=== PATIENT | male | born 1955 | race Caucasian/White ===

== ENCOUNTER 2017-06-12 16:47 | Emergency (ER) | payer OTHER ==
[~2017-06-12] VITALS: Ht 180.3 cm; Wt 73.0 kg
[~2017-06-12 16:47] MED LIST: ASPI325 PO; ASPI81CH PO; ATOR20 PO; BP MED?; Bactrim Ds Tab1 EACH PO; CLOP75 PO; CODACE30 PO; CYCL10 PO; Diflucan100 MG PO; ELIQUIS5 MG PO; FENO160 PO; GLIP10ER PO; GLIP5ER PO; HYDR1TAB94 PO; METO25ER PO; NITR.4SL SL; Naprosyn500 MG PO; Norco 5-325 Ta1 EACH PO; Percocet 5-3251 EACH PO; Tylenol325 MG PO; Vibramycin100 MG PO
[2017-06-12] MEDS ORDERED: Norco 5-325 Ta1 EACH PO (18:27)
[2017-06-12] MEDS ORDERED: Zofran Odt4 MG SL (18:27)
[2017-09-25] MEDS ORDERED: CLIN300 (20:02)
[2017-09-25] MEDS ORDERED: Zofran Odt4 MG PO (23:45)
[2017-10-07] MEDS ORDERED: PIOG30 PO (10:12)
[2017-10-07] MEDS ORDERED: PRAV20 PO (10:12)
== END 2017-06-12 18:39 | disposition home or self-care (01) ==
LOC: ER 16:47
DX: R51 Headache (principal); I25.2 Old myocardial infarction; E11.9 Type 2 diabetes mellitus without complications; I48.91 Unspecified atrial fibrillation; F17.200 Nicotine dependence, unspecified, uncomplicated; Z88.5 Allergy status to narcotic agent; Z88.0 Allergy status to penicillin; Z91.012 Allergy to eggs; Z91.011 Allergy to milk products; Z91.018 Allergy to other foods; Z79.899 Other long term (current) drug therapy; Z79.84 Long term (current) use of oral hypoglycemic drugs; Z87.442 Personal history of urinary calculi; Z90.49 Acquired absence of other specified parts of digestive tract; Z86.73 Personal history of transient ischemic attack (TIA), and cerebral infarction without residual deficits
CPT/HCPCS: 70450; 96372; 99284; J1200; J2765

== ENCOUNTER 2017-06-22 18:58 | Emergency (ER) | payer OTHER ==
[~2017-06-22] VITALS: Ht 180.3 cm; Wt 73.5 kg
[~2017-06-22 18:58] MED LIST changes: +Zofran Odt4 MG SL
[2017-06-22 19:36] LABS: BASOPHILS ABSOLUTE AUTO 0.05 K/mm3 (0.00-0.23); BASOPHILS PERCENT AUTO 1 % (0-2); EOSINOPHILS PERCENT AUTO 2 % (0-6); Hematocrit 40.6 % (37.0-53.0); Hemoglobin 14.5 g/dL (13.5-17.5); IMMATURE GRAN ABSOLUTE AUTO 0.02 K/mm3 (0.00-0.10); IMMATURE GRAN PERCENT AUTO 0 % (0-1); LYMPHOCYTES ABSOLUTE AUTO 1.35 K/mm3 (0.84-5.20); LYMPHOCYTES PERCENT AUTO 22 % (21-46); MONOCYTES ABSOLUTE AUTO 0.37 K/mm3 (0.16-1.47); MONOCYTES PERCENT AUTO 6 % (4-13); Mean Corpuscular HGB 28.6 pg (26.0-34.0); Mean Corpuscular HGB Conc 35.7 g/dL (31.5-36.5); Mean Corpuscular Volume 80 fL (80-100); Mean Platelet Volume 10.5 fL (9.1-12.4); NEUTROPHILS PERCENT AUTO 69 % (41-73); Platelet Count 223 K/mm3 (150-400); RDW Coefficient Variation 12.8 % (11.7-14.2); RDW Standard Deviation 36.7 fL (35.1-46.3); Red Blood Cell Count 5.07 M/mm3 (4.30-5.90); White Blood Cell Count 6.09 K/mm3 (4.00-11.30)
[2017-06-22 20:02] LABS: Troponin I <0.015 ng/mL (0.000-0.040)
[2017-06-22 20:04] LABS: Alanine Aminotransfer (ALT/SGP 16 U/L (12-78); Albumin, Blood 3.6 g/dL (3.4-5.0); Albumin/Globulin Ratio 0.9 (0.8-1.8); Alk Phos 67 U/L (50-136); Anion Gap 10 mmol/L (6-16); Aspartate Aminotrans (AST/SGOT 14 U/L (12-37); Bilirubin, Total 0.4 mg/dL (0.1-1.0); Blood Urea Nitrogen 12 mg/dL (8-24); Bun/Creatinine Ratio 14.8 (12.0-20.0); CO2, Blood 24 mmol/L (21-32); Calcium, Blood 8.8 mg/dL (8.5-10.1); Chloride, Blood 101 mmol/L (98-108); Creatinine, Blood 0.81 mg/dL (0.60-1.20); Glomerular Filtration Rate >60 (60-); Glucose, Blood 270 mg/dL (70-99); Sodium, Blood 135 mmol/L (136-145); Total Protein, Blood 7.6 g/dL (6.4-8.2)
[2017-06-22] MEDS ORDERED: Zofran Odt8 MG SL (21:44)
[2017-06-22] MEDS ORDERED: PSEU120ER PO (21:44)
[2017-06-22] MEDS ORDERED: Afrin15 ML (21:44)
[2017-09-25] MEDS ORDERED: CLIN300 (20:02)
[2017-09-25] MEDS ORDERED: Zofran Odt4 MG PO (23:45)
[2017-10-07] MEDS ORDERED: PIOG30 PO (10:12)
[2017-10-07] MEDS ORDERED: PRAV20 PO (10:12)
== END 2017-06-22 21:55 | disposition home or self-care (01) ==
LOC: ER 18:58
PROVIDERS: Physician Assistant
DX: J01.90 Acute sinusitis, unspecified (principal); I25.2 Old myocardial infarction; E11.9 Type 2 diabetes mellitus without complications; E78.00 Pure hypercholesterolemia, unspecified; I48.91 Unspecified atrial fibrillation; Z86.73 Personal history of transient ischemic attack (TIA), and cerebral infarction without residual deficits; Z87.442 Personal history of urinary calculi; Z90.49 Acquired absence of other specified parts of digestive tract
CPT/HCPCS: 36415; 71046; 80053; 84484; 85025; 93005; 93010; 99284

== ENCOUNTER 2017-07-18 18:12 | Emergency (ER) | payer OTHER ==
[~2017-07-18] VITALS: Ht 180.3 cm; Wt 73.0 kg
[~2017-07-18 18:12] MED LIST changes: +Afrin15 ML; +PSEU120ER PO; +Zofran Odt8 MG SL
[2017-07-18] MEDS ORDERED: PSEU120ER PO (18:42)
[2017-07-18] MEDS ORDERED: Vibramycin100 MG PO (18:42)
[2017-09-25] MEDS ORDERED: CLIN300 (20:02)
[2017-09-25] MEDS ORDERED: Zofran Odt4 MG PO (23:45)
[2017-10-07] MEDS ORDERED: PIOG30 PO (10:12)
[2017-10-07] MEDS ORDERED: PRAV20 PO (10:12)
== END 2017-07-18 18:51 | disposition home or self-care (01) ==
LOC: ER 18:12
DX: J32.9 Chronic sinusitis, unspecified (principal); I25.2 Old myocardial infarction; E11.9 Type 2 diabetes mellitus without complications; I48.91 Unspecified atrial fibrillation; E78.00 Pure hypercholesterolemia, unspecified; F17.210 Nicotine dependence, cigarettes, uncomplicated; Z88.5 Allergy status to narcotic agent; Z88.0 Allergy status to penicillin; Z91.012 Allergy to eggs; Z91.011 Allergy to milk products; Z91.018 Allergy to other foods; Z79.899 Other long term (current) drug therapy; Z86.73 Personal history of transient ischemic attack (TIA), and cerebral infarction without residual deficits; Z87.442 Personal history of urinary calculi; Z90.49 Acquired absence of other specified parts of digestive tract
CPT/HCPCS: 99283

== ENCOUNTER 2017-08-15 03:47 | Emergency (ER) | payer OTHER ==
[~2017-08-15] VITALS: Ht 180.3 cm; Wt 72.6 kg
[2017-08-15] MEDS ORDERED: ERYT1OIN BOTHEYES (04:16)
[2017-09-25] MEDS ORDERED: CLIN300 (20:02)
[2017-09-25] MEDS ORDERED: Zofran Odt4 MG PO (23:45)
[2017-10-07] MEDS ORDERED: PRAV20 PO (10:12)
[2017-10-07] MEDS ORDERED: PIOG30 PO (10:12)
== END 2017-08-15 04:38 | disposition home or self-care (01) ==
LOC: ER 03:47
DX: H10.023 Other mucopurulent conjunctivitis, bilateral (principal); I25.2 Old myocardial infarction; E11.9 Type 2 diabetes mellitus without complications; I48.91 Unspecified atrial fibrillation; F17.210 Nicotine dependence, cigarettes, uncomplicated; Z88.5 Allergy status to narcotic agent; Z88.0 Allergy status to penicillin; Z91.012 Allergy to eggs; Z91.011 Allergy to milk products; Z91.018 Allergy to other foods; Z79.01 Long term (current) use of anticoagulants; Z79.84 Long term (current) use of oral hypoglycemic drugs; Z87.442 Personal history of urinary calculi; Z86.73 Personal history of transient ischemic attack (TIA), and cerebral infarction without residual deficits
CPT/HCPCS: 99283

== ENCOUNTER 2017-09-12 19:48 | Emergency (ER) | payer OTHER ==
[~2017-09-12] VITALS: Ht 180.3 cm; Wt 77.6 kg
[~2017-09-12 19:48] MED LIST changes: +ERYT1OIN BOTHEYES
[2017-09-12] MEDS ORDERED: Cleocin HCl300 MG PO (20:13)
== END 2017-09-12 20:28 | disposition home or self-care (01) ==
LOC: ER 19:48
DX: J03.90 Acute tonsillitis, unspecified (principal); I25.2 Old myocardial infarction; E11.9 Type 2 diabetes mellitus without complications; E78.5 Hyperlipidemia, unspecified; I48.91 Unspecified atrial fibrillation; F17.210 Nicotine dependence, cigarettes, uncomplicated; Z87.442 Personal history of urinary calculi; Z86.73 Personal history of transient ischemic attack (TIA), and cerebral infarction without residual deficits; Z88.5 Allergy status to narcotic agent; Z88.0 Allergy status to penicillin; Z91.012 Allergy to eggs; Z91.011 Allergy to milk products; Z91.018 Allergy to other foods; Z79.899 Other long term (current) drug therapy; Z79.84 Long term (current) use of oral hypoglycemic drugs
CPT/HCPCS: 99283; J1100

== ENCOUNTER 2017-09-15 18:24 | Emergency (ER) | payer OTHER ==
[~2017-09-15] VITALS: Ht 180.3 cm; Wt 77.6 kg
[~2017-09-15 18:24] MED LIST changes: +Cleocin HCl300 MG PO
[2017-09-15] MEDS ORDERED: PSEU120ER PO (19:10)
== END 2017-09-15 19:14 | disposition home or self-care (01) ==
LOC: ER 18:24
DX: J32.9 Chronic sinusitis, unspecified (principal); Z88.5 Allergy status to narcotic agent; Z88.0 Allergy status to penicillin; Z91.011 Allergy to milk products; Z91.012 Allergy to eggs; Z91.018 Allergy to other foods; Z79.899 Other long term (current) drug therapy; I25.2 Old myocardial infarction; Z86.73 Personal history of transient ischemic attack (TIA), and cerebral infarction without residual deficits; E11.9 Type 2 diabetes mellitus without complications; E78.5 Hyperlipidemia, unspecified; I48.91 Unspecified atrial fibrillation; F17.210 Nicotine dependence, cigarettes, uncomplicated
CPT/HCPCS: 99282

== ENCOUNTER 2017-12-10 20:49 | Emergency (ER) | payer OTHER ==
[~2017-12-10] VITALS: Ht 180.3 cm; Wt 171.0 kg
[~2017-12-10 20:49] MED LIST changes: +CLIN300; +PIOG30 PO; +PRAV20 PO; +Zofran Odt4 MG PO
[2017-12-10 22:01] LABS: BASOPHILS ABSOLUTE AUTO 0.05 K/mm3 (0.00-0.23); BASOPHILS PERCENT AUTO 1 % (0-2); EOSINOPHILS ABSOLUTE AUTO 0.11 K/mm3 (0.00-0.68); EOSINOPHILS PERCENT AUTO 2 % (0-6); Hemoglobin 13.7 g/dL (13.5-17.5); IMMATURE GRAN ABSOLUTE AUTO 0.02 K/mm3 (0.00-0.10); IMMATURE GRAN PERCENT AUTO 0 % (0-1); LYMPHOCYTES ABSOLUTE AUTO 1.52 K/mm3 (0.84-5.20); LYMPHOCYTES PERCENT AUTO 25 % (21-46); MONOCYTES ABSOLUTE AUTO 0.32 K/mm3 (0.16-1.47); MONOCYTES PERCENT AUTO 5 % (4-13); Mean Corpuscular HGB 28.1 pg (26.0-34.0); Mean Corpuscular HGB Conc 35.1 g/dL (31.5-36.5); Mean Corpuscular Volume 80 fL (80-100); Mean Platelet Volume 10.7 fL (9.1-12.4); NEUTROPHILS ABSOLUTE AUTO 4.17 K/mm3 (1.96-9.15); NEUTROPHILS PERCENT AUTO 67 % (41-73); Platelet Count 236 K/mm3 (150-400); RDW Coefficient Variation 12.7 % (11.7-14.2); RDW Standard Deviation 36.2 fL (35.1-46.3); Red Blood Cell Count 4.88 M/mm3 (4.30-5.90); White Blood Cell Count 6.19 K/mm3 (4.00-11.30)
[2017-12-10 22:01] LABS: Source, Urine Clean Catch
[2017-12-10 22:07] LABS: Bilirubin, Urine Neg (Neg); Blood, Urine Neg (Neg); Glucose Qualitative, Urine 4+ (Neg); Ketones, Urine Neg (Neg); Leukocyte Esterase, Urine Neg (Neg); Nitrite, Urine Neg (Neg); Protein, Urine 1+ (Neg); Specific Gravity, Urine 1.025 (1.003-1.022); Urobilinogen, Urine NORM (Normal)
[2017-12-10 22:12] LABS: Appearance, Urine Clear (Clear); Color, Urine Yellow (P-Yellow)
[2017-12-10 22:17] LABS: Alanine Aminotransfer (ALT/SGP 15 U/L (12-78); Albumin, Blood 3.8 g/dL (3.4-5.0); Alk Phos 55 U/L (50-136); Anion Gap 9 mmol/L (6-16); Aspartate Aminotrans (AST/SGOT 9 U/L (12-37); Bilirubin, Total 0.6 mg/dL (0.1-1.0); Blood Urea Nitrogen 17 mg/dL (8-24); Bun/Creatinine Ratio 19.6 (12.0-20.0); CO2, Blood 23 mmol/L (21-32); Calcium, Blood 8.6 mg/dL (8.5-10.1); Chloride, Blood 104 mmol/L (98-108); Creatinine, Blood 0.87 mg/dL (0.60-1.20); Globulin, Blood 3.7 g/dL (2.2-4.0); Glomerular Filtration Rate >60 (60-); Glucose, Blood 260 mg/dL (70-99); Potassium, Blood 3.9 mmol/L (3.5-5.5); Sodium, Blood 136 mmol/L (136-145); Total Protein, Blood 7.5 g/dL (6.4-8.2)
== END 2017-12-11 01:13 | disposition home or self-care (01) ==
LOC: ER 20:49
PROVIDERS: Emergency Medicine
DX: R51 Headache (principal); Z88.5 Allergy status to narcotic agent; Z88.0 Allergy status to penicillin; Z91.012 Allergy to eggs; Z91.011 Allergy to milk products; Z91.018 Allergy to other foods; Z79.899 Other long term (current) drug therapy; E11.9 Type 2 diabetes mellitus without complications; I25.2 Old myocardial infarction; I48.91 Unspecified atrial fibrillation; E78.5 Hyperlipidemia, unspecified; F17.210 Nicotine dependence, cigarettes, uncomplicated
CPT/HCPCS: 36415; 80053; 85025; 96374; 99283; J1885

== ENCOUNTER 2018-06-16 21:49 | Emergency (ER) | payer OTHER ==
[~2018-06-16] VITALS: Ht 180.3 cm; Wt 74.8 kg
[2018-06-16 22:28] LABS: BASOPHILS ABSOLUTE AUTO 0.05 K/mm3 (0.00-0.23); BASOPHILS PERCENT AUTO 1 % (0-2); EOSINOPHILS ABSOLUTE AUTO 0.19 K/mm3 (0.00-0.68); EOSINOPHILS PERCENT AUTO 3 % (0-6); Hematocrit 43.9 % (37.0-53.0); IMMATURE GRAN ABSOLUTE AUTO 0.01 K/mm3 (0.00-0.10); IMMATURE GRAN PERCENT AUTO 0 % (0-1); LYMPHOCYTES ABSOLUTE AUTO 1.28 K/mm3 (0.84-5.20); LYMPHOCYTES PERCENT AUTO 23 % (21-46); MONOCYTES ABSOLUTE AUTO 0.32 K/mm3 (0.16-1.47); MONOCYTES PERCENT AUTO 6 % (4-13); Mean Corpuscular HGB Conc 34.2 g/dL (31.5-36.5); Mean Corpuscular Volume 82 fL (80-100); Mean Platelet Volume 10.7 fL (9.1-12.4); NEUTROPHILS ABSOLUTE AUTO 3.69 K/mm3 (1.96-9.15); NEUTROPHILS PERCENT AUTO 67 % (41-73); Platelet Count 207 K/mm3 (150-400); RDW Coefficient Variation 12.5 % (11.7-14.2); RDW Standard Deviation 37.6 fL (35.1-46.3); Red Blood Cell Count 5.35 M/mm3 (4.30-5.90); White Blood Cell Count 5.54 K/mm3 (4.00-11.30)
[2018-06-16 22:47] LABS: Alanine Aminotransfer (ALT/SGP 11 U/L (12-78); Albumin, Blood 4.1 g/dL (3.4-5.0); Alk Phos 68 U/L (50-136); Anion Gap 8 mmol/L (6-16); Aspartate Aminotrans (AST/SGOT 10 U/L (12-37); Bilirubin, Total 0.6 mg/dL (0.1-1.0); Blood Urea Nitrogen 19 mg/dL (8-24); Bun/Creatinine Ratio 18.8 (12.0-20.0); CO2, Blood 26 mmol/L (21-32); Calcium, Blood 8.8 mg/dL (8.5-10.1); Chloride, Blood 98 mmol/L (98-108); Creatinine, Blood 1.01 mg/dL (0.60-1.20); Globulin, Blood 4.1 g/dL (2.2-4.0); Glomerular Filtration Rate >60 (60-); Glucose, Blood 307 mg/dL (70-99); Potassium, Blood 4.4 mmol/L (3.5-5.5); Sodium, Blood 132 mmol/L (136-145); Total Protein, Blood 8.2 g/dL (6.4-8.2); Troponin I <0.015 ng/mL (0.000-0.040)
[2018-07-04] MEDS ORDERED: Cleocin HCl300 MG PO (19:52)
== END 2018-06-16 23:44 | disposition home or self-care (01) ==
LOC: ER 21:49
PROVIDERS: Emergency Medicine
DX: R07.9 Chest pain, unspecified (principal); E11.9 Type 2 diabetes mellitus without complications; E78.00 Pure hypercholesterolemia, unspecified; I25.2 Old myocardial infarction; I48.91 Unspecified atrial fibrillation; F17.210 Nicotine dependence, cigarettes, uncomplicated; Z88.5 Allergy status to narcotic agent; Z88.0 Allergy status to penicillin; Z91.011 Allergy to milk products; Z91.02 Food additives allergy status; Z79.84 Long term (current) use of oral hypoglycemic drugs; Z79.899 Other long term (current) drug therapy
CPT/HCPCS: 36415; 71046; 80053; 83690; 84484; 85025; 93005; 93010; 99285-25

== ENCOUNTER 2018-06-23 10:00 | Emergency (ER) | payer OTHER ==
[~2018-06-23] VITALS: Ht 180.3 cm; Wt 74.4 kg
[2018-06-23 10:37] LABS: BASOPHILS ABSOLUTE AUTO 0.03 K/mm3 (0.00-0.23); BASOPHILS PERCENT AUTO 0 % (0-2); EOSINOPHILS ABSOLUTE AUTO 0.11 K/mm3 (0.00-0.68); EOSINOPHILS PERCENT AUTO 1 % (0-6); Hematocrit 46.5 % (37.0-53.0); Hemoglobin 15.9 g/dL (13.5-17.5); IMMATURE GRAN ABSOLUTE AUTO 0.02 K/mm3 (0.00-0.10); IMMATURE GRAN PERCENT AUTO 0 % (0-1); LYMPHOCYTES ABSOLUTE AUTO 1.77 K/mm3 (0.84-5.20); LYMPHOCYTES PERCENT AUTO 22 % (21-46); MONOCYTES ABSOLUTE AUTO 0.54 K/mm3 (0.16-1.47); MONOCYTES PERCENT AUTO 7 % (4-13); Mean Corpuscular HGB 27.6 pg (26.0-34.0); Mean Corpuscular HGB Conc 34.2 g/dL (31.5-36.5); Mean Corpuscular Volume 81 fL (80-100); Mean Platelet Volume 11.2 fL (9.1-12.4); NEUTROPHILS PERCENT AUTO 70 % (41-73); Platelet Count 251 K/mm3 (150-400); RDW Coefficient Variation 12.4 % (11.7-14.2); Red Blood Cell Count 5.76 M/mm3 (4.30-5.90); White Blood Cell Count 8.17 K/mm3 (4.00-11.30)
[2018-06-23 10:53] LABS: Alanine Aminotransfer (ALT/SGP 10 U/L (12-78); Albumin, Blood 4.2 g/dL (3.4-5.0); Alk Phos 68 U/L (50-136); Anion Gap 11 mmol/L (6-16); Aspartate Aminotrans (AST/SGOT 11 U/L (12-37); Bilirubin, Total 1.2 mg/dL (0.1-1.0); Blood Urea Nitrogen 20 mg/dL (8-24); Bun/Creatinine Ratio 17.1 (12.0-20.0); CO2, Blood 24 mmol/L (21-32); Calcium, Blood 8.9 mg/dL (8.5-10.1); Chloride, Blood 97 mmol/L (98-108); Creatinine, Blood 1.17 mg/dL (0.60-1.20); Globulin, Blood 4.4 g/dL (2.2-4.0); Glomerular Filtration Rate >60 (60-); Glucose, Blood 227 mg/dL (70-99); Potassium, Blood 4.2 mmol/L (3.5-5.5); Sodium, Blood 132 mmol/L (136-145); Total Protein, Blood 8.6 g/dL (6.4-8.2)
[2018-06-23 11:13] LABS: Influenza A Negative (NEGATIVE); Influenza B Negative (NEGATIVE)
[2018-06-23 14:09] LABS: Source, Urine Clean Catch
[2018-06-23 14:40] LABS: Appearance, Urine Clear (Clear); Bilirubin, Urine Neg (Neg); Blood, Urine Neg (Neg); Color, Urine Yellow (P-Yellow); Glucose Qualitative, Urine 4+ (Neg); Ketones, Urine 3+ (Neg); Leukocyte Esterase, Urine Neg (Neg); Nitrite, Urine Neg (Neg); Protein, Urine 2+ (Neg); Specific Gravity, Urine 1.015 (1.003-1.022); Urobilinogen, Urine NORM (Normal)
[2018-06-23 14:47] LABS: White Blood Cells, Urine Not Seen /hpf (0-5)
[2018-06-23 14:48] LABS: Bacteria Not Seen /hpf; Red Blood Cells, Urine Not Seen /hpf (0-2); Squamous Epithelial Cells Rare /hpf (Few)
[2018-06-23] MEDS ORDERED: Zofran8 MG PO (14:57)
[2018-07-04] MEDS ORDERED: Cleocin HCl300 MG PO (19:52)
== END 2018-06-23 15:10 | disposition home or self-care (01) ==
LOC: ER 10:00
PROVIDERS: Emergency Medicine
DX: J06.9 Acute upper respiratory infection, unspecified (principal); R41.0 Disorientation, unspecified; R04.0 Epistaxis; E11.9 Type 2 diabetes mellitus without complications; E78.00 Pure hypercholesterolemia, unspecified; I25.2 Old myocardial infarction; I48.91 Unspecified atrial fibrillation; Z87.442 Personal history of urinary calculi; Z86.73 Personal history of transient ischemic attack (TIA), and cerebral infarction without residual deficits; Z79.84 Long term (current) use of oral hypoglycemic drugs; Z79.899 Other long term (current) drug therapy; Z91.012 Allergy to eggs; Z88.8 Allergy status to other drugs, medicaments and biological substances; Z91.011 Allergy to milk products; Z88.0 Allergy status to penicillin; Z87.891 Personal history of nicotine dependence
CPT/HCPCS: 36415; 70450; 71046; 80053; 81001; 83605; 85025; 87040; 87804; 96361; 96374; 96375; 99284-25; J1885; J2405; J7120

== ENCOUNTER 2018-07-02 21:23 | Emergency (ER) | payer OTHER ==
[~2018-07-02] VITALS: Ht 182.9 cm; Wt 77.1 kg
[~2018-07-02 21:23] MED LIST changes: +Zofran8 MG PO
[2018-07-02 21:46] LABS: BASOPHILS ABSOLUTE AUTO 0.05 K/mm3 (0.00-0.23); BASOPHILS PERCENT AUTO 1 % (0-2); EOSINOPHILS ABSOLUTE AUTO 0.14 K/mm3 (0.00-0.68); EOSINOPHILS PERCENT AUTO 2 % (0-6); Hematocrit 40.5 % (37.0-53.0); Hemoglobin 13.9 g/dL (13.5-17.5); IMMATURE GRAN ABSOLUTE AUTO 0.02 K/mm3 (0.00-0.10); IMMATURE GRAN PERCENT AUTO 0 % (0-1); LYMPHOCYTES ABSOLUTE AUTO 1.22 K/mm3 (0.84-5.20); LYMPHOCYTES PERCENT AUTO 14 % (21-46); MONOCYTES ABSOLUTE AUTO 0.38 K/mm3 (0.16-1.47); MONOCYTES PERCENT AUTO 4 % (4-13); Mean Corpuscular HGB Conc 34.3 g/dL (31.5-36.5); Mean Corpuscular Volume 82 fL (80-100); Mean Platelet Volume 10.3 fL (9.1-12.4); NEUTROPHILS ABSOLUTE AUTO 6.91 K/mm3 (1.96-9.15); NEUTROPHILS PERCENT AUTO 79 % (41-73); Platelet Count 269 K/mm3 (150-400); RDW Coefficient Variation 12.5 % (11.7-14.2); RDW Standard Deviation 37.3 fL (35.1-46.3); Red Blood Cell Count 4.96 M/mm3 (4.30-5.90); White Blood Cell Count 8.72 K/mm3 (4.00-11.30)
[2018-07-02 22:00] LABS: International Normalized Ratio 0.94
[2018-07-02 22:06] LABS: Alanine Aminotransfer (ALT/SGP 14 U/L (12-78); Albumin, Blood 3.8 g/dL (3.4-5.0); Alk Phos 64 U/L (50-136); Anion Gap 7 mmol/L (6-16); Aspartate Aminotrans (AST/SGOT 10 U/L (12-37); Bilirubin, Total 0.7 mg/dL (0.1-1.0); Blood Urea Nitrogen 15 mg/dL (8-24); Bun/Creatinine Ratio 15.7 (12.0-20.0); CO2, Blood 25 mmol/L (21-32); Calcium, Blood 8.7 mg/dL (8.5-10.1); Chloride, Blood 101 mmol/L (98-108); Creatinine, Blood 0.96 mg/dL (0.60-1.20); Glomerular Filtration Rate >60 (60-); Glucose, Blood 228 mg/dL (70-99); Potassium, Blood 3.9 mmol/L (3.5-5.5); Sodium, Blood 133 mmol/L (136-145); Total Protein, Blood 7.8 g/dL (6.4-8.2)
[2018-07-04] MEDS ORDERED: Cleocin HCl300 MG PO (19:52)
== END 2018-07-03 00:01 | disposition left against medical advice (07) ==
LOC: ER 21:23
PROVIDERS: Emergency Medicine
DX: R51 Headache (principal); R11.0 Nausea; E11.9 Type 2 diabetes mellitus without complications; E78.5 Hyperlipidemia, unspecified; F17.210 Nicotine dependence, cigarettes, uncomplicated; I25.2 Old myocardial infarction; I48.91 Unspecified atrial fibrillation; Z88.5 Allergy status to narcotic agent; Z88.0 Allergy status to penicillin; Z91.011 Allergy to milk products; Z91.02 Food additives allergy status; Z79.84 Long term (current) use of oral hypoglycemic drugs; Z79.899 Other long term (current) drug therapy; Z87.442 Personal history of urinary calculi
CPT/HCPCS: 36415; 80053; 85025; 85610; 99281

== ENCOUNTER 2018-07-06 18:31 | Inpatient (IN) | payer OTHER ==
[~2018-07-06] VITALS: Ht 180.3 cm; Wt 76.7 kg
[2018-07-06 18:57] LABS: BASOPHILS ABSOLUTE AUTO 0.05 K/mm3 (0.00-0.23); BASOPHILS PERCENT AUTO 1 % (0-2); EOSINOPHILS ABSOLUTE AUTO 0.23 K/mm3 (0.00-0.68); EOSINOPHILS PERCENT AUTO 2 % (0-6); Hematocrit 40.2 % (37.0-53.0); Hemoglobin 13.6 g/dL (13.5-17.5); IMMATURE GRAN ABSOLUTE AUTO 0.03 K/mm3 (0.00-0.10); IMMATURE GRAN PERCENT AUTO 0 % (0-1); LYMPHOCYTES ABSOLUTE AUTO 1.23 K/mm3 (0.84-5.20); LYMPHOCYTES PERCENT AUTO 13 % (21-46); MONOCYTES ABSOLUTE AUTO 0.58 K/mm3 (0.16-1.47); MONOCYTES PERCENT AUTO 6 % (4-13); Mean Corpuscular HGB 27.6 pg (26.0-34.0); Mean Corpuscular HGB Conc 33.8 g/dL (31.5-36.5); Mean Corpuscular Volume 82 fL (80-100); Mean Platelet Volume 10.5 fL (9.1-12.4); NEUTROPHILS ABSOLUTE AUTO 7.72 K/mm3 (1.96-9.15); NEUTROPHILS PERCENT AUTO 79 % (41-73); Platelet Count 265 K/mm3 (150-400); RDW Coefficient Variation 12.3 % (11.7-14.2); RDW Standard Deviation 36.7 fL (35.1-46.3); Red Blood Cell Count 4.93 M/mm3 (4.30-5.90); White Blood Cell Count 9.84 K/mm3 (4.00-11.30)
[2018-07-06 19:12] LABS: Alanine Aminotransfer (ALT/SGP 20 U/L (12-78); Albumin, Blood 3.5 g/dL (3.4-5.0); Albumin/Globulin Ratio 0.8 (0.8-1.8); Alk Phos 80 U/L (50-136); Anion Gap 7 mmol/L (6-16); Aspartate Aminotrans (AST/SGOT 13 U/L (12-37); Bilirubin, Total 0.4 mg/dL (0.1-1.0); Blood Urea Nitrogen 15 mg/dL (8-24); Bun/Creatinine Ratio 15.3 (12.0-20.0); CO2, Blood 26 mmol/L (21-32); Calcium, Blood 8.7 mg/dL (8.5-10.1); Chloride, Blood 101 mmol/L (98-108); Creatinine, Blood 0.98 mg/dL (0.60-1.20); Globulin, Blood 4.3 g/dL (2.2-4.0); Glomerular Filtration Rate >60 (60-); Glucose, Blood 214 mg/dL (70-99); Potassium, Blood 3.8 mmol/L (3.5-5.5); Sodium, Blood 134 mmol/L (136-145); Total Protein, Blood 7.8 g/dL (6.4-8.2)
[2018-07-07 06:09] LABS: BASOPHILS ABSOLUTE AUTO 0.04 K/mm3 (0.00-0.23); BASOPHILS PERCENT AUTO 1 % (0-2); EOSINOPHILS ABSOLUTE AUTO 0.23 K/mm3 (0.00-0.68); EOSINOPHILS PERCENT AUTO 3 % (0-6); Hematocrit 35.3 % (37.0-53.0); Hemoglobin 12.1 g/dL (13.5-17.5); IMMATURE GRAN ABSOLUTE AUTO 0.02 K/mm3 (0.00-0.10); IMMATURE GRAN PERCENT AUTO 0 % (0-1); LYMPHOCYTES ABSOLUTE AUTO 1.07 K/mm3 (0.84-5.20); LYMPHOCYTES PERCENT AUTO 13 % (21-46); MONOCYTES ABSOLUTE AUTO 0.61 K/mm3 (0.16-1.47); MONOCYTES PERCENT AUTO 7 % (4-13); Mean Corpuscular HGB 27.4 pg (26.0-34.0); Mean Corpuscular HGB Conc 34.3 g/dL (31.5-36.5); Mean Corpuscular Volume 80 fL (80-100); Mean Platelet Volume 10.6 fL (9.1-12.4); NEUTROPHILS ABSOLUTE AUTO 6.27 K/mm3 (1.96-9.15); NEUTROPHILS PERCENT AUTO 76 % (41-73); Platelet Count 231 K/mm3 (150-400); RDW Coefficient Variation 12.3 % (11.7-14.2); RDW Standard Deviation 35.7 fL (35.1-46.3); Red Blood Cell Count 4.41 M/mm3 (4.30-5.90); White Blood Cell Count 8.24 K/mm3 (4.00-11.30)
[2018-07-07 06:25] LABS: Anion Gap 9 mmol/L (6-16); Blood Urea Nitrogen 15 mg/dL (8-24); Bun/Creatinine Ratio 16.7 (12.0-20.0); CO2, Blood 23 mmol/L (21-32); Chloride, Blood 104 mmol/L (98-108); Glomerular Filtration Rate >60 (60-); Glucose, Blood 213 mg/dL (70-99); Potassium, Blood 3.9 mmol/L (3.5-5.5); Sodium, Blood 136 mmol/L (136-145)
--- NOTE | 2018-07-07 10:51 | NUR ---
[facility] CLINICAL VISIT: Introduced myself to pt and with his permission discussed his concerns. He missed work last night due to hospitalization and does not feel he can tonight or he will lose his job. He and his moved here 3 years ago. He's a combat . He does not want to access 's services or health care that he may be eligible for. He does not have his rent money due in two days and is worried he "will be out on the street". We discussed landlord-tenant laws in [place] and I gave him a number to call to get information on mandatory notice and eviction laws for renters. Booklet of resources given to him with plan for him to call [facility] for rent or other forms of assistance. He states all his sick time has been used up with another illness recently. He works nights. He could do outpatient IV therapy in the daytime if his r foot/5th toe infection could be treated as an outpatient. He expresses his intent to leave at 4:30 pm today with or without d/c orders. Report called to on my visit and report given to RN. Pt states he has an advanced directive and wants to be rescusitated if needed. He thought we had a copy on file but we do not. Pt hoping his will show up soon. SHe does not have a phone and he does not have a ride without her. He has their cell phone with him. He thinks his may have a copy of his AD that we can copy in her purse. I offered to complete a POLST with the pt. He was noncomittal re: pursuing that. Pt was initially very chaitanya and angry appearing during our visit but as we talked became less so. He was appreciative of the information and contact info for [facility] and local resources. He has lived in the same rental for three years. He states other than his he does not have any other family locally or otherwise. He has a past medical hx of a-fib and takes Eliquis, CVA, DM with poor control/compliance, CAD, migranes and syncopal episodes. I encouraged him to follow medical advice to preserve his foot and health so that he could continue to be independent and have some level of quality of life. I touched on complications of noncompliance with an infection such as his and his other health issues. Will enter orders for manager social work re: additional community resources that may be available to him.
--- NOTE | 2018-07-07 12:17 | NUR ---
PT REFUSES CBG CHECKS AND INSULIN. DR. CEDILLO AWARE.
--- NOTE | 2018-07-07 16:28 | NUR ---
SHIFT SUMMARY NO ACUTE CHANGES SINCE ARRIVAL TO UNIT. VSS. PT CONTINUES TO REFUSE CBGS AND INSULIN. MEDICATED X1 WITH IV FENTANYL FOR PAIN. PT APPEARS TO BE COMFORTABLE AT THIS TIME. INDEPENDENT IN ROOM. IV IS SL EXCEPT FOR SCHEDULED IV ABX. RIGHT DORSAL FOOT ERYTHEMA MARKED AND RIGHT 5TH TOE IS OPEN TO AIR. WOUND DOCUMENTATION ON CHART. AT BEDSIDE AT THIS TIME AND THIS RN ENCOURAGED TO BRING IN HOME MED ELIQUIS. CALL LIGHT WITHIN REACH. WILL CONT TO MONITOR.
[2018-07-08 05:58] LABS: BASOPHILS ABSOLUTE AUTO 0.04 K/mm3 (0.00-0.23); BASOPHILS PERCENT AUTO 1 % (0-2); EOSINOPHILS ABSOLUTE AUTO 0.21 K/mm3 (0.00-0.68); EOSINOPHILS PERCENT AUTO 3 % (0-6); Hematocrit 33.4 % (37.0-53.0); Hemoglobin 11.3 g/dL (13.5-17.5); IMMATURE GRAN ABSOLUTE AUTO 0.02 K/mm3 (0.00-0.10); IMMATURE GRAN PERCENT AUTO 0 % (0-1); LYMPHOCYTES ABSOLUTE AUTO 1.08 K/mm3 (0.84-5.20); LYMPHOCYTES PERCENT AUTO 14 % (21-46); MONOCYTES ABSOLUTE AUTO 0.69 K/mm3 (0.16-1.47); MONOCYTES PERCENT AUTO 9 % (4-13); Mean Corpuscular HGB 27.8 pg (26.0-34.0); Mean Corpuscular HGB Conc 33.8 g/dL (31.5-36.5); Mean Corpuscular Volume 82 fL (80-100); Mean Platelet Volume 10.1 fL (9.1-12.4); NEUTROPHILS ABSOLUTE AUTO 5.79 K/mm3 (1.96-9.15); NEUTROPHILS PERCENT AUTO 74 % (41-73); Platelet Count 231 K/mm3 (150-400); RDW Coefficient Variation 12.4 % (11.7-14.2); RDW Standard Deviation 37.7 fL (35.1-46.3); Red Blood Cell Count 4.06 M/mm3 (4.30-5.90); White Blood Cell Count 7.83 K/mm3 (4.00-11.30)
[2018-07-08 06:20] LABS: Anion Gap 7 mmol/L (6-16); Blood Urea Nitrogen 14 mg/dL (8-24); Bun/Creatinine Ratio 13.3 (12.0-20.0); CO2, Blood 26 mmol/L (21-32); Calcium, Blood 7.9 mg/dL (8.5-10.1); Chloride, Blood 104 mmol/L (98-108); Creatinine, Blood 1.05 mg/dL (0.60-1.20); Glomerular Filtration Rate >60 (60-); Glucose, Blood 201 mg/dL (70-99); Potassium, Blood 4.2 mmol/L (3.5-5.5); Sodium, Blood 137 mmol/L (136-145)
--- NOTE | 2018-07-08 06:41 | NUR ---
SUMMARY PT NON COMPLIANT WITH DIABETIC CARE AND DIET. CURSING AT STAFF AND ALLOWING MINIMAL ASSESSMENT AND CHECKS. APOLOGETIC FOR HUSBANDS BEHAVIOR. PTY DENIES BEING DIABETIC. PTS REPORTS SHE BROUGHT IN HIS ELIQUIS AND HE TOOK IT APPROX 2029, BUT PT REFUSES TO ALLOW NURSE TO SEND MED FOR CONFIRMATION AND FOR SCAN BAR PLACEMENT. DISCUSSED PROCEDURE WITH PT AND IMPORTANCE AND PT CONTINUES TO REFUSE.
--- NOTE | 2018-07-08 18:23 | NUR ---
SUMMARY NO ACUTE CHANGES T/O SHIFT. PT REFUSED CBGS T/O DAY. REPORTED TOOK OWN ELIQUIS, REFUSED HOSPITAL DOSE. SHOWERED THIS AFTERNOON. DIME SIZED AREA OF R FIFTH TOE OPENED THIS AFTERNOON. PT REFUSED BANDAID TO TOE. IV ABX ADMINISTERED PER ORDERS. MEDICATED PER ORDERS FOR PAIN T/O SHIFT. CALL LIGHT IN REACH.
--- NOTE | 2018-07-09 10:40 | NUR ---
DR WHALEN IN TO SEE PT.
--- NOTE | 2018-07-09 12:06 | NUR ---
RUBY ENGINEER IN TO SEE PT.
--- NOTE | 2018-07-09 12:09 | NUR ---
PLACED DRESSING TO R FOOT PER ORDERS.
--- NOTE | 2018-07-09 16:08 | NUR ---
DR DASH CONSULT DR DASH NOT SPREADER BOX OPERATOR UNTIL JUL 13. NOT TAKING CONSULT AT THIS TIME. CALL ON JUL 13.
--- NOTE | 2018-07-09 17:15 | NUR ---
SUMMARY NO ACUTE CHANGES T/O SHIFT. PT TOILETING INDEPENDENTLY. REPORTED VOIDING AND HAD BM TODAY. CONTINUES TO REFUSE CBG CHECKS. MEDICATED PER ORDERS T/O SHIFT FOR PAIN TO R FOOT. VANCO ADDED TO ABX REGIMEN. PT ALLOWED DRESSING TO BE PLACED TO R FIFTH TOE. SPOKE TO DR DASH TODAY; HE IS NOT ON TAKING CONSULTS UNTIL THURSDAY. WILL HAVE TO CALL THURSDAY MORNING.
--- NOTE | 2018-07-10 06:20 | NUR ---
SHIFT SUMMARY PT A&O X4 T/O SHIFT. DRESSING TO R 5TH TOE REMOVED; SCANT DRAINAGE; NEW GAUZE AND COBAN THIS AM. PAIN MANGED PER EMAR. PPPX4. PT REPORTS NUMBNESS IN LUE UNCHAGED SINCE ADMISSION. EDUCATION ON FALL PREVENTION; PT STS UNDERSTANDING BUT REFUSED TO FOLLOW GUIDELINES. PT INDEPENDENT IN ROOM. CALL LIGHT IN REACH; PT DEMONSTRATES USE. WCTM UNTIL REPORT TO DAY SHIFT RN.
--- NOTE | 2018-07-10 07:36 | NUR ---
CARE ROUNDING PT REQUESTING THAT WE DO NOT ROUND EVERY HOUR IT INTERFERES WITH HIS SLEEPING. REQUESTED THAT WE ROUND EVERY 5HOURS, EDUCATED PATIENT THAT WE NEED TO AT LEAST ROUND EVERY 2 HOURS-PT AGREEABLE AT THIS TIME.
--- NOTE | 2018-07-10 18:23 | NUR ---
SHIFT SUMMARY PT HAS DONE WELL THIS SHIFT. DRESSING CHANGED ONCE, REDNESS DOES NOT APPEAR TO HAVE GROWN PAST THE OUTLINE. MEDICATED WITH 50MCG FENTANYL Q4 PRN. IV ABX PER EMAR. PT CONTINUES TO BE NON-COMPLIANT WITH BLOOD GLUCOSE CHECKS AND INSULIN-MD AWARE AND NO NEW ORDERS TO DC-WILL CONTINUE TO OFFER AND EDUCATE ON THE IMPORTANCE OF GLUCOSE MONITORING AND TX WITH WOUND CARE AND DOCUMENT WHEN PATIENT REFUSES.
[2018-07-10 22:23] LABS: Vancomycin, Trough 15.9 ug/mL (5.0-10.0)
--- NOTE | 2018-07-10 23:39 | NUR ---
REPORT TO THOR SY APPROX. 2019. approx 2039 PT TRANSFERED TO ROOM 336 VIA WC WITH BELONGINGS. WOUND TO R 5TH TOE ASSESSED WITH KERRIE MCRAE.
--- NOTE | 2018-07-11 05:14 | NUR ---
PT SURGICAL TRANSFER, HAS A DIABETIC PRESSURE ULCER ON 4TH TOE OF RIGHT FOOT, PICS IN CHART. REDNESS ALSO NOTED AND HAS BEEN OUTLINED. AREA COVERED WITH 4X4 AND WRAPPED WITH MARIBEL WRAP. PT IV SITE RED AND TENDER, BUT REFUSES NEW IV AT POINT IF ARRIVAL. PT INFORMED AFTER IV MEDICATIONS INFUSED THAT HE MAY NEED A NEW IV PLACED CURRENT IV MORE TENDER AFTER ANTIBIOTIC INFUSIONS. PT SEEMS TO BE AGREEABLE WITH HAVING ANOTHER IV PLACED THIS AM.
[2018-07-11 06:18] LABS: BASOPHILS ABSOLUTE AUTO 0.07 K/mm3 (0.00-0.23); BASOPHILS PERCENT AUTO 1 % (0-2); EOSINOPHILS ABSOLUTE AUTO 0.27 K/mm3 (0.00-0.68); EOSINOPHILS PERCENT AUTO 4 % (0-6); Hematocrit 31.3 % (37.0-53.0); Hemoglobin 10.5 g/dL (13.5-17.5); IMMATURE GRAN ABSOLUTE AUTO 0.02 K/mm3 (0.00-0.10); IMMATURE GRAN PERCENT AUTO 0 % (0-1); LYMPHOCYTES ABSOLUTE AUTO 0.87 K/mm3 (0.84-5.20); LYMPHOCYTES PERCENT AUTO 12 % (21-46); MONOCYTES ABSOLUTE AUTO 0.63 K/mm3 (0.16-1.47); MONOCYTES PERCENT AUTO 9 % (4-13); Mean Corpuscular HGB 27.1 pg (26.0-34.0); Mean Corpuscular HGB Conc 33.5 g/dL (31.5-36.5); Mean Corpuscular Volume 81 fL (80-100); Mean Platelet Volume 10.3 fL (9.1-12.4); NEUTROPHILS ABSOLUTE AUTO 5.28 K/mm3 (1.96-9.15); NEUTROPHILS PERCENT AUTO 74 % (41-73); Platelet Count 250 K/mm3 (150-400); RDW Coefficient Variation 12.1 % (11.7-14.2); RDW Standard Deviation 35.6 fL (35.1-46.3); Red Blood Cell Count 3.87 M/mm3 (4.30-5.90); White Blood Cell Count 7.14 K/mm3 (4.00-11.30)
[2018-07-11 06:37] LABS: Anion Gap 7 mmol/L (6-16); Blood Urea Nitrogen 15 mg/dL (8-24); Bun/Creatinine Ratio 14.7 (12.0-20.0); CO2, Blood 27 mmol/L (21-32); Chloride, Blood 100 mmol/L (98-108); Creatinine, Blood 1.02 mg/dL (0.60-1.20); Glomerular Filtration Rate >60 (60-); Glucose, Blood 281 mg/dL (70-99); Potassium, Blood 4.7 mmol/L (3.5-5.5); Sodium, Blood 134 mmol/L (136-145)
--- NOTE | 2018-07-11 17:04 | NUR ---
SHIFT SUMMARY PATIENT PLEASANT. NO ACUTE CONCERNS AT THIS TIME. WILL CONTINUE TO MONITOR.IV ANTIBIOTICS HAVE BEEN PLACED.
--- NOTE | 2018-07-12 04:39 | NUR ---
SHIFT SUMMARY PT SHOWERED EARLY ON IN SHIFT. SLEPT WELL T/O THE NIGHT. HAS BEEN MEDICATED FOR PAIN X2. NO ACUTE CHANGES NOTED. WILL CONTINUE TO MONITOR.
[2018-07-12 10:42] LABS: Vancomycin, Trough 17.4 ug/mL (5.0-10.0)
--- NOTE | 2018-07-12 18:31 | NUR ---
PT. LAYING IN BED, WENT OUT TO SMOKE EARLIER WHEN SPOUSE WAS HER. PT. QUITE AGGRAVATED THAT THEY BLACKED OFF EVERYTHING ON HIS MENU. MILK, EGGS, AND ORANGE JUICE WERE LISTED ALLERGIES WHEN IN FACT THEY WERE DISLIKES. PT. HAPPY WITH THE NEW MENU. PT. HAS COMPLAINED ABOOUT EVERYTHING FROM HIS MEDS, TO HIS MEALS, TO THE HEAT IN HIS ROOM. PT. REFUSES TO LET US CHECK HIS BLOOD SUGARS OR GIVE INSULIN. "I HAVE RUN IN THE 200 AND 300 BLOOD SUGARS FOR YEARS AND NOONE HAS DONE ANYTHING ABOUT IT, SO WHY BOTHER NOW. STATES PT.
--- NOTE | 2018-07-13 03:39 | NUR ---
THE PATIENT PRESENTED THIS SHIFT WITH VITALS WNL, A&O AND WITH LUNGS THAT WERE CLEAR. THE PATIENT REFUSED TO HAVE CHEM B/G TAKEN. THE PATIENT COMPLAINED OF HIS ROOM BEING COLD AND MAINTAINANCE WAS CONTACTED TO LOOK AT THE PROBLEM. THE PATIENT HAS BEEN PLEASANT ALL SHIFT AND COOPERTIVE. THE PATIENT HAS SLEPT MOST OF THE SHIFT AND WAS WOKE FOR HIS LATE SHIFT VITALS. WILL CONTINUE TO MONITOR.
[2018-07-13 05:33] LABS: BASOPHILS ABSOLUTE AUTO 0.07 K/mm3 (0.00-0.23); BASOPHILS PERCENT AUTO 1 % (0-2); EOSINOPHILS ABSOLUTE AUTO 0.33 K/mm3 (0.00-0.68); EOSINOPHILS PERCENT AUTO 6 % (0-6); Hematocrit 31.7 % (37.0-53.0); Hemoglobin 10.4 g/dL (13.5-17.5); IMMATURE GRAN ABSOLUTE AUTO 0.02 K/mm3 (0.00-0.10); IMMATURE GRAN PERCENT AUTO 0 % (0-1); LYMPHOCYTES ABSOLUTE AUTO 1.29 K/mm3 (0.84-5.20); LYMPHOCYTES PERCENT AUTO 21 % (21-46); MONOCYTES ABSOLUTE AUTO 0.45 K/mm3 (0.16-1.47); MONOCYTES PERCENT AUTO 7 % (4-13); Mean Corpuscular HGB 26.7 pg (26.0-34.0); Mean Corpuscular HGB Conc 32.8 g/dL (31.5-36.5); Mean Corpuscular Volume 82 fL (80-100); Mean Platelet Volume 10.5 fL (9.1-12.4); NEUTROPHILS ABSOLUTE AUTO 3.89 K/mm3 (1.96-9.15); NEUTROPHILS PERCENT AUTO 64 % (41-73); Platelet Count 295 K/mm3 (150-400); RDW Coefficient Variation 12.1 % (11.7-14.2); RDW Standard Deviation 35.9 fL (35.1-46.3); Red Blood Cell Count 3.89 M/mm3 (4.30-5.90); White Blood Cell Count 6.05 K/mm3 (4.00-11.30)
[2018-07-13 06:16] LABS: Alanine Aminotransfer (ALT/SGP 21 U/L (12-78); Albumin, Blood 2.7 g/dL (3.4-5.0); Albumin/Globulin Ratio 0.6 (0.8-1.8); Alk Phos 94 U/L (50-136); Anion Gap 8 mmol/L (6-16); Aspartate Aminotrans (AST/SGOT 13 U/L (12-37); Bilirubin, Total 0.5 mg/dL (0.1-1.0); Blood Urea Nitrogen 20 mg/dL (8-24); Bun/Creatinine Ratio 17.7 (12.0-20.0); CHOL/HDL RATIO 4.4; CO2, Blood 26 mmol/L (21-32); Calcium, Blood 7.9 mg/dL (8.5-10.1); Chloride, Blood 101 mmol/L (98-108); Cholesterol 132 mg/dL (50-200); Creatinine, Blood 1.13 mg/dL (0.60-1.20); Globulin, Blood 4.2 g/dL (2.2-4.0); Glomerular Filtration Rate >60 (60-); Glucose, Blood 186 mg/dL (70-99); HDL Cholesterol 30 mg/dL (>39); LDL/HDL RATIO 2.8; Low Density Lipoprotein Chol 83 mg/dL (0-110); Potassium, Blood 4.5 mmol/L (3.5-5.5); Sodium, Blood 135 mmol/L (136-145); Total Protein, Blood 6.9 g/dL (6.4-8.2); Triglycerides 96 mg/dL (30-160); Very Low Density Lipoprot Chol 19 mg/dL (6-32)
--- NOTE | 2018-07-13 17:27 | NUR ---
PT. DISCHARGED HOME WITH ORDERS TO FOLLOW UP WITH PODIATRY AND PCP. HOME WITH SPOUSE.
== END 2018-07-13 17:26 | disposition home or self-care (01) | DRG 639 ==
LOC: ER 18:31 → ERHOLD 23:52 → SURS 23:52 → MEDS 23:52 → SURS 07-07 08:05 → MEDS 07-10 20:44
PROVIDERS: Emergency Medicine; Internal Medicine; Nurse Practitioner Acute Care; ADMIT Internal Medicine
DX: E11.621 Type 2 diabetes mellitus with foot ulcer (principal); I48.91 Unspecified atrial fibrillation; L97.519 Non-pressure chronic ulcer of other part of right foot with unspecified severity; L03.031 Cellulitis of right toe; E78.5 Hyperlipidemia, unspecified; I25.10 Atherosclerotic heart disease of native coronary artery without angina pectoris; F17.210 Nicotine dependence, cigarettes, uncomplicated; Z86.73 Personal history of transient ischemic attack (TIA), and cerebral infarction without residual deficits; I25.2 Old myocardial infarction; Z88.5 Allergy status to narcotic agent; Z88.0 Allergy status to penicillin; Z91.012 Allergy to eggs; Z91.011 Allergy to milk products; Z91.018 Allergy to other foods; Z79.84 Long term (current) use of oral hypoglycemic drugs
CPT/HCPCS: 36415; 70450; 73630; 73660; 73701; 80048; 80053; 80061; 80202; 83036; 85025; 85651; 86140; 87040; 87070; 87147; 87205; 96360; 96365; 96375; 96376; 99283-25; 99285-25; J1885; J3010; J3370; J7030; J7050; Q9967

== ENCOUNTER 2018-07-23 07:24 | Day surgery (SDC) | payer OTHER ==
[~2018-07-23] VITALS: Ht 180.3 cm; Wt 75.7 kg
[2018-07-23] MEDS ORDERED: NITR.4SL (07:55)
[2018-07-23] MEDS ORDERED: Prilosec Otc20 MG (07:56)
[2018-07-23] MEDS ORDERED: Percocet 5-3251 EACH (07:57)
--- NOTE | 2018-07-23 09:12 | NUR ---
07/23/18 0912 Ranjana Metcalf PT INTO RECLINER AT 0907, STEADY DURING TRANSFER. TOLERATING SMALL SIPS OF WATER AT THIS TIME. VSS. PT INQUISITIVE ABOUT HOME INSTRUCTIONS. QUESTIONS ANSWERED AT THIS TIME. EXPLAINED TO PT THAT WE WILL DISCUSS DC INSTRUCTIONS SOON. AT CHAIRSIDE, PT AND VERY TALKATIVE. CALL LIGHT IN REACH.
== END 2018-07-23 10:00 | disposition home or self-care (01) ==
LOC: ORSCSDS 07:24
PROVIDERS: Podiatrist Foot & Ankle Surgery
PROC: 0Y6X0Z0 Detachment at Right 5th Toe, Complete, Open Approach (ICD-10-PCS; principal; 2018-07-23 09:30)
DX: I96 Gangrene, not elsewhere classified (principal); L97.519 Non-pressure chronic ulcer of other part of right foot with unspecified severity; M86.171 Other acute osteomyelitis, right ankle and foot; I10 Essential (primary) hypertension; E11.9 Type 2 diabetes mellitus without complications; Z86.73 Personal history of transient ischemic attack (TIA), and cerebral infarction without residual deficits; I25.2 Old myocardial infarction; Z79.899 Other long term (current) drug therapy
CPT/HCPCS: 82947; 87071; 87075; 87147; 87205; 88305; 88311; J2250; J3010; J7120

== ENCOUNTER 2018-09-29 17:44 | Emergency (ER) | payer OTHER ==
[~2018-09-29] VITALS: Ht 180.3 cm; Wt 76.2 kg
[~2018-09-29 17:44] MED LIST changes: +NITR.4SL; +Percocet 5-3251 EACH; +Prilosec Otc20 MG
[2018-09-29 18:13] LABS: BASOPHILS ABSOLUTE AUTO 0.05 K/mm3 (0.00-0.23); BASOPHILS PERCENT AUTO 1 % (0-2); EOSINOPHILS ABSOLUTE AUTO 0.23 K/mm3 (0.00-0.68); EOSINOPHILS PERCENT AUTO 5 % (0-6); Hematocrit 37.2 % (37.0-53.0); Hemoglobin 12.5 g/dL (13.5-17.5); IMMATURE GRAN ABSOLUTE AUTO 0.01 K/mm3 (0.00-0.10); IMMATURE GRAN PERCENT AUTO 0 % (0-1); LYMPHOCYTES ABSOLUTE AUTO 1.32 K/mm3 (0.84-5.20); LYMPHOCYTES PERCENT AUTO 28 % (21-46); MONOCYTES ABSOLUTE AUTO 0.32 K/mm3 (0.16-1.47); MONOCYTES PERCENT AUTO 7 % (4-13); Mean Corpuscular HGB 27.2 pg (26.0-34.0); Mean Corpuscular HGB Conc 33.6 g/dL (31.5-36.5); Mean Corpuscular Volume 81 fL (80-100); Mean Platelet Volume 11.1 fL (9.1-12.4); NEUTROPHILS ABSOLUTE AUTO 2.77 K/mm3 (1.96-9.15); NEUTROPHILS PERCENT AUTO 59 % (41-73); Platelet Count 200 K/mm3 (150-400); RDW Coefficient Variation 13.8 % (11.7-14.2); RDW Standard Deviation 40.6 fL (35.1-46.3); Red Blood Cell Count 4.59 M/mm3 (4.30-5.90)
[2018-09-29 18:47] LABS: Alanine Aminotransfer (ALT/SGP 13 U/L (12-78); Albumin, Blood 3.7 g/dL (3.4-5.0); Alk Phos 54 U/L (50-136); Anion Gap 5 mmol/L (6-16); Aspartate Aminotrans (AST/SGOT 10 U/L (12-37); Bilirubin, Total 0.3 mg/dL (0.1-1.0); Blood Urea Nitrogen 25 mg/dL (8-24); Bun/Creatinine Ratio 20.3 (12.0-20.0); CO2, Blood 24 mmol/L (21-32); Calcium, Blood 8.4 mg/dL (8.5-10.1); Chloride, Blood 109 mmol/L (98-108); Creatinine, Blood 1.23 mg/dL (0.60-1.20); Globulin, Blood 3.7 g/dL (2.2-4.0); Glomerular Filtration Rate >60 (60-); Glucose, Blood 223 mg/dL (70-99); Potassium, Blood 4.1 mmol/L (3.5-5.5); Sodium, Blood 138 mmol/L (136-145); Total Protein, Blood 7.4 g/dL (6.4-8.2); Troponin I <0.015 ng/mL (0.000-0.040)
== END 2018-09-29 21:02 | disposition home or self-care (01) ==
LOC: ER 17:44
PROVIDERS: Physician Assistant
DX: R07.9 Chest pain, unspecified (principal); F17.210 Nicotine dependence, cigarettes, uncomplicated; Z88.0 Allergy status to penicillin; Z88.5 Allergy status to narcotic agent; Z91.011 Allergy to milk products; Z91.012 Allergy to eggs; Z79.899 Other long term (current) drug therapy; Z79.891 Long term (current) use of opiate analgesic; I25.10 Atherosclerotic heart disease of native coronary artery without angina pectoris; Z86.73 Personal history of transient ischemic attack (TIA), and cerebral infarction without residual deficits; E11.9 Type 2 diabetes mellitus without complications; I48.91 Unspecified atrial fibrillation
CPT/HCPCS: 36415; 71046; 80053; 84484; 85025; 93005; 93010; 99284-25

== ENCOUNTER 2018-12-02 21:55 | Emergency (ER) | payer OTHER ==
[~2018-12-02] VITALS: Ht 180.3 cm; Wt 78.0 kg
[2018-12-02 22:36] LABS: BASOPHILS ABSOLUTE AUTO 0.06 K/mm3 (0.00-0.23); BASOPHILS PERCENT AUTO 1 % (0-2); EOSINOPHILS ABSOLUTE AUTO 0.34 K/mm3 (0.00-0.68); EOSINOPHILS PERCENT AUTO 6 % (0-6); Hemoglobin 14.3 g/dL (13.5-17.5); IMMATURE GRAN ABSOLUTE AUTO 0.02 K/mm3 (0.00-0.10); IMMATURE GRAN PERCENT AUTO 0 % (0-1); LYMPHOCYTES ABSOLUTE AUTO 1.39 K/mm3 (0.84-5.20); LYMPHOCYTES PERCENT AUTO 24 % (21-46); MONOCYTES ABSOLUTE AUTO 0.46 K/mm3 (0.16-1.47); MONOCYTES PERCENT AUTO 8 % (4-13); Mean Corpuscular Volume 82 fL (80-100); Mean Platelet Volume 10.9 fL (9.1-12.4); NEUTROPHILS ABSOLUTE AUTO 3.59 K/mm3 (1.96-9.15); NEUTROPHILS PERCENT AUTO 61 % (41-73); Platelet Count 209 K/mm3 (150-400); RDW Coefficient Variation 13.4 % (11.7-14.2); RDW Standard Deviation 40.3 fL (35.1-46.3); White Blood Cell Count 5.86 K/mm3 (4.00-11.30)
[2018-12-02 23:02] LABS: Alanine Aminotransfer (ALT/SGP 16 U/L (12-78); Alk Phos 74 U/L (50-136); Anion Gap 7 mmol/L (6-16); Aspartate Aminotrans (AST/SGOT 11 U/L (12-37); Bilirubin, Total 0.6 mg/dL (0.1-1.0); Blood Urea Nitrogen 17 mg/dL (8-24); Bun/Creatinine Ratio 15.5 (12.0-20.0); CO2, Blood 27 mmol/L (21-32); Calcium, Blood 8.3 mg/dL (8.5-10.1); Chloride, Blood 103 mmol/L (98-108); Globulin, Blood 3.9 g/dL (2.2-4.0); Glomerular Filtration Rate >60 (60-); Glucose, Blood 184 mg/dL (70-99); Potassium, Blood 3.7 mmol/L (3.5-5.5); Sodium, Blood 137 mmol/L (136-145); Total Protein, Blood 7.9 g/dL (6.4-8.2); Troponin I <0.015 ng/mL (0.000-0.040)
[2018-12-03] MEDS ORDERED: ATOR40TA PO (00:01)
[2018-12-03] MEDS ORDERED: LO-DOSE ASPIRIN81 MG PO (00:01)
[2018-12-03] MEDS ORDERED: ATOR20 PO (00:01)
[2018-12-03] MEDS ORDERED: Isosorbide Dini30 MG PO (00:01)
== END 2018-12-03 02:11 | disposition home or self-care (01) ==
LOC: ER 21:55
PROVIDERS: Physician Assistant
DX: R07.9 Chest pain, unspecified (principal); Z86.73 Personal history of transient ischemic attack (TIA), and cerebral infarction without residual deficits; I25.2 Old myocardial infarction; E11.9 Type 2 diabetes mellitus without complications; I48.91 Unspecified atrial fibrillation; Z88.0 Allergy status to penicillin; Z88.5 Allergy status to narcotic agent; Z91.011 Allergy to milk products; Z91.012 Allergy to eggs; Z79.899 Other long term (current) drug therapy; Z79.891 Long term (current) use of opiate analgesic; F17.200 Nicotine dependence, unspecified, uncomplicated
CPT/HCPCS: 36415; 71046; 80053; 84484; 85025; 93005; 93010; 99285-25

== ENCOUNTER 2019-03-11 22:12 | Emergency (ER) | payer MEDICARE ==
[~2019-03-11] VITALS: Ht 180.3 cm; Wt 80.3 kg
[~2019-03-11 22:12] MED LIST changes: +ATOR40TA PO; +Isosorbide Dini30 MG PO; +LO-DOSE ASPIRIN81 MG PO
[2019-03-11] MEDS ORDERED: Cleocin HCl300 MG PO (23:02)
== END 2019-03-11 23:11 | disposition home or self-care (01) ==
LOC: ER 22:12
DX: K12.2 Cellulitis and abscess of mouth (principal); E11.9 Type 2 diabetes mellitus without complications; I48.91 Unspecified atrial fibrillation; Z87.442 Personal history of urinary calculi; F17.200 Nicotine dependence, unspecified, uncomplicated; I25.2 Old myocardial infarction; Z86.73 Personal history of transient ischemic attack (TIA), and cerebral infarction without residual deficits; Z88.0 Allergy status to penicillin; Z88.5 Allergy status to narcotic agent; Z91.012 Allergy to eggs; Z91.011 Allergy to milk products; Z91.018 Allergy to other foods; Z79.01 Long term (current) use of anticoagulants
CPT/HCPCS: 99282

== ENCOUNTER 2019-03-16 20:36 | Emergency (ER) | payer MEDICARE ==
[~2019-03-16] VITALS: Ht 180.3 cm; Wt 80.3 kg
[2019-03-16 21:13] LABS: BASOPHILS ABSOLUTE AUTO 0.04 K/mm3 (0.00-0.23); BASOPHILS PERCENT AUTO 1 % (0-2); EOSINOPHILS PERCENT AUTO 3 % (0-6); Hematocrit 46.4 % (37.0-53.0); Hemoglobin 15.5 g/dL (13.5-17.5); IMMATURE GRAN ABSOLUTE AUTO 0.02 K/mm3 (0.00-0.10); IMMATURE GRAN PERCENT AUTO 0 % (0-1); LYMPHOCYTES ABSOLUTE AUTO 1.22 K/mm3 (0.84-5.20); LYMPHOCYTES PERCENT AUTO 19 % (21-46); MONOCYTES ABSOLUTE AUTO 0.32 K/mm3 (0.16-1.47); MONOCYTES PERCENT AUTO 5 % (4-13); Mean Corpuscular HGB Conc 33.4 g/dL (31.5-36.5); Mean Corpuscular Volume 84 fL (80-100); NEUTROPHILS ABSOLUTE AUTO 4.71 K/mm3 (1.96-9.15); NEUTROPHILS PERCENT AUTO 72 % (41-73); Platelet Count 278 K/mm3 (150-400); RDW Coefficient Variation 12.3 % (11.7-14.2); RDW Standard Deviation 37.6 fL (35.1-46.3); Red Blood Cell Count 5.54 M/mm3 (4.30-5.90); White Blood Cell Count 6.51 K/mm3 (4.00-11.30)
[2019-03-16 21:31] LABS: Alanine Aminotransfer (ALT/SGP 14 U/L (12-78); Albumin, Blood 4.1 g/dL (3.4-5.0); Albumin/Globulin Ratio 0.9 (0.8-1.8); Alk Phos 76 U/L (50-136); Anion Gap 5 mmol/L (6-16); Aspartate Aminotrans (AST/SGOT 10 U/L (12-37); Bilirubin, Total 0.5 mg/dL (0.1-1.0); Blood Urea Nitrogen 17 mg/dL (8-24); Bun/Creatinine Ratio 14.2 (12.0-20.0); CO2, Blood 28 mmol/L (21-32); Calcium, Blood 9.2 mg/dL (8.5-10.1); Chloride, Blood 100 mmol/L (98-108); Globulin, Blood 4.6 g/dL (2.2-4.0); Glomerular Filtration Rate >60 (60-); Glucose, Blood 256 mg/dL (70-99); Potassium, Blood 4.6 mmol/L (3.5-5.5); Sodium, Blood 133 mmol/L (136-145); Total Protein, Blood 8.7 g/dL (6.4-8.2)
== END 2019-03-17 03:40 | disposition home or self-care (01) ==
LOC: ER 20:36
PROVIDERS: Physician Assistant
DX: K12.0 Recurrent oral aphthae (principal); E11.9 Type 2 diabetes mellitus without complications; I48.91 Unspecified atrial fibrillation; I25.2 Old myocardial infarction; F17.210 Nicotine dependence, cigarettes, uncomplicated; Z87.442 Personal history of urinary calculi; Z88.0 Allergy status to penicillin; Z88.5 Allergy status to narcotic agent; Z88.1 Allergy status to other antibiotic agents; Z91.018 Allergy to other foods; Z91.012 Allergy to eggs; Z91.011 Allergy to milk products; Z79.01 Long term (current) use of anticoagulants
CPT/HCPCS: 36415; 80053; 85025; 99283

== ENCOUNTER 2019-05-09 11:53 | Emergency (ER) | payer MEDICARE ==
[~2019-05-09] VITALS: Ht 180.3 cm; Wt 77.1 kg
[2019-05-09 12:34] LABS: BASOPHILS ABSOLUTE AUTO 0.05 K/mm3 (0.00-0.23); BASOPHILS PERCENT AUTO 1 % (0-2); EOSINOPHILS PERCENT AUTO 1 % (0-6); Hematocrit 42.8 % (37.0-53.0); Hemoglobin 14.3 g/dL (13.5-17.5); IMMATURE GRAN ABSOLUTE AUTO 0.03 K/mm3 (0.00-0.10); IMMATURE GRAN PERCENT AUTO 0 % (0-1); LYMPHOCYTES ABSOLUTE AUTO 1.33 K/mm3 (0.84-5.20); LYMPHOCYTES PERCENT AUTO 16 % (21-46); MONOCYTES ABSOLUTE AUTO 0.44 K/mm3 (0.16-1.47); MONOCYTES PERCENT AUTO 5 % (4-13); Mean Corpuscular HGB 28.2 pg (26.0-34.0); Mean Corpuscular HGB Conc 33.4 g/dL (31.5-36.5); Mean Corpuscular Volume 84 fL (80-100); Mean Platelet Volume 10.7 fL (9.1-12.4); NEUTROPHILS ABSOLUTE AUTO 6.16 K/mm3 (1.96-9.15); NEUTROPHILS PERCENT AUTO 76 % (41-73); Platelet Count 242 K/mm3 (150-400); RDW Coefficient Variation 13.2 % (11.7-14.2); RDW Standard Deviation 40.3 fL (35.1-46.3); Red Blood Cell Count 5.07 M/mm3 (4.30-5.90); White Blood Cell Count 8.11 K/mm3 (4.00-11.30)
[2019-05-09 12:53] LABS: Alanine Aminotransfer (ALT/SGP 16 U/L (12-78); Albumin, Blood 3.8 g/dL (3.4-5.0); Albumin/Globulin Ratio 0.9 (0.8-1.8); Alk Phos 69 U/L (50-136); Anion Gap 8 mmol/L (6-16); Aspartate Aminotrans (AST/SGOT 8 U/L (12-37); Bilirubin, Total 0.4 mg/dL (0.1-1.0); Blood Urea Nitrogen 22 mg/dL (8-24); Bun/Creatinine Ratio 20.6 (12.0-20.0); CO2, Blood 26 mmol/L (21-32); Calcium, Blood 8.8 mg/dL (8.5-10.1); Chloride, Blood 100 mmol/L (98-108); Creatinine, Blood 1.07 mg/dL (0.60-1.20); Globulin, Blood 4.1 g/dL (2.2-4.0); Glomerular Filtration Rate >60 (60-); Glucose, Blood 306 mg/dL (70-99); Potassium, Blood 4.5 mmol/L (3.5-5.5); Sodium, Blood 134 mmol/L (136-145); Total Protein, Blood 7.9 g/dL (6.4-8.2); Troponin I <0.015 ng/mL (0.000-0.040)
[2019-05-09 14:23] LABS: Source, Urine Clean Catch
[2019-05-09 15:01] LABS: Appearance, Urine Clear (Clear); Bilirubin, Urine Neg (Neg); Blood, Urine Neg (Neg); Color, Urine Yellow (P-Yellow); Glucose Qualitative, Urine 4+ (Neg); Ketones, Urine Neg (Neg); Leukocyte Esterase, Urine Neg (Neg); Nitrite, Urine Neg (Neg); Protein, Urine 2+ (Neg); Specific Gravity, Urine 1.025 (1.003-1.022); Urobilinogen, Urine NORM (Normal)
[2019-05-09 15:28] LABS: Bacteria Few /hpf; Red Blood Cells, Urine 0-2 /hpf (0-2); Squamous Epithelial Cells Few /hpf (Few); White Blood Cells, Urine 0-2 /hpf (0-5)
== END 2019-05-09 15:36 | disposition home or self-care (01) ==
LOC: ER 11:53
PROVIDERS: Physician Assistant
DX: E11.65 Type 2 diabetes mellitus with hyperglycemia (principal); I25.2 Old myocardial infarction; E78.00 Pure hypercholesterolemia, unspecified; F17.210 Nicotine dependence, cigarettes, uncomplicated; Z88.0 Allergy status to penicillin; Z88.5 Allergy status to narcotic agent; Z91.011 Allergy to milk products; Z91.018 Allergy to other foods; Z91.012 Allergy to eggs; Z79.01 Long term (current) use of anticoagulants; Z87.442 Personal history of urinary calculi; Z86.73 Personal history of transient ischemic attack (TIA), and cerebral infarction without residual deficits
CPT/HCPCS: 36415; 70450; 71046; 80053; 81001; 84484; 85025; 93005; 93010; 99284-25

== ENCOUNTER 2019-06-01 09:24 | Emergency (ER) | payer MEDICARE ==
[~2019-06-01] VITALS: Ht 180.3 cm; Wt 72.6 kg
[2019-06-01] MEDS ORDERED: Zithromax250 MG PO (10:04)
[2019-06-01] MEDS ORDERED: ALBU90OI INH (10:04)
[2019-06-01] MEDS ORDERED: Mucinex600 MG PO (10:04)
== END 2019-06-01 10:27 | disposition home or self-care (01) ==
LOC: ER 09:24
DX: J44.1 Chronic obstructive pulmonary disease with (acute) exacerbation (principal); I25.10 Atherosclerotic heart disease of native coronary artery without angina pectoris; E11.9 Type 2 diabetes mellitus without complications; I25.2 Old myocardial infarction; F17.210 Nicotine dependence, cigarettes, uncomplicated; Z91.14 Patient's other noncompliance with medication regimen; Z88.0 Allergy status to penicillin; Z88.5 Allergy status to narcotic agent; Z91.011 Allergy to milk products; Z91.018 Allergy to other foods; Z91.012 Allergy to eggs; Z79.01 Long term (current) use of anticoagulants; Z86.73 Personal history of transient ischemic attack (TIA), and cerebral infarction without residual deficits
CPT/HCPCS: 94640; 99283-25

== ENCOUNTER 2019-07-14 12:30 | Emergency (ER) | payer MEDICARE, OTHER ==
[~2019-07-14] VITALS: Ht 180.3 cm; Wt 77.6 kg
[~2019-07-14 12:30] MED LIST changes: +ALBU90OI INH; +Mucinex600 MG PO; +Zithromax250 MG PO
[2019-07-14 13:23] LABS: BASOPHILS ABSOLUTE AUTO 0.07 K/mm3 (0.00-0.23); BASOPHILS PERCENT AUTO 1 % (0-2); EOSINOPHILS ABSOLUTE AUTO 0.19 K/mm3 (0.00-0.68); EOSINOPHILS PERCENT AUTO 3 % (0-6); Hematocrit 41.5 % (37.0-53.0); Hemoglobin 14.1 g/dL (13.5-17.5); IMMATURE GRAN ABSOLUTE AUTO 0.02 K/mm3 (0.00-0.10); IMMATURE GRAN PERCENT AUTO 0 % (0-1); LYMPHOCYTES ABSOLUTE AUTO 0.99 K/mm3 (0.84-5.20); LYMPHOCYTES PERCENT AUTO 17 % (21-46); MONOCYTES ABSOLUTE AUTO 0.29 K/mm3 (0.16-1.47); MONOCYTES PERCENT AUTO 5 % (4-13); Mean Corpuscular HGB 28.5 pg (26.0-34.0); Mean Corpuscular Volume 84 fL (80-100); Mean Platelet Volume 11.5 fL (9.1-12.4); NEUTROPHILS PERCENT AUTO 74 % (41-73); Platelet Count 229 K/mm3 (150-400); RDW Coefficient Variation 12.7 % (11.7-14.2); RDW Standard Deviation 38.6 fL (35.1-46.3); Red Blood Cell Count 4.94 M/mm3 (4.30-5.90); White Blood Cell Count 5.86 K/mm3 (4.00-11.30)
[2019-07-14 13:52] LABS: Alanine Aminotransfer (ALT/SGP 15 U/L (12-78); Albumin, Blood 3.7 g/dL (3.4-5.0); Anion Gap 8 mmol/L (6-16); Blood Urea Nitrogen 23 mg/dL (8-24); CO2, Blood 23 mmol/L (21-32); Chloride, Blood 101 mmol/L (98-108); Glucose, Blood 434 mg/dL (70-99); Potassium, Blood 4.5 mmol/L (3.5-5.5); Sodium, Blood 132 mmol/L (136-145)
[2019-07-14 13:59] LABS: Alk Phos 63 U/L (50-136); Aspartate Aminotrans (AST/SGOT 10 U/L (12-37); Bilirubin, Total 0.2 mg/dL (0.1-1.0); Bun/Creatinine Ratio 23.9 (12.0-20.0); Calcium, Blood 8.5 mg/dL (8.5-10.1); Creatinine, Blood 0.96 mg/dL (0.60-1.20); Globulin, Blood 3.7 g/dL (2.2-4.0); Glomerular Filtration Rate >60 (60-); Total Protein, Blood 7.4 g/dL (6.4-8.2); Troponin I <0.015 ng/mL (0.000-0.040)
== END 2019-07-14 18:21 | disposition home or self-care (01) ==
LOC: ER 12:30
PROVIDERS: Physician Assistant
DX: R07.9 Chest pain, unspecified (principal); E11.65 Type 2 diabetes mellitus with hyperglycemia; I25.2 Old myocardial infarction; I48.91 Unspecified atrial fibrillation; F17.210 Nicotine dependence, cigarettes, uncomplicated; Z88.0 Allergy status to penicillin; Z88.5 Allergy status to narcotic agent; Z91.018 Allergy to other foods; Z91.011 Allergy to milk products; Z91.012 Allergy to eggs; Z86.73 Personal history of transient ischemic attack (TIA), and cerebral infarction without residual deficits
CPT/HCPCS: 36415; 71046; 80053; 83880; 84484; 85025; 93005; 93010; 96374; 99285-25; J1885

== ENCOUNTER 2020-01-17 06:03 | Day surgery (SDC) | payer MEDICARE, OTHER ==
[~2020-01-17] VITALS: Ht 177.8 cm; Wt 71.0 kg
[~2020-01-17 06:03] MED LIST changes: +Aspir 8181 MG PO; +CARB200ER PO; +RANO500T PO; +TRIA15CR3 TOP
--- NOTE | 2020-01-17 09:37 | NUR ---
PT VERBALIZED UNDERSTANDING OF D/C INSTRUCTIONS. PAPERWORK PROVIDED IN FOLDER. RIGHT RADIAL ARTERIAL SITE APPEARS SOFT NON TENDER WITH NO ACTIVE BLEEDING, OOZING, OR PAIN. TR BAND REMOVED, RED CLOTH DOT DRESSING APPLIED. ARM BOARD ON FOR SUPPORT. IV REMOVED FROM RAC WITH CATH INTACT, PRESSURE DRESSING APPLIED. PT ABLE TO GET DRESSED WITH NO NEEDED ASSISTANCE. HERE TO DRIVE PT HOME. DENIES NEED FOR W/C RIDE TO VEHICLE. VSS. ENCOURAGED TO FOLLOW UP WITH PROVIDER SCHEDULED.
== END 2020-01-17 09:30 | disposition home or self-care (01) ==
LOC: MHTC 06:03
PROC: B201YZZ Plain Radiography of Multiple Coronary Arteries using Other Contrast (ICD-10-PCS; principal; 2020-01-17)
PROC: 4A023N7 Measurement of Cardiac Sampling and Pressure, Left Heart, Percutaneous Approach (ICD-10-PCS; principal; 2020-01-17)
DX: I25.119 Atherosclerotic heart disease of native coronary artery with unspecified angina pectoris (principal); E78.00 Pure hypercholesterolemia, unspecified; E78.5 Hyperlipidemia, unspecified; J44.9 Chronic obstructive pulmonary disease, unspecified; I48.91 Unspecified atrial fibrillation; F17.210 Nicotine dependence, cigarettes, uncomplicated; E11.9 Type 2 diabetes mellitus without complications; Z79.84 Long term (current) use of oral hypoglycemic drugs; Z88.0 Allergy status to penicillin; Z88.5 Allergy status to narcotic agent; Z91.030 Bee allergy status; Z91.012 Allergy to eggs; Z91.018 Allergy to other foods; Z79.82 Long term (current) use of aspirin
CPT/HCPCS: 93454; 99152; 99153; C1769; C1894; J1644; J2250; J3010; J7030; Q9967

== ENCOUNTER 2020-10-23 03:23 | Day surgery (SDC) | payer MEDICARE, OTHER | END 2020-10-23 23:04 | disposition home or self-care (01) | LOC: WOUND 03:23 | DX: E11.621 Type 2 diabetes mellitus with foot ulcer (principal); L97.422 Non-pressure chronic ulcer of left heel and midfoot with fat layer exposed; L97.412 Non-pressure chronic ulcer of right heel and midfoot with fat layer exposed; E11.59 Type 2 diabetes mellitus with other circulatory complications; S91.301S Unspecified open wound, right foot, sequela; S91.302S Unspecified open wound, left foot, sequela; X58.XXXS Exposure to other specified factors, sequela; E11.40 Type 2 diabetes mellitus with diabetic neuropathy, unspecified; E11.65 Type 2 diabetes mellitus with hyperglycemia; F17.210 Nicotine dependence, cigarettes, uncomplicated; Z88.0 Allergy status to penicillin; Z88.5 Allergy status to narcotic agent; Z91.011 Allergy to milk products; Z91.012 Allergy to eggs | CPT/HCPCS: 36415; 80053; 83036; 84134; 85025; G0463 ==

== ENCOUNTER 2020-10-29 08:10 | Day surgery (SDC) | payer MEDICARE, OTHER | END 2020-10-29 22:58 | disposition home or self-care (01) | LOC: WOUND 08:10 | DX: E11.621 Type 2 diabetes mellitus with foot ulcer (principal); L97.422 Non-pressure chronic ulcer of left heel and midfoot with fat layer exposed; L97.412 Non-pressure chronic ulcer of right heel and midfoot with fat layer exposed; E11.59 Type 2 diabetes mellitus with other circulatory complications; I48.91 Unspecified atrial fibrillation; F17.210 Nicotine dependence, cigarettes, uncomplicated; I25.2 Old myocardial infarction; E08.65 Diabetes mellitus due to underlying condition with hyperglycemia; E08.40 Diabetes mellitus due to underlying condition with diabetic neuropathy, unspecified; Z79.01 Long term (current) use of anticoagulants; Z86.73 Personal history of transient ischemic attack (TIA), and cerebral infarction without residual deficits; Z88.6 Allergy status to analgesic agent; Z91.012 Allergy to eggs; Z88.0 Allergy status to penicillin; Z91.018 Allergy to other foods | CPT/HCPCS: A9270 ==

== ENCOUNTER 2020-11-06 04:44 | Day surgery (SDC) | payer MEDICARE, OTHER | END 2020-11-06 23:41 | disposition home or self-care (01) | LOC: WOUND 04:44 | DX: E11.621 Type 2 diabetes mellitus with foot ulcer (principal); L97.422 Non-pressure chronic ulcer of left heel and midfoot with fat layer exposed; L97.412 Non-pressure chronic ulcer of right heel and midfoot with fat layer exposed; E11.59 Type 2 diabetes mellitus with other circulatory complications; S91.301D Unspecified open wound, right foot, subsequent encounter; S91.302D Unspecified open wound, left foot, subsequent encounter; X58.XXXD Exposure to other specified factors, subsequent encounter; E11.65 Type 2 diabetes mellitus with hyperglycemia; E11.40 Type 2 diabetes mellitus with diabetic neuropathy, unspecified; F17.210 Nicotine dependence, cigarettes, uncomplicated; I48.91 Unspecified atrial fibrillation; Z79.01 Long term (current) use of anticoagulants | CPT/HCPCS: A9270 ==

== ENCOUNTER 2020-11-13 02:09 | Day surgery (SDC) | payer MEDICARE, OTHER | END 2020-11-13 22:49 | disposition home or self-care (01) | LOC: WOUND 02:09 | DX: E11.621 Type 2 diabetes mellitus with foot ulcer (principal); L97.422 Non-pressure chronic ulcer of left heel and midfoot with fat layer exposed; L97.419 Non-pressure chronic ulcer of right heel and midfoot with unspecified severity; E11.59 Type 2 diabetes mellitus with other circulatory complications; S91.301D Unspecified open wound, right foot, subsequent encounter; S91.302D Unspecified open wound, left foot, subsequent encounter; X58.XXXD Exposure to other specified factors, subsequent encounter; E11.65 Type 2 diabetes mellitus with hyperglycemia; E11.40 Type 2 diabetes mellitus with diabetic neuropathy, unspecified | CPT/HCPCS: G0463 ==

== ENCOUNTER 2020-11-19 00:18 | Day surgery (SDC) | payer MEDICARE, OTHER | END 2020-11-19 23:13 | disposition home or self-care (01) | LOC: WOUND 00:18 | DX: E11.621 Type 2 diabetes mellitus with foot ulcer (principal); L97.422 Non-pressure chronic ulcer of left heel and midfoot with fat layer exposed; F17.210 Nicotine dependence, cigarettes, uncomplicated; I25.2 Old myocardial infarction; E11.59 Type 2 diabetes mellitus with other circulatory complications; E08.65 Diabetes mellitus due to underlying condition with hyperglycemia; E08.40 Diabetes mellitus due to underlying condition with diabetic neuropathy, unspecified; I48.91 Unspecified atrial fibrillation; Z79.01 Long term (current) use of anticoagulants; Z86.73 Personal history of transient ischemic attack (TIA), and cerebral infarction without residual deficits | CPT/HCPCS: A9270 ==

== ENCOUNTER 2020-11-26 00:33 | Day surgery (SDC) | payer MEDICARE, OTHER | END 2020-11-27 02:19 | disposition home or self-care (01) | LOC: WOUND 00:33 | DX: E11.621 Type 2 diabetes mellitus with foot ulcer (principal); L97.422 Non-pressure chronic ulcer of left heel and midfoot with fat layer exposed; E11.59 Type 2 diabetes mellitus with other circulatory complications; S91.301D Unspecified open wound, right foot, subsequent encounter; X58.XXXD Exposure to other specified factors, subsequent encounter; E11.65 Type 2 diabetes mellitus with hyperglycemia; E11.40 Type 2 diabetes mellitus with diabetic neuropathy, unspecified | CPT/HCPCS: A9270 ==

== ENCOUNTER 2020-12-03 00:29 | Day surgery (SDC) | payer MEDICARE, OTHER | END 2020-12-03 23:33 | disposition home or self-care (01) | LOC: WOUND 00:29 | DX: Z09 Encounter for follow-up examination after completed treatment for conditions other than malignant neoplasm (principal); E11.59 Type 2 diabetes mellitus with other circulatory complications; E08.65 Diabetes mellitus due to underlying condition with hyperglycemia; E08.40 Diabetes mellitus due to underlying condition with diabetic neuropathy, unspecified; I25.2 Old myocardial infarction; F17.210 Nicotine dependence, cigarettes, uncomplicated; I48.91 Unspecified atrial fibrillation; Z86.73 Personal history of transient ischemic attack (TIA), and cerebral infarction without residual deficits; Z79.01 Long term (current) use of anticoagulants; Z88.0 Allergy status to penicillin; Z91.012 Allergy to eggs; Z91.011 Allergy to milk products; Z88.5 Allergy status to narcotic agent; Z91.018 Allergy to other foods | CPT/HCPCS: A9270; G0463 ==

== ENCOUNTER 2023-02-02 01:29 | Day surgery (SDC) | payer MEDICARE, OTHER ==
[~2023-02-02 01:29] MED LIST changes: +BASAGLAR K100 UNIT/3 SC; +CLIN150 PO; +FERSU300 PO; +LACT PO; +OMEP20ER PO
== END 2023-02-02 22:52 | disposition home or self-care (01) ==
LOC: WOUND 01:29
DX: S98.212 Complete traumatic amputation of two or more left lesser toes (principal); X58.XXXS Exposure to other specified factors, sequela; E11.621 Type 2 diabetes mellitus with foot ulcer; F17.210 Nicotine dependence, cigarettes, uncomplicated; I48.91 Unspecified atrial fibrillation; Z88.0 Allergy status to penicillin; Z79.01 Long term (current) use of anticoagulants
CPT/HCPCS: G0463

== ENCOUNTER 2023-02-11 02:12 | Day surgery (SDC) | payer MEDICARE, OTHER | END 2023-02-11 22:58 | disposition home or self-care (01) | LOC: WOUND 02:12 | DX: T81.31XA Disruption of external operation (surgical) wound, not elsewhere classified, initial encounter (principal); E11.621 Type 2 diabetes mellitus with foot ulcer; E11.42 Type 2 diabetes mellitus with diabetic polyneuropathy; I25.2 Old myocardial infarction; F17.210 Nicotine dependence, cigarettes, uncomplicated; I48.91 Unspecified atrial fibrillation; Z79.01 Long term (current) use of anticoagulants; Z89.422 Acquired absence of other left toe(s); Y83.8 Other surgical procedures as the cause of abnormal reaction of the patient, or of later complication, without mention of misadventure at the time of the procedure | CPT/HCPCS: A9270; G0463 ==

== ENCOUNTER 2023-02-11 13:53 | Inpatient (IN) | payer MEDICARE ==
[~2023-02-11] VITALS: Ht 180.3 cm; Wt 70.3 kg
[2023-02-11 14:35] LABS: BASOPHILS ABSOLUTE AUTO 0.04 K/mm3 (0.00-0.23); BASOPHILS PERCENT AUTO 0 % (0-2); EOSINOPHILS ABSOLUTE AUTO 0.08 K/mm3 (0.00-0.68); EOSINOPHILS PERCENT AUTO 1 % (0-6); Hematocrit 27.9 % (37.0-53.0); Hemoglobin 8.9 g/dL (13.5-17.5); IMMATURE GRAN ABSOLUTE AUTO 0.04 K/mm3 (0.00-0.10); IMMATURE GRAN PERCENT AUTO 0 % (0-1); LYMPHOCYTES ABSOLUTE AUTO 0.95 K/mm3 (0.84-5.20); LYMPHOCYTES PERCENT AUTO 8 % (21-46); MONOCYTES ABSOLUTE AUTO 0.56 K/mm3 (0.16-1.47); MONOCYTES PERCENT AUTO 5 % (4-13); Mean Corpuscular HGB 23.1 pg (26.0-34.0); Mean Corpuscular HGB Conc 31.9 g/dL (31.5-36.5); Mean Corpuscular Volume 72 fL (80-100); Mean Platelet Volume 10.4 fL (9.1-12.4); NEUTROPHILS ABSOLUTE AUTO 10.51 K/mm3 (1.96-9.15); NEUTROPHILS PERCENT AUTO 86 % (41-73); Platelet Count 498 K/mm3 (150-400); RDW Coefficient Variation 16.8 % (11.7-14.2); RDW Standard Deviation 44.1 fL (35.1-46.3); Red Blood Cell Count 3.86 M/mm3 (4.30-5.90); White Blood Cell Count 12.18 K/mm3 (4.00-11.30)
[2023-02-11 15:03] LABS: Albumin, Blood 2.7 g/dL (3.4-5.0); Albumin/Globulin Ratio 0.5 (0.8-1.8); Bilirubin, Total 0.4 mg/dL (0.1-1.0); Bun/Creatinine Ratio 16.8 (12.0-20.0); Calcium, Blood 8.6 mg/dL (8.5-10.1); Creatinine, Blood 1.25 mg/dL (0.60-1.20); Globulin, Blood 5.3 g/dL (2.2-4.0); Potassium, Blood 4.4 mmol/L (3.5-5.5)
--- NOTE | 2023-02-11 20:30 | NUR ---
ADMIT NOTE; PT ARRIVES FROM THE ED VIA GURNEY. THE PT IS AXO X4 AND ABLE TO SELF TRANSFER TO THE BED FROM THE ED GURNEY. THE PT HAS A L FOREFOOT WOUND, IT IS CURRENTLY DRESSED. PICTURES OF THE WOUND WERE NOT OBTAINED AT THIS TIME. THE PT IS ABLE TO BARE WEIGHT ON THE L FOOT, WITH MINIMAL PAIN. THE PT ARRIVES W/ NS RUNNING TO GRAVITY AND VANCO INFUSING. THE PT DENIES ANY ACUTE NEEDS AT THIS TIME. THE PT IS ABLE TO REST INTO BED WITH THE BED IN THE LOWEST POSITION AND THE CALL LIGHT AT BEDSIDE. THE PT WAS MADE AWARE THAT HE WILL BE NPO AT 2359 TONIGHT AND HE WAS ORIENTATED TO THE ROOM. PT EDUCATED ON [employer] [facility], WELL WHAT POSSIBLE IGNITION SOURCES. PT DENIES HAVING ANY POSSIBLE IGNITION SOURCES AT THIS TIME.
[2023-02-11 20:35] VITALS: BP 141/74
[2023-02-12] VITALS (9 sets, daily range): BP systolic 125–172; BP diastolic 71–89
--- NOTE | 2023-02-12 01:10 | NUR ---
ATTEMPTED TO CALL IN CONSULT TO DR. MARSHALL, DR. MARSHALL DOES NOT HAVE A ANSWERING SERVICE AND THE OFFICE DOES NOT OPEN TILL 0800. WILL RELAY TO DAYSHIFT RN O CALL IN CONSULT TO DR. MARSHALL OFFICE AT 0800.
--- NOTE | 2023-02-12 04:37 | NUR ---
SHIFT SUMMARY; NO ACUTE CHANGES SINCE ADMIT. THE PT IS AXO X4 AND INDEPENDENT. HOWEVER, THE PT HAS BEEN USING THE URINAL IN BED FOR THE DURATION OF THE NIGHT.THE PTS IS AT BEDSIDE, PT STATES HE "NEEDS HER FOR SUPPORT SINCE HE IS LIKELY GETTING SURGERY IN THE MORNING". THE PT HAS BEEN NPO SINCE MIDNIGHT IN PREPERATION FOR A PODIATRY CONSULT TODAY. I ATTEMPTED TO CALL IN A CONSULT W/ DR. MARSHALL BUT HE DOES NOT HAVE A ANSWERING SERVICE AND OFFICE HOURS DO NOT START UNTIL 0800. WILL RELAY TO DAYSHIFT RN TO CALL DR. MARSHALL OFFICE IN AM. THE PT HAS NS RUNNING AT 125MLS/HR. THE PT HAS TELE IN PLACE-A-FIB IN THE 'S. THE PT IS Q6 BS'S WHILE NPO, THE PT DOES NOT LIKE THAT WE ARE CHECKING HIS BS THAT OFTEN. THE PTS L FOOT IS WRAPPED IN A BANDAGE AND HAS BEEN SINCE ADMIT, THEREFORE THERE ARE NO PICTURE OF THE WOUND IN THE PTS CHART. THE PT DENIES ANY SOB, CHEST PAIN/PRESSURE, PAIN OR N/V THIS SHIFT. THE PT IS ANXIOUS AND UNABLE TO SLEEP THIS SHIFT R/T TO BEING NERVOUS ABOUT WHAT IS TO COME IN RELATION TO HIS FOOT. CURRENTLY THE PT IS LAYING IN BED WITH THE BED IN THE LOWEST POSITION AND THE CALL LIGHT AT BEDSIDE. FIRE SAFETY MAINTAINED T/O THE SHIFT.
[2023-02-12 05:43] LABS: BASOPHILS ABSOLUTE AUTO 0.06 K/mm3 (0.00-0.23); BASOPHILS PERCENT AUTO 1 % (0-2); EOSINOPHILS ABSOLUTE AUTO 0.12 K/mm3 (0.00-0.68); EOSINOPHILS PERCENT AUTO 2 % (0-6); Hematocrit 21.8 % (37.0-53.0); Hemoglobin 6.8 g/dL (13.5-17.5); IMMATURE GRAN ABSOLUTE AUTO 0.03 K/mm3 (0.00-0.10); IMMATURE GRAN PERCENT AUTO 0 % (0-1); LYMPHOCYTES ABSOLUTE AUTO 0.85 K/mm3 (0.84-5.20); LYMPHOCYTES PERCENT AUTO 10 % (21-46); MONOCYTES ABSOLUTE AUTO 0.56 K/mm3 (0.16-1.47); MONOCYTES PERCENT AUTO 7 % (4-13); Mean Corpuscular HGB 22.4 pg (26.0-34.0); Mean Corpuscular HGB Conc 31.2 g/dL (31.5-36.5); Mean Corpuscular Volume 72 fL (80-100); Mean Platelet Volume 10.4 fL (9.1-12.4); NEUTROPHILS ABSOLUTE AUTO 6.62 K/mm3 (1.96-9.15); NEUTROPHILS PERCENT AUTO 80 % (41-73); Platelet Count 379 K/mm3 (150-400); RDW Coefficient Variation 16.8 % (11.7-14.2); RDW Standard Deviation 43.7 fL (35.1-46.3); Red Blood Cell Count 3.04 M/mm3 (4.30-5.90); White Blood Cell Count 8.24 K/mm3 (4.00-11.30)
[2023-02-12 05:56] LABS: International Normalized Ratio 1.05
[2023-02-12 06:34] LABS: Albumin/Globulin Ratio 0.5 (0.8-1.8); Bilirubin, Total 0.3 mg/dL (0.1-1.0); Bun/Creatinine Ratio 17.8 (12.0-20.0); Calcium, Blood 7.8 mg/dL (8.5-10.1); Creatinine, Blood 1.07 mg/dL (0.60-1.20); Globulin, Blood 3.9 g/dL (2.2-4.0)
[2023-02-12 06:37] LABS: Total Protein, Blood 5.9 g/dL (6.4-8.2)
--- NOTE | 2023-02-12 09:00 | NUR ---
pt laying in bed, at bedside, pt told this nurse to shut the d... door, asked pt no need to swear at staff, just ask and will do everything we can to accomidate, asked for second iv as he needs a transfusion, called in consult to Dr. Freeman office and asked that they call me back and let me know if he will have surg today, or can order diet, explained this to the pt., lungs are clear t/o, on r/a, resp even and unlabored, no cough noted, hrirr, tele in place running afib per monitor, see strip, no edema noted, wound to left foot, dressing in place, iv to lac site is clear and patent, infusing ns as ordered, btx4, abd flat soft nontender, voids without diff, nic marsh, call light in reach.
--- NOTE | 2023-02-12 19:34 | NUR ---
pt is more cooperative this evening, Dr. Freeman in to see pt, will take him to surg tomorrow, will keep npo after mid, telephone service adviser called several times regarding heart rate dropping to the 30's for 4 to 5 beats, he was sleeping heavily at the time, and may have been having apnic episodes, Dr. Cai was notified, pt recieved one unit of prbc's this shift, no further changes this shift. call light in reach.
[2023-02-13] VITALS (21 sets, daily range): BP systolic 103–159; BP diastolic 60–100
--- NOTE | 2023-02-13 04:14 | NUR ---
SHIFT SUMMARY 68 YR M ADMITTED ON 02/11/23 FOR OSTEOMYLITIS OF LEFT FOOT. FULL CODE. NO ACUTE CHANGES THIS SHIFT. PT HAS BEEN PLEASANT AND COOPERATIVE THIS SHIFT. NO TELE EVENTS REPORTED. HE HAS BEEN NPO SINCE MIDNIGHT IN ANTICIPATION OF SURGERY ON HIS FOOT TODAY. HE STANDS INDEPENDANTLY AT BEDSIDE TO USE THE URINAL. CALLS APPROPRIATELY. BED IN LOW POSITION AND CALL LIGHT IN REACH.
[2023-02-13 05:41] LABS: Hematocrit 24.8 % (37.0-53.0); Mean Corpuscular HGB 23.2 pg (26.0-34.0); Mean Corpuscular HGB Conc 32.3 g/dL (31.5-36.5); Mean Corpuscular Volume 72 fL (80-100); Mean Platelet Volume 10.2 fL (9.1-12.4); Platelet Count 403 K/mm3 (150-400); RDW Coefficient Variation 16.5 % (11.7-14.2); Red Blood Cell Count 3.45 M/mm3 (4.30-5.90); White Blood Cell Count 7.86 K/mm3 (4.00-11.30)
[2023-02-13 06:17] LABS: Anion Gap 7 mmol/L (6-16); Blood Urea Nitrogen 15 mg/dL (8-24); CO2, Blood 22 mmol/L (21-32); Chloride, Blood 106 mmol/L (98-108); Creatinine, Blood 1.15 mg/dL (0.60-1.20); Glomerular Filtration Rate 69 (60-); Glucose, Blood 139 mg/dL (70-99); Magnesium, Blood 1.9 mg/dL (1.6-2.4); Phosphorus, Blood 3.4 mg/dL (2.5-4.9); Sodium, Blood 135 mmol/L (136-145)
[2023-02-13 06:19] LABS: Vancomycin, Trough 20.3 ug/mL (5.0-10.0)
--- NOTE | 2023-02-13 10:18 | NUR ---
PT HAS 20G IV IN L HAND THAT IS CURRENTLY INFUSING ANTIBIOTICS AND LR. IV SITE SHOWS NO SIGNS OF INFILTRATION, NO DRAINAGE, NO SWELLING, NO INFLAMMATION.
--- NOTE | 2023-02-13 16:53 | NUR ---
DAYSHIFT SUMMARY Patient alert & oriented x4. Patient had a procedure this AM, I&D of left foot/stump. IV ABX administred. S/p patient doing well pain under control, but he did become nausous with food, 1 episode of emesis noted. Vitals stable, CBG WNL. Left foot dressing CDI & wrapped with MARIBEL banadge. Will continue plan of care.
[2023-02-14 00:04] VITALS: BP 157/83
--- NOTE | 2023-02-14 04:21 | NUR ---
SHIFT SUMMARY- PT ALERT AND ORIENTED, FAIRLY TALKATIVE AND PLEASENT WITH STAFF. PT HAS HAD NO ACUTE CHANGES T/O THE NIGHT. DENIES ANY NEED FOR PAIN MEDICATION POST OP.DRESSING TO THE LLE IS IN TACT. VSS.
[2023-02-14 04:36] VITALS: BP 130/77
[2023-02-14 05:10] LABS: Hematocrit 27.6 % (37.0-53.0); Hemoglobin 8.9 g/dL (13.5-17.5); Mean Corpuscular HGB 23.2 pg (26.0-34.0); Mean Corpuscular HGB Conc 32.2 g/dL (31.5-36.5); Mean Corpuscular Volume 72 fL (80-100); Mean Platelet Volume 9.9 fL (9.1-12.4); Platelet Count 457 K/mm3 (150-400); RDW Coefficient Variation 16.5 % (11.7-14.2); Red Blood Cell Count 3.83 M/mm3 (4.30-5.90)
[2023-02-14 05:55] LABS: Bun/Creatinine Ratio 14.2 (12.0-20.0); Calcium, Blood 8.4 mg/dL (8.5-10.1); Creatinine, Blood 1.2 mg/dL (0.60-1.20); Potassium, Blood 4.3 mmol/L (3.5-5.5)
[2023-02-14 07:27] VITALS: BP 139/75
[2023-02-14 14:45] VITALS: BP 123/76
--- NOTE | 2023-02-14 16:35 | NUR ---
SHIFT SUMMARY PATIENT IS ALERT AND ORIENTED. PATIENT HAS HAD NO ACUTE EVENT THIS SHIFT. VITAL SIGNS REVIWED. PATIENT HAS HAD NO COMPLAINTS OF PAIN, NAUSEA, SOB OR VOMITTING THIS SHIFT. DRESSING TO LLE IS CDI. BED IN LOCKED AND LOWEST POSITION. ABX INFUSED ORDERED.
[2023-02-14 19:31] VITALS: BP 156/86
[2023-02-15 05:04] VITALS: BP 150/85
[2023-02-15 05:36] LABS: Hematocrit 26.3 % (37.0-53.0); Hemoglobin 8.4 g/dL (13.5-17.5); Mean Corpuscular HGB 23.2 pg (26.0-34.0); Mean Corpuscular HGB Conc 31.9 g/dL (31.5-36.5); Mean Corpuscular Volume 73 fL (80-100); Platelet Count 457 K/mm3 (150-400); RDW Coefficient Variation 16.8 % (11.7-14.2); RDW Standard Deviation 44.2 fL (35.1-46.3); Red Blood Cell Count 3.62 M/mm3 (4.30-5.90); White Blood Cell Count 8.93 K/mm3 (4.00-11.30)
[2023-02-15 06:04] LABS: Bun/Creatinine Ratio 14.1 (12.0-20.0); Calcium, Blood 8.1 mg/dL (8.5-10.1); Creatinine, Blood 1.28 mg/dL (0.60-1.20); Potassium, Blood 4.1 mmol/L (3.5-5.5)
--- NOTE | 2023-02-15 06:09 | NUR ---
SHIFT SUMMARY PT IS A&O4, SB TO THE BR USES URINAL, RA, VSS, DRESSING TO LEFT FOOT CDI, NO COMPLAINTS OF PAIN OR DISCOMFORT THIS SHIFT, NO ACUTE EVENTS OVERNIGHT, CONTINUE POC
[2023-02-15 07:32] VITALS: BP 142/85
[2023-02-15 10:20] LABS: Percent Saturation 7.8 % (20.0-50.0)
[2023-02-15 15:17] VITALS: BP 157/77
--- NOTE | 2023-02-15 18:09 | NUR ---
SHIFT SUMMARY NO ACUTE CHANGES THIS SHIFT. PATIENT IS ALERT AND ORIENTED, ABLE TO MAKE HIS NEEDS KNOWN. HE IS INDEPENDENT WHEN USING URINAL AT THE BEDSIDE. ORDER FOR WOUND VAC RECEIVED, REQUESTING INPATIENT WOUND CARE CONSULT FOR TOMORROW. PATIENT IS ANXIOUS TO RETURN HOME. HE REPORTS TRANSPORTATION IS A BARRIER TO KEEPING MEDICAL APPOINTMENTS AND MULTIPLE PER WEEK WILL BE A CHALLENGE. HE HAS OPEN CARD MEDICAID, PROVIDED HIM WITH THE [facility] PHONE NUMBER AND INSTRUCTED HIM TO REQUEST TO BE A PART OF [facility] AND THAT HIS APPROVED, HE WILL HAVE TRANSPORTATION TO/FROM ALL MEDICAL APPOINTMENTS. HE VERBALIZED UNDERSTANDING. BED LOW AND LOCKED, CALL LIGHT WITHIN REACH. WILL CONT TO MONITOR AND PROVIDE REPORT TO ONCOMING RN.
[2023-02-15 21:05] VITALS: BP 163/74
--- NOTE | 2023-02-16 05:04 | NUR ---
SHIFT SUMMARY PT IS A&O4, INDEPENDENT IN ROOM USING URINAL, RA, VSS, WOUND CARE CONSULT ORDERED FOR TODAY PENDING WOUND VAC PLACEMENT, DRESSING TO FOOT CDI, NO COMPLAINTS OF PAIN OVERINIGHT, CONTINUE POC
[2023-02-16 06:09] VITALS: BP 149/82
[2023-02-16 07:27] VITALS: BP 145/82
[2023-02-16 15:49] VITALS: BP 156/103
--- NOTE | 2023-02-16 15:54 | NUR ---
PT'S AFTERNOON BP WAS ELEVATED AT 156/103. CALLED AND NOTIFED DR CHAPPELL. DR ADVISED TO CONTINUE MONITORING VS BUT NO NEW ORDERS GIVEN AT THIS TIME.
--- NOTE | 2023-02-16 16:09 | NUR ---
WOUND CARE WOUND VAC PLACED PER ORDER. L FOOT CLEANSED NS, THREE PIECES BLACK FOAM PLACED, VAC SET TO CONTINOUS 120MMHG. PT TOLERATED WELL. NEW PHOTO AND ASSESSMENT IN HARD CHART
--- NOTE | 2023-02-16 16:52 | NUR ---
SHIFT SUMMARY PT A&OX4. PT HAS BEEN REFUSING SEVERAL SCHEDULED MEDICATIONS. PT ALSO REFUSING PO IRON. DR CHAPPELL GAVE ORDER FOR IV IRON. PT TOLERATED WELL. WOUND CARE IN TO CHANGE LEFT FOOT DRESSING TODAY. WOUND VAC PLACED. OT AND PHYSICAL THERAPY WORKED WITH PT AND EDCUATED PT ON 25% HEAL WEIGHT BEARING ONLY. CONTINUE TO REINFORCE EDUCATIONIN. PT'S BP WAS ELEVATED IN AFTERNOON. DR CHAPPELL NOTIFIED. SEE NOTE FOR DETAILS. CALLS APPROPRIATLY. BED IN LOWEST POSITION AND CALL LIGHT IN REACH.
[2023-02-16 21:30] VITALS: BP 163/107
--- NOTE | 2023-02-17 05:10 | NUR ---
SHIFT SUMMARY PT IS A&O4, SB TO BR PT USING URNIAL, WOUND VAC SET 120MMHG, VSS, RA, PT STILL REFUSING MOST MEDS, NO COMPLIANTS OF PAIN OR DISCOMFORT OVERNIGHT, CONTINUE POC
[2023-02-17 05:58] VITALS: BP 143/92
[2023-02-17 15:46] VITALS: BP 135/75
--- NOTE | 2023-02-17 18:14 | NUR ---
SHIFT SUMMARY NO ACUTE CHANGES. PT CALLS APPROPRIATLY. PHYSICAL THERAPY AND OT WORKED WITH PT TODAY. DIETITIAN CONSULTED WITH PT. WOUND VAC IN PLACE AND MAINTAINING SUCTION. NO C/O PAIN. VSS. BED IN LOWEST POSITION AND CALL LIGHT IN REACH.
[2023-02-17 20:28] VITALS: BP 163/93
[2023-02-18 04:33] VITALS: BP 152/90
[2023-02-18 07:45] VITALS: BP 128/98
--- NOTE | 2023-02-18 11:12 | NUR ---
WOUND CARE LLE WOUND VAC CHANGED PER ORDER. WOUND CLEANSED NS, THREE PIECES BLACK FOAM, XEROFORM REMOVED. DC'D XEROFORM. THREE PIECES BLACK FOAM APPLIED. WOUND BED SHOWING SLIGHT IMPROVEMENT BUT STILL BOGGY WITH SOME MACERATION PROXIMAL SUTURE LINE WITH INCREASED BREAKDOWN. VAC SET TO CONTINOUS 120MMHG. PT TOLERATED WELL.
[2023-02-18] MEDS ORDERED: Aspir 8181 MG PO (12:14)
[2023-02-18] MEDS ORDERED: CARB200 PO (12:14)
[2023-02-18] MEDS ORDERED: Vibramycin100 MG PO (12:15)
[2023-02-18] MEDS ORDERED: HUMALOG KW100 UNIT/1 SC (12:16)
--- NOTE | 2023-02-18 15:08 | NUR ---
DISCHARGE. PT DISCHARGED TO [facility]. WOUND VAC DISCONNECTED AND SECURED TO PT FOR TRANSPORT. PT IS ALERT AND ORIENTED X4, R/A. BELONGS ARE WITH PT. REPORT GIVEN TO Raul FARRAR RN.
== END 2023-02-18 15:05 | DRG 504 ==
LOC: ER 13:53 → ERHOLD 18:35 → MEDS 18:35 → ENPENDDIS 02-18 11:46 → MEDS 02-18 15:05
PROVIDERS: Internal Medicine; Nurse Practitioner Acute Care; Physician Assistant; Podiatrist; ADMIT Internal Medicine
PROC: 30233N1 Transfusion of Nonautologous Red Blood Cells into Peripheral Vein, Percutaneous Approach (ICD-10-PCS; 2023-02-12)
PROC: 0QBP0ZZ Excision of Left Metatarsal, Open Approach (ICD-10-PCS; principal; 2023-02-13 10:30)
DX: T87.54 Necrosis of amputation stump, left lower extremity (principal); E11.52 Type 2 diabetes mellitus with diabetic peripheral angiopathy with gangrene; E87.1 Hypo-osmolality and hyponatremia; M86.172 Other acute osteomyelitis, left ankle and foot; I96 Gangrene, not elsewhere classified; L03.116 Cellulitis of left lower limb; E11.621 Type 2 diabetes mellitus with foot ulcer; E11.69 Type 2 diabetes mellitus with other specified complication; D50.9 Iron deficiency anemia, unspecified; F39 Unspecified mood [affective] disorder; I44.1 Atrioventricular block, second degree; B95.61 Methicillin susceptible Staphylococcus aureus infection as the cause of diseases classified elsewhere; D63.8 Anemia in other chronic diseases classified elsewhere; F32.A Depression, unspecified; I25.10 Atherosclerotic heart disease of native coronary artery without angina pectoris; N18.30 Chronic kidney disease, stage 3 unspecified; E11.22 Type 2 diabetes mellitus with diabetic chronic kidney disease; B96.20 Unspecified Escherichia coli [E. coli] as the cause of diseases classified elsewhere; B96.89 Other specified bacterial agents as the cause of diseases classified elsewhere; F17.210 Nicotine dependence, cigarettes, uncomplicated; E78.5 Hyperlipidemia, unspecified; L97.524 Non-pressure chronic ulcer of other part of left foot with necrosis of bone; Y83.8 Other surgical procedures as the cause of abnormal reaction of the patient, or of later complication, without mention of misadventure at the time of the procedure; I48.0 Paroxysmal atrial fibrillation; Z91.012 Allergy to eggs; Z91.011 Allergy to milk products; Z79.891 Long term (current) use of opiate analgesic; Z88.0 Allergy status to penicillin; Z79.899 Other long term (current) drug therapy; Z88.5 Allergy status to narcotic agent; Z91.018 Allergy to other foods; Z79.4 Long term (current) use of insulin; Z79.2 Long term (current) use of antibiotics; Z79.82 Long term (current) use of aspirin; I25.2 Old myocardial infarction; Z86.73 Personal history of transient ischemic attack (TIA), and cerebral infarction without residual deficits; Z87.442 Personal history of urinary calculi; Z89.421 Acquired absence of other right toe(s); Z90.49 Acquired absence of other specified parts of digestive tract; Z98.890 Other specified postprocedural states
CPT/HCPCS: 36415; 36430; 73630; 73701; 80048; 80053; 80202; 82728; 82947; 83540; 83550; 83735; 84100; 84443; 85025; 85027; 85610; 86850; 86900; 86901; 86923; 87040; 87070; 87071; 87075; 87076; 87077; 87147; 87185; 87186; 87205; 88305; 88311; 90471; 90715; 93005; 93010; 96361; 96365-59; 96366; 96375-59; 97110; 97116; 97162; 97166; 97530; 97535; 99285-25; A9270; J0360; J0744; J1100; J1650; J1750; J1815; J2001; J2250; J2405; J2704; J3010; J3370; J7030; J7050; J7120; P9016; Q9967

== ENCOUNTER 2023-03-09 00:35 | Day surgery (SDC) | payer MEDICARE, OTHER ==
[~2023-03-09 00:35] MED LIST changes: +CARB200 PO; +HUMALOG KW100 UNIT/1 SC
== END 2023-03-09 22:56 | disposition home or self-care (01) ==
LOC: WOUND 00:35
DX: E11.621 Type 2 diabetes mellitus with foot ulcer (principal); L97.909 Non-pressure chronic ulcer of unspecified part of unspecified lower leg with unspecified severity; Z89.422 Acquired absence of other left toe(s)
CPT/HCPCS: G0463

== ENCOUNTER 2023-03-16 01:15 | Day surgery (SDC) | payer MEDICARE, OTHER | END 2023-03-16 23:08 | disposition home or self-care (01) | LOC: WOUND 01:15 | DX: T81.89XA Other complications of procedures, not elsewhere classified, initial encounter (principal); E11.621 Type 2 diabetes mellitus with foot ulcer; Z89.422 Acquired absence of other left toe(s) ==

== ENCOUNTER 2023-03-26 03:33 | Day surgery (SDC) | payer MEDICARE, OTHER | END 2023-03-26 22:40 | disposition home or self-care (01) | LOC: WOUND 03:33 | DX: T81.31XD Disruption of external operation (surgical) wound, not elsewhere classified, subsequent encounter (principal); E11.621 Type 2 diabetes mellitus with foot ulcer; E11.40 Type 2 diabetes mellitus with diabetic neuropathy, unspecified; I48.91 Unspecified atrial fibrillation; F17.210 Nicotine dependence, cigarettes, uncomplicated; Z89.422 Acquired absence of other left toe(s); Z79.01 Long term (current) use of anticoagulants; Y83.8 Other surgical procedures as the cause of abnormal reaction of the patient, or of later complication, without mention of misadventure at the time of the procedure | CPT/HCPCS: G0463 ==

== ENCOUNTER 2023-04-02 11:02 | Inpatient (IN) | payer MEDICARE, OTHER ==
[~2023-04-02] VITALS: Ht 180.3 cm; Wt 63.5 kg
[2023-04-02 11:56] LABS: BASOPHILS ABSOLUTE AUTO 0.06 K/mm3 (0.00-0.23); BASOPHILS PERCENT AUTO 0 % (0-2); EOSINOPHILS ABSOLUTE AUTO 0.05 K/mm3 (0.00-0.68); EOSINOPHILS PERCENT AUTO 0 % (0-6); Hematocrit 32.1 % (37.0-53.0); Hemoglobin 10.3 g/dL (13.5-17.5); IMMATURE GRAN ABSOLUTE AUTO 0.09 K/mm3 (0.00-0.10); IMMATURE GRAN PERCENT AUTO 0 % (0-1); LYMPHOCYTES ABSOLUTE AUTO 0.67 K/mm3 (0.84-5.20); LYMPHOCYTES PERCENT AUTO 3 % (21-46); MONOCYTES ABSOLUTE AUTO 0.94 K/mm3 (0.16-1.47); MONOCYTES PERCENT AUTO 5 % (4-13); Mean Corpuscular HGB 24.4 pg (26.0-34.0); Mean Corpuscular HGB Conc 32.1 g/dL (31.5-36.5); Mean Corpuscular Volume 76 fL (80-100); Mean Platelet Volume 9.6 fL (9.1-12.4); NEUTROPHILS ABSOLUTE AUTO 18.45 K/mm3 (1.96-9.15); NEUTROPHILS PERCENT AUTO 91 % (41-73); Platelet Count 470 K/mm3 (150-400); RDW Coefficient Variation 17.7 % (11.7-14.2); RDW Standard Deviation 49.4 fL (35.1-46.3); Red Blood Cell Count 4.22 M/mm3 (4.30-5.90); White Blood Cell Count 20.26 K/mm3 (4.00-11.30)
[2023-04-02 12:13] LABS: Albumin, Blood 2.5 g/dL (3.4-5.0); Albumin/Globulin Ratio 0.4 (0.8-1.8); Bilirubin, Total 0.8 mg/dL (0.1-1.0); Bun/Creatinine Ratio 19.2 (12.0-20.0); Calcium, Blood 8.9 mg/dL (8.5-10.1); Creatinine, Blood 1.46 mg/dL (0.60-1.20); Magnesium, Blood 2.5 mg/dL (1.6-2.4); Potassium, Blood 4.1 mmol/L (3.5-5.5); Total Protein, Blood 8.5 g/dL (6.4-8.2)
[2023-04-02 18:42] VITALS: BP 136/82
[2023-04-02 20:58] LABS: Anti-Xa UFH, PHA Monitoring <0.10 IU/mL; International Normalized Ratio 1.15
[2023-04-03] VITALS (16 sets, daily range): BP systolic 76–157; BP diastolic 43–88
[2023-04-03 04:24] LABS: Base Excess Venous -5.3 mmol/L; Bicarbonate Venous 20.7 mmol/L (24.0-30.0); PCO2 Venous 24.6 mmHg (38-42); pH Blood Venous 7.48 (7.34-7.37)
[2023-04-03 04:56] LABS: BASOPHILS ABSOLUTE AUTO 0.05 K/mm3 (0.00-0.23); BASOPHILS PERCENT AUTO 0 % (0-2); EOSINOPHILS ABSOLUTE AUTO 0.01 K/mm3 (0.00-0.68); EOSINOPHILS PERCENT AUTO 0 % (0-6); Hematocrit 22.6 % (37.0-53.0); Hemoglobin 7.4 g/dL (13.5-17.5); IMMATURE GRAN ABSOLUTE AUTO 0.09 K/mm3 (0.00-0.10); IMMATURE GRAN PERCENT AUTO 1 % (0-1); LYMPHOCYTES ABSOLUTE AUTO 0.57 K/mm3 (0.84-5.20); LYMPHOCYTES PERCENT AUTO 3 % (21-46); MONOCYTES ABSOLUTE AUTO 1.16 K/mm3 (0.16-1.47); MONOCYTES PERCENT AUTO 6 % (4-13); Mean Corpuscular HGB 24.3 pg (26.0-34.0); Mean Corpuscular HGB Conc 32.7 g/dL (31.5-36.5); Mean Corpuscular Volume 74 fL (80-100); Mean Platelet Volume 10.1 fL (9.1-12.4); NEUTROPHILS ABSOLUTE AUTO 17.54 K/mm3 (1.96-9.15); NEUTROPHILS PERCENT AUTO 90 % (41-73); Platelet Count 381 K/mm3 (150-400); RDW Standard Deviation 48.5 fL (35.1-46.3); Red Blood Cell Count 3.05 M/mm3 (4.30-5.90); White Blood Cell Count 19.42 K/mm3 (4.00-11.30)
[2023-04-03 05:43] LABS: Albumin, Blood 1.9 g/dL (3.4-5.0); Albumin/Globulin Ratio 0.4 (0.8-1.8); Bilirubin, Total 0.6 mg/dL (0.1-1.0); Bun/Creatinine Ratio 19.1 (12.0-20.0); Creatinine, Blood 1.62 mg/dL (0.60-1.20); Globulin, Blood 4.6 g/dL (2.2-4.0); Potassium, Blood 3.9 mmol/L (3.5-5.5)
[2023-04-03 05:52] LABS: Total Protein, Blood 6.5 g/dL (6.4-8.2)
--- NOTE | 2023-04-03 06:14 | NUR ---
PT ADMIT DONE, VERY UPSET PT DEPRESSED ABOUT OUT COME OF FOOT. LEFT FOOT SWOLLEN AND HAS FOWL SMELL,PICTURES TAKEN AND SCD APPLIED. PT ABLE TO AMB WITH CANE AND ONE PERSON ASSIST. ULTRASOUND SHOWED DVT OF LEFT FT SO PT STARTED ON HEPARIN AND SO FAR TOLERATING IT WELL. PT ASSISTED TO BEDSIDE COMMODE AND SEEMS VERY TIRED AND OUT OF BREATH WHEN AMBULATING, ENC PT TO CALL AND MAYBE CONT USING BSC FOR NOW. PHARMACY CALLED AND QUESTIONED ME ABOUT HEPARIN RUNNING BECAUSE BLOOD COUNT WAS NOT CONSISTENT WITH SOMEONE ON HEPARIN. I RECHECKED HEP AND DOSAGE WELL IV SITE WHICH GAVE ME A BLOOD RETURN, SO LAB RETURNED TO REDRAW HEP, WILL WAIT AND SEE RESULTS. PT NPO FOR SX FOR NOW
--- NOTE | 2023-04-03 08:14 | NUR ---
RECEIVED A PHONE CALL FROM DR. SHEPPARD THIS MORNING ABOUT THE PATIENT HAVING A BKA PROCEDURE TODAY AFTER CONSULTING WITH DR. LEE. I NOTIFIED HIM THAT THE PATIENT WAS STARTED ON A HEPARIN DRIP LAST NIGHT DUE TO FINDINGS OF DVT OF HIS AFFECTED LEFT LEG. HE ADVISED FOR ME TO NOTIFY DR. LEE. DR. LEE WAS NOTIFIED; SHE ADVISED FOR ME TO ASK THE HOSPITALIST IF IT WAS OKAY TO STOP THE HEPARIN DRIP. I CONTACTED DR. CHAPPELL AND GOT PERMISSION TO STOP THE HEPARIN DRIP. HERPARIN DRIP STOPPED, DR. LEE NOTIFIED, AND PTT ORDERED TO BE DRAWN AT [address] LEE. PHARMACY NOTIFIED OF HEPARIN DRIP BEING STOPPED AND ORDERED D/C'D. PLAN OF CARE ONGOING.
--- NOTE | 2023-04-03 15:49 | NUR ---
PRE-OP NOTE PT A&OX4, BREATHING RA, IRRITABLE BUT COOPERATIVE. GLASSES TO PACU AND DENTURES LEFT IN MEDICAL FLOOR ROOM. AT BEDSIDE. Patient confirms NPO status and agrees with scheduled surgery. Pre-Op teaching done. Pt verbalizes understanding.
--- NOTE | 2023-04-03 16:09 | NUR ---
GOT A CALL FROM DR. CHAPPELL. HE WOULD LIKE FOR THE PATIENT TO RESTART ON A HEPARIN DRIP POST SURGERY. CALL MADE TO PHARMACY ABOUT RESTARTING HEPARIN DRIP WHEN PATIENT RETURNS FROM SURGERY. NURSE NOTIFY NOTE ADDED TO NOTIFY PHARMACY WHEN PATIENT RETURNS FROM SURGERY.
--- NOTE | 2023-04-03 18:28 | NUR ---
SHIFT SUMMARY: PATIENT 68 YEAR OLD MALE HERE FOR SEPSIS RELATED TO INFECTION OF LEFT FOOT. HE UNDERWENT A L BKA TODAY AND RETURNED TO THE FLOOR AROUND 1730. HE DENIES PAIN, NAUSEA OR VOMITING. POST OP VITALS HAVE BEEN OBTAINED AND ARE STABLE. HE IS IN BED, CALL LIGHT WITHIN REACH, NO SIGNS OR SYMPTOMS OF DISTRESS. PLAN OF CARE ONGOING.
--- NOTE | 2023-04-03 18:42 | NUR ---
PER DR. MARISELA LEE START HEPARIN DRIP AT 2100 AT THE EARLIEST AND MONITOR POST OP SITE FOR BLEEDING. DR. CHAPPELL NOTIFIED. HEPARIN ORDERS IN EMAR. PLAN OF CARE ONGOING.
[2023-04-04 03:22] VITALS: BP 158/94
[2023-04-04 07:19] VITALS: BP 149/92
--- NOTE | 2023-04-04 07:46 | NUR ---
SHIFT SUMMARY PT IS A&O X3 WITH CONFUSION THAT COULD BE RELATED TO PTS REPORTED LACK OF SLEEP. PT IS OF IRRITABLE AFFECT. PT HAS A LEFT BKA AND WANTS TO GET UP OUT OF BED-PT HAS NOT SEEN PT AND HAS NOT BEEN UP AFTER SURGERY. PT WAS UP ALL NIGHT WATCHING TV AND TALKING WITH HIS ON THE PHONE. PT IS PARTICULAR ON HIS WANTS AND IS ABLE TO MAKE HIS NEEDS KNOWN. PT WILL USE THE CALL LIGHT AT TIMES. HEPARIN DRIP STARTED ON PT THIS SHIFT-SEE EMAR. PT DENIES CHEST PAIN/PRESSURE/TIGHTNESS. TELE IS ON AND IN PLACE. BED IS LOCKED AND IN THE LOWEST POSITION WITH CALL LIGHT IN REACH.
[2023-04-04 09:00] LABS: Bun/Creatinine Ratio 17.6 (12.0-20.0); Calcium, Blood 8.1 mg/dL (8.5-10.1); Creatinine, Blood 1.36 mg/dL (0.60-1.20); Potassium, Blood 4.1 mmol/L (3.5-5.5)
[2023-04-04 09:13] LABS: BASOPHILS ABSOLUTE AUTO 0.02 K/mm3 (0.00-0.23); BASOPHILS PERCENT AUTO 0 % (0-2); EOSINOPHILS PERCENT AUTO 0 % (0-6); Hematocrit 23.8 % (37.0-53.0); Hemoglobin 7.7 g/dL (13.5-17.5); IMMATURE GRAN ABSOLUTE AUTO 0.06 K/mm3 (0.00-0.10); IMMATURE GRAN PERCENT AUTO 1 % (0-1); LYMPHOCYTES ABSOLUTE AUTO 0.38 K/mm3 (0.84-5.20); LYMPHOCYTES PERCENT AUTO 3 % (21-46); MONOCYTES PERCENT AUTO 4 % (4-13); Mean Corpuscular HGB 24.3 pg (26.0-34.0); Mean Corpuscular HGB Conc 32.4 g/dL (31.5-36.5); Mean Corpuscular Volume 75 fL (80-100); Mean Platelet Volume 10.6 fL (9.1-12.4); NEUTROPHILS ABSOLUTE AUTO 10.79 K/mm3 (1.96-9.15); NEUTROPHILS PERCENT AUTO 92 % (41-73); Platelet Count 429 K/mm3 (150-400); RDW Coefficient Variation 18.5 % (11.7-14.2); Red Blood Cell Count 3.17 M/mm3 (4.30-5.90); White Blood Cell Count 11.75 K/mm3 (4.00-11.30)
[2023-04-04 12:28] LABS: Vancomycin, Trough 19.8 ug/mL (5.0-10.0)
[2023-04-04 16:14] VITALS: BP 128/77
--- NOTE | 2023-04-04 18:09 | NUR ---
SHIFT SUMMARY: PATIENT IS A/OX4. PLEASANT AND COOPERATIVE c CARE PROVIDED. PATIENT DENIES CP/PRESSURE, SOB, DIZINESS. N/V AND GENERALIZED PAIN. PATIENT ON TELE, SR HR IN THE 80'S AND DIP DOWN TO HIGH 30'S BPM c OCCASIONAL PVC AND [address]ST [address] HB[address] DR. DONALDSON IS AWARE OF THIS ISSUES. 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 PT RECOMMENDED SNF. S/P L BKA, DRESSING C/D/I. PATIENT BS RANGES 230-265, RECEIVED INSULIN PER EMAR COVERAGE. PATIENT REFUSED SCHEDULED PO MEDS (TEGRETOL AND PROBIOTIC), PER PATIENT "I DON'T WANNA TAKE THAT MEDICATIONS, MY PCP IS AWARE OF THIS AND I HAVE NOT TAKEN THIS FOR A WHILE." EDUCATE PATIENT THE RISK AND BENIFITS OF NOT TAKING THE MEDS, BUT STILL REFUSED. DR. DONALDSON IS AWARE OF THIS ISSUE. PATIENT RECEIVED IV ABX. PATIENT RECEIVED OT DOSE OF HEPARIN BOLUS, PIV TO R HAND INFUSING HEPARIN AT 22 U/KG/HR, RATE CONTROLLED BY PHARMACIST. PIV TO LAC INFUSING ABX AT THIS TIME. PATIENT IS CONTINENCE OF BLADDER AND USES URINAL IN BED. BED ALARM ON FOR SAFETY. CALL LIGHT IN REACH.
[2023-04-04 19:26] VITALS: BP 123/73
--- NOTE | 2023-04-04 22:30 | NUR ---
TELE CALLED. PT HEART RATE DIPPING DOWN TO 38 OFF AND ON, PT IS ASYMPTOMATIC HAVING FULL CONVERSATION WITH ON THE PHONE. TELE WILL CONTINUE TO MONITOR.
--- NOTE | 2023-04-05 04:00 | NUR ---
MACHINE GUNNER REPORTS SIX BEAT RUN OF V-TACH. PATIENT RESTING IN BED. ASYMPTOMATIC. HEPARIN INFUSING. WCTM.
--- NOTE | 2023-04-05 04:59 | NUR ---
SHIFT SUMMARY PATIENT IS A&O X4, PLEASANT, COOPERATIVE WITH CARE, CALLS APPROPRIATELY, AND IS ABLE TO MAKE HIS NEEDS KNOWN. PATIENT IS MORE ALERT THIS EVENING, TREMORS HAVE EASED UP SOME SINCE YESTERDAY. PATIENT AMBULATED TO THE BATHROOM THIS SHIFT. PATIENT DENIES CHEST PAIN/PRESSURE/TIGHTNESS. PAIN ASSESSED-PATIENT DENIES PAIN. NO S/S OF DISTRESS NOTED AT THIS TIME.
--- NOTE | 2023-04-05 05:55 | NUR ---
SHIFT SUMMARY PATIENT IS A&0 X3-4 WITH CONFUSION AT TIMES THAT MAY BE R/T PATIENTS REPORT OF NOT SLEEPING FOR AROUND 40 HOURS. PATIENT IS IRRITABLE AT TIMES, ABLE TO REDIRECT. REFUSED HIS 2100 ORAL MEDS. PATIENT IS OKAY WITH TAKING INSULIN, ABX, AND HEPARIN VIA DRIP. HEPARIN DRIP DOSE INCREASED-SEE ORDERS. PATIENT UP WATCHING TV, TALKING TO ON THE PHONE, AND TALKING WITH STAFF. PATIENT HAS BEEN COOPERATIVE WITH CARE PROVIDED. PATIENT ABLE TO FALL ASLEEP AROUND 0200.NO CHANGES NOTED THIS SHIFT. BED IS LOCKED IN THE LOWEST POSITION WITH CALL LIGHT IN REACH. NO S/S OF DISTRESS NOTED AT THIS TIME.
[2023-04-05 06:41] VITALS: BP 148/76
[2023-04-05 07:39] VITALS: BP 144/94
[2023-04-05 07:46] LABS: BASOPHILS ABSOLUTE AUTO 0.03 K/mm3 (0.00-0.23); BASOPHILS PERCENT AUTO 0 % (0-2); EOSINOPHILS ABSOLUTE AUTO 0.09 K/mm3 (0.00-0.68); EOSINOPHILS PERCENT AUTO 1 % (0-6); Hematocrit 23.1 % (37.0-53.0); Hemoglobin 7.4 g/dL (13.5-17.5); IMMATURE GRAN ABSOLUTE AUTO 0.05 K/mm3 (0.00-0.10); IMMATURE GRAN PERCENT AUTO 1 % (0-1); LYMPHOCYTES ABSOLUTE AUTO 1.01 K/mm3 (0.84-5.20); LYMPHOCYTES PERCENT AUTO 14 % (21-46); MONOCYTES ABSOLUTE AUTO 0.42 K/mm3 (0.16-1.47); MONOCYTES PERCENT AUTO 6 % (4-13); Mean Corpuscular HGB 24.2 pg (26.0-34.0); Mean Corpuscular Volume 76 fL (80-100); Mean Platelet Volume 9.8 fL (9.1-12.4); NEUTROPHILS PERCENT AUTO 78 % (41-73); Platelet Count 410 K/mm3 (150-400); RDW Coefficient Variation 18.7 % (11.7-14.2); RDW Standard Deviation 51.8 fL (35.1-46.3); Red Blood Cell Count 3.06 M/mm3 (4.30-5.90)
[2023-04-05 08:11] LABS: Albumin, Blood 1.7 g/dL (3.4-5.0); Albumin/Globulin Ratio 0.4 (0.8-1.8); Bilirubin, Total 0.2 mg/dL (0.1-1.0); Bun/Creatinine Ratio 24.3 (12.0-20.0); Creatinine, Blood 1.48 mg/dL (0.60-1.20); Potassium, Blood 3.8 mmol/L (3.5-5.5); Total Protein, Blood 5.7 g/dL (6.4-8.2)
[2023-04-05 15:26] VITALS: BP 112/64
--- NOTE | 2023-04-05 17:04 | NUR ---
SHIFT SUMMARY: PATIENT IS A/OX4. CALM, PLEASANT AND COOPERATIVE c CARE PROVIDED. PATIENT DENIES CP/PRESSURE, SOB, N/V AND GENERALIZED PAIN. PATIENT ON TELE, SB/SR HR RANGES MID 30'S TO LOW 70'S BPM c OCCASIONAL PAC AND 1ST DEGREE HB. DR. DONALDSON IS AWARE OF THIS ISSUES. PATIENT EXPRESSESS CONCERN REGARDING S/P L BKA AND HAS 7 STEPS AT HOME, PT RECOMMENDED SNF. PER PATIENT "I KNOW THAT I NEEDED TO HAVE A STRENGTHENING DONE AT THE REHAB FACILITY BUT I AM NOT GOING TO AND I TOTALLY REFUSED TO GO TO REHAB, I'VE BEEN THERE AND I DON'T LIKE IT." EDUCATE PATIENT THE BENEFITS TO HAVE REHAB, SPECIALLY IT'S A NEW AMPUTATION IT MIGHT TAKES A WHILE TO GET USE TO IT, BUT PATIENT TOTALLY REFUSED IT. PATIENT HAD BEDBATH AND LINEN CHANGED TODAY. PATIENT UP TO BSC c 2 MAX ASSIST, GAITBELT/FWW AND HAD SOFT MED BROWN BM. L BKA DRESSING C/D/I. PATIENT RECEIVED IV ABX AND REFUSED SCHEDULED PO MEDS PER EMAR. BS RANGES 125-139, c NO INSULIN COVERAGE THIS SHIFT. PIV TO R HAND INFUSING HEPARIN AT 24 U/KG/HR AND RATE CONTROLLED BY PHARMACIST. PIV TO LAC SALINE LOCKED. VITAL SIGNS REVIEWED. BED ALARM ON FOR SAFETY. CALL LIGHT IN REACH.
[2023-04-05 19:52] VITALS: BP 134/77
--- NOTE | 2023-04-06 02:55 | NUR ---
PATIENTS IV TO RIGHT WRIST INFUSING HEPARIN CAME OUT, HEPARIN STOPPED WHILE BLEEDING STOPPED AND NEW IV ACCESS PLACED. PHARMACY NOTIFIED OF HEPARIN STOP AND WHEN RESTARTED.
[2023-04-06 03:07] VITALS: BP 143/66
--- NOTE | 2023-04-06 04:59 | NUR ---
SHIFT SUMMARY PATIENT A&O X4. PATIENT HAS BEEN PLEASANT, AND COOPERATIVE WITH CARE. NO ACUTE CHANGES NOTED. PATIENT IS ABLE MAKE HIS NEEDS KNOWN AND CALLS APPROPRIATELY. DENIED 2100 ORAL MEDS, PATIENT TAKES INSULIN AND ABX. PATIENT HAS BEEN AWAKE THIS SHIFT. DENIES CHEST PAIN/PRESSURE/TIGHTNESS. PAIN ASSESSED-PATIENT DENIED PAIN. BED IS LOCKED IN THE LOWEST POSITION WITH CALL LIGHT IN REACH.
[2023-04-06 07:16] LABS: BASOPHILS ABSOLUTE AUTO 0.03 K/mm3 (0.00-0.23); BASOPHILS PERCENT AUTO 1 % (0-2); EOSINOPHILS ABSOLUTE AUTO 0.13 K/mm3 (0.00-0.68); EOSINOPHILS PERCENT AUTO 3 % (0-6); Hematocrit 22.3 % (37.0-53.0); Hemoglobin 7.1 g/dL (13.5-17.5); IMMATURE GRAN ABSOLUTE AUTO 0.05 K/mm3 (0.00-0.10); IMMATURE GRAN PERCENT AUTO 1 % (0-1); LYMPHOCYTES ABSOLUTE AUTO 1.02 K/mm3 (0.84-5.20); LYMPHOCYTES PERCENT AUTO 20 % (21-46); MONOCYTES ABSOLUTE AUTO 0.53 K/mm3 (0.16-1.47); MONOCYTES PERCENT AUTO 10 % (4-13); Mean Corpuscular HGB 24.1 pg (26.0-34.0); Mean Corpuscular HGB Conc 31.8 g/dL (31.5-36.5); Mean Corpuscular Volume 76 fL (80-100); Mean Platelet Volume 10.2 fL (9.1-12.4); NEUTROPHILS ABSOLUTE AUTO 3.45 K/mm3 (1.96-9.15); NEUTROPHILS PERCENT AUTO 66 % (41-73); Platelet Count 419 K/mm3 (150-400); RDW Coefficient Variation 18.6 % (11.7-14.2); Red Blood Cell Count 2.95 M/mm3 (4.30-5.90); White Blood Cell Count 5.21 K/mm3 (4.00-11.30)
[2023-04-06 07:31] LABS: Bun/Creatinine Ratio 22.5 (12.0-20.0); Calcium, Blood 7.6 mg/dL (8.5-10.1); Creatinine, Blood 1.42 mg/dL (0.60-1.20); Potassium, Blood 4.1 mmol/L (3.5-5.5)
[2023-04-06 15:00] VITALS: BP 143/72
--- NOTE | 2023-04-06 16:26 | NUR ---
SHIFT SUMMARY; PATIENT WORKED WITH PT AND OT TODAY WHO ARE STILL RECOMMENDING SNF FOR THIS PATIENT HE IS A MAX ASSIST TO BEDSIDE COMMODE AND TO CHAIR AND BACK. SHAHZADTENT USES FWW AND GAIT BELT. HE REFUSES AM MEAL AND PO MEDICATIONS. HEPARIN DC'D PER ORDER AND SHAHZADTENT IS STARTED ON ELOQUIS. NO COVERAGE NECESSARY FROM CHEM BG'S. L BKA WOUND SITE CLEAN AND INTACT. PATIENT REMAINS ON TELE. HEART RATE BETWEEN 30 AND 70 BEATS PER MINUTE. PER BRENNON ADMITTING COORDINATOR LOOKS TO BE 2ND DEGREE BLOCK OR WHEN IT IS SLOWED DOWN A 2/1 OR FIRST DEGREE. NOTIFIED.
--- NOTE | 2023-04-06 18:04 | NUR ---
RECEIVED CALL FROM [facility]. 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 NOTIFIED RICHARD IS NOT SYMPTOMATIC. NO C/P NO PRESSURE, NO HEADACH, NO DIFFICULTY BREATHING. PER DURING CONVERSATION WITH RICHARD EARLIER TODAY HE DOES NOT WANT A CARDIAC EVAL DONE. WILL PASS THIS ON IN REPORT. PATIENT REMAINS A FULL CODE.
[2023-04-06 19:45] VITALS: BP 80/70
[2023-04-06 22:56] VITALS: BP 158/70
--- NOTE | 2023-04-06 23:23 | NUR ---
Patient was on BSC at beginning of shift by RN noc shift. RN said transfer from bed to commode was done 1 assist I was checking vital signs. Very low systolic 80 and diastolic 50ish. RN was not notifed by SEMI TRUCK DRIVER quick enough before admission discharge rn noticed around approximately 10pm. Vital signs were rechecked. MAybe needs ortho vital signs. Should be a max 2 assist like stated in shift change, from day shift. Tonight is night 4 with patient. Family member helped me transfer him from commode to bed. stand pivot, he refused gait belt i used persuasion. Family is spending the night.
--- NOTE | 2023-04-07 03:12 | NUR ---
END OF SHIFT SUMMARY PT A&O x4, AFEBRILE. PT DENIED PAIN/DISCOMFORT. PT'S ROOMED IN WITH PT OVERNIGHT. PT ABLE TO MAKE NEEDS KNOWN. ENCOURAGED PT TO BE INDEPENDENT POSSIBLE. PT 1-2P SBA TO BSC USING A FWW AND GAIT BELT. PT RECEIVED IV ANTIBIOTICS. PT EDUCATION REGARDING TAKING PROBIOTICS TO REPLACE THE GOOD BACTERIA IN THE INTESTINE. PT CONTINUES TO REFUSE PROBIOTICS. NO LOOSE STOOLS ON NOC SHIFT. PT SEEMED TO BE IRRITABLE, AND RESISTANT TO CARE. PT SLEPT ON AND OFF THROUGHOUT THE SHIFT. CALL LIGHT WITHIN REACH, WCTM.
[2023-04-07 03:56] VITALS: BP 157/70
[2023-04-07 07:25] VITALS: BP 161/76
[2023-04-07 16:38] VITALS: BP 160/74
--- NOTE | 2023-04-07 17:02 | NUR ---
SHIFT SUMMARY; PATIENT HAD NO ACUTE CHANGES IN CONDITON NOTED DURING DAY SHIFT. HE RECEIVED A COMPLETE BED BATH AND BEDDING CHNAGE. PATIENT WAS COOPERATIVE WITH CARE TODAY AND USED CALL LIGHT TO MAKE HIS NEEDS KNOWN. RECEIVED COVERAGE FOR ELEVATED CHEM BG AT 1630 FOR 170 BLOOD SUGAR. PATIENT WAITING FOR APPROVAL FROM INSURANCE TO TRANSFER TO [facility].
[2023-04-07 19:18] VITALS: BP 142/70
[2023-04-08 04:10] VITALS: BP 179/95
--- NOTE | 2023-04-08 04:43 | NUR ---
SHIFT SUMMARY NOC PT A/O X 4. PLEASANT AND COOPERATIVE WITH CARE. NO ACUTE CHANGES TO REPORT. PT REPORTS MINIMAL PAIN FROM L BKA PERFORMED ON 04/03/23 AND DID NOT REQUEST PAIN RX. LLE ELEVATED ON PILLOW, DRESSING CHANGED 04/06/[address] LEE AND IS C/D/I WITH STUMP STOCKING COVERING IT. PT ON TELE RUNNING SINUS SAURAV IN HIGH 50'S. PT WAS RECOMMENDED FOR SNF PLACEMENT BY PT AND WAS ACCEPTED AT [facility] WHICH THEY ARE SCHEDULED TO DISCHARGE TO TODAY. PT IS CURRENTLY RESTING WITH BED IN LOWEST POSITION, AND CALL LIGHT WITHIN REACH.
[2023-04-08 05:09] VITALS: BP 162/73
[2023-04-08 07:26] VITALS: BP 167/98
[2023-04-08 10:19] LABS: Influenza A, PCR NEGATIVE (NEGATIVE); Influenza B, PCR NEGATIVE (NEGATIVE); Resp Syncytial Virus, PCR NEGATIVE (NEGATIVE); SARS-Cov-2 (COVID-19) PCR, MMC NEGATIVE (NEGATIVE)
[2023-04-08] MEDS ORDERED: ELIQUIS5 M2 PO (12:40)
--- NOTE | 2023-04-08 14:26 | NUR ---
DISCHARGE PT DISCHARGED AFTER NEW MEDICATION TEACHING AND FOLLOW UP INSTRUCTIONS WERE COMPLETED. PT AND HIS DENIED FURTHER NEED FOR INSTRUCTION AT THIS TIME. PT REFUSED SNF TRANSFER AND WAS DISCHARGED HOME WITH HIS ON . PT HAS APPOINTMENT TONY MADE FOR TOMORROW AFTERNOON. PT REQUESTED DRESSING TO L LEG BE LEFT IN PLACE FOR THE [facility] TOMORROW. DRESSING CLEAN & INTACT PRIOR TO DC. NO OTHER ACUTE CHANGES IN ASSESSMENT AT THIS TIME. PT WHEELED OUT BY THIS RN AND DRIVEN HOME BY .
== END 2023-04-08 14:20 | disposition home health service (06) | DRG 853 ==
LOC: ER 11:02 → MEDS 16:41
PROVIDERS: Internal Medicine; Nurse Practitioner Acute Care; Orthopaedic Surgery; Physician Assistant; ADMIT Internal Medicine
PROC: 3E03329 Introduction of Other Anti-infective into Peripheral Vein, Percutaneous Approach (ICD-10-PCS; 2023-04-02)
PROC: 0Y6J0Z1 Detachment at Left Lower Leg, High, Open Approach (ICD-10-PCS; principal; 2023-04-03 16:00)
DX: A41.9 Sepsis, unspecified organism (principal); A48.0 Gas gangrene; E11.52 Type 2 diabetes mellitus with diabetic peripheral angiopathy with gangrene; L03.116 Cellulitis of left lower limb; I82.532 Chronic embolism and thrombosis of left popliteal vein; M86.8X7 Other osteomyelitis, ankle and foot; E87.20 Acidosis, unspecified; E78.5 Hyperlipidemia, unspecified; E11.22 Type 2 diabetes mellitus with diabetic chronic kidney disease; I12.9 Hypertensive chronic kidney disease with stage 1 through stage 4 chronic kidney disease, or unspecified chronic kidney disease; N18.30 Chronic kidney disease, stage 3 unspecified; Z11.52 Encounter for screening for COVID-19; J44.9 Chronic obstructive pulmonary disease, unspecified; F32.A Depression, unspecified; F43.10 Post-traumatic stress disorder, unspecified; F17.210 Nicotine dependence, cigarettes, uncomplicated; E11.621 Type 2 diabetes mellitus with foot ulcer; D50.9 Iron deficiency anemia, unspecified; E11.69 Type 2 diabetes mellitus with other specified complication; R29.6 Repeated falls; E11.40 Type 2 diabetes mellitus with diabetic neuropathy, unspecified; D63.8 Anemia in other chronic diseases classified elsewhere; I44.1 Atrioventricular block, second degree; I25.10 Atherosclerotic heart disease of native coronary artery without angina pectoris; I48.0 Paroxysmal atrial fibrillation; Z79.01 Long term (current) use of anticoagulants; Z88.0 Allergy status to penicillin; Z88.5 Allergy status to narcotic agent; Z91.011 Allergy to milk products; Z91.012 Allergy to eggs; Z91.018 Allergy to other foods; I25.2 Old myocardial infarction; I69.334 Monoplegia of upper limb following cerebral infarction affecting left non-dominant side; Z79.4 Long term (current) use of insulin; Z79.82 Long term (current) use of aspirin
CPT/HCPCS: 0241U; 36415; 73620; 80048; 80053; 80202; 82803; 82947; 83605; 83735; 85025; 85520; 85610; 85651; 85730; 86140; 86850; 86900; 86901; 87040; 93005; 93010; 93926; 96361; 96365; 96375; 97110; 97110-CQ; 97116; 97162; 97166; 97530; 97530-CQ; 97535; 99285-25; A9270; J1100; J1644; J1815; J1956; J2405; J2704; J3010; J3370; J7030; J7050; J7120

== ENCOUNTER 2023-04-20 14:22 | Emergency (ER) | payer OTHER, MEDICARE ==
[~2023-04-20] VITALS: Ht 180.3 cm; Wt 63.5 kg
[~2023-04-20 14:22] MED LIST changes: +ELIQUIS5 M2 PO
[2023-04-20 17:30] VITALS: BP 178/84
== END 2023-04-20 20:25 | disposition home or self-care (01) ==
LOC: ER 14:22
DX: S12.491A Other nondisplaced fracture of fifth cervical vertebra, initial encounter for closed fracture (principal); E11.9 Type 2 diabetes mellitus without complications; I48.91 Unspecified atrial fibrillation; F17.210 Nicotine dependence, cigarettes, uncomplicated; Z88.0 Allergy status to penicillin; Z88.5 Allergy status to narcotic agent; Z91.012 Allergy to eggs; Z91.011 Allergy to milk products; Z91.018 Allergy to other foods; Z79.4 Long term (current) use of insulin; Z79.01 Long term (current) use of anticoagulants; W01.0XXA Fall on same level from slipping, tripping and stumbling without subsequent striking against object, initial encounter
CPT/HCPCS: 70450; 72125; 93005; 93010; 99284-25

== ENCOUNTER 2023-05-07 18:07 | Observation (INO) | payer MEDICARE, OTHER ==
[~2023-05-07] VITALS: Ht 180.3 cm; Wt 58.9 kg
[2023-05-07] MEDS ORDERED: NITR.4SL SL (18:37)
[2023-05-07 19:21] LABS: BASOPHILS ABSOLUTE AUTO 0.06 K/mm3 (0.00-0.23); BASOPHILS PERCENT AUTO 1 % (0-2); EOSINOPHILS ABSOLUTE AUTO 0.11 K/mm3 (0.00-0.68); EOSINOPHILS PERCENT AUTO 2 % (0-6); Hematocrit 31.6 % (37.0-53.0); Hemoglobin 9.8 g/dL (13.5-17.5); IMMATURE GRAN ABSOLUTE AUTO 0.02 K/mm3 (0.00-0.10); IMMATURE GRAN PERCENT AUTO 0 % (0-1); LYMPHOCYTES ABSOLUTE AUTO 0.81 K/mm3 (0.84-5.20); LYMPHOCYTES PERCENT AUTO 11 % (21-46); MONOCYTES ABSOLUTE AUTO 0.42 K/mm3 (0.16-1.47); MONOCYTES PERCENT AUTO 6 % (4-13); Mean Corpuscular HGB 24.3 pg (26.0-34.0); Mean Corpuscular Volume 78 fL (80-100); Mean Platelet Volume 10.5 fL (9.1-12.4); NEUTROPHILS ABSOLUTE AUTO 6.06 K/mm3 (1.96-9.15); NEUTROPHILS PERCENT AUTO 81 % (41-73); Platelet Count 326 K/mm3 (150-400); RDW Coefficient Variation 16.5 % (11.7-14.2); RDW Standard Deviation 47.4 fL (35.1-46.3); Red Blood Cell Count 4.03 M/mm3 (4.30-5.90); White Blood Cell Count 7.48 K/mm3 (4.00-11.30)
[2023-05-07 19:28] LABS: Ethanol (Alcohol), Blood, Med <3 mg/dL
[2023-05-07 19:35] LABS: Thyroid Stimulating Hormone 0.258 uIU/mL (0.360-4.800)
[2023-05-07 19:36] LABS: Alanine Aminotransfer (ALT/SGP 11 U/L (12-78); Albumin, Blood 2.8 g/dL (3.4-5.0); Albumin/Globulin Ratio 0.6 (0.8-1.8); Alk Phos 128 U/L (50-136); Anion Gap 10 mmol/L (6-16); Aspartate Aminotrans (AST/SGOT 24 U/L (12-37); Bilirubin, Total 0.6 mg/dL (0.1-1.0); Blood Urea Nitrogen 21 mg/dL (8-24); Bun/Creatinine Ratio 16.4 (12.0-20.0); CO2, Blood 20 mmol/L (21-32); Chloride, Blood 106 mmol/L (98-108); Creatinine, Blood 1.28 mg/dL (0.60-1.20); Glomerular Filtration Rate 61 (60-); Glucose, Blood 159 mg/dL (70-99); Potassium, Blood 4.1 mmol/L (3.5-5.5); Sodium, Blood 136 mmol/L (136-145); Total Protein, Blood 7.8 g/dL (6.4-8.2)
[2023-05-07 20:28] LABS: Influenza A, PCR NEGATIVE (NEGATIVE); Influenza B, PCR NEGATIVE (NEGATIVE); Resp Syncytial Virus, PCR NEGATIVE (NEGATIVE); SARS-Cov-2 (COVID-19) PCR, MMC NEGATIVE (NEGATIVE)
[2023-05-07 22:22] LABS: Free Thyroxine 0.94 ng/dL (0.70-1.60); Triiodothyronine, Free 1.85 pg/mL (2.18-3.98)
[2023-05-08 00:53] LABS: Anti-Xa UFH, PHA Monitoring <0.10 IU/mL; International Normalized Ratio 1.04; Prothrombin Time Results 10.9 Sec (9.7-11.5)
[2023-05-08 02:48] VITALS: BP 156/66
--- NOTE | 2023-05-08 06:46 | NUR ---
REPORT FROM ER TAKEN, VSS PT ARRIVED WITH C- COLLAR IN PLACE. NO C/O PAIN, ADMISSION DONE PICTURES TAKEN, LEFT BKA HEALING AND DOING WELL. PT ABLE TO MAKE NEEDS KNOWN AND CALLS APPROPRIATLY. CT ORDERED FOR PT DUE TO ELEVATED D-DIMER, TANSFERED WELL AND NOTHING OF NOTE SEEN. PT USING URINAL, SWALLOW INTACT, HEAT PAD ADDED BECAUSE PT IS CHRONICLLY COLD. WILL CONT TO MONITOR.
[2023-05-08 07:33] VITALS: BP 145/75
[2023-05-08 15:59] VITALS: BP 182/85
--- NOTE | 2023-05-08 18:46 | NUR ---
SHIFT SUMMARY PT RESTING QUIETLY AT START OF SHIFT. HEPARIN DRIP INFUSING PER EMAR. PER REPORT, PT NOT TAKING ELIQUIS AT HOME FOR A WHILE D/T C/O DIARRHEA. PT ADMITTED FOR SYNCOPE AND FALL. RECENT L BKA, STILL HEALING. ORTHO CONSULT CALLED THIS AM. PT UP WITH THERAPY TODAY, SITTING IN CHAIR AT BS FOR A WHILE. 2P ASSIST BACK TO BED WITH FWW AND GB. IN TO VISIT FOR A WHILE OFF AND ON. BP ELEVATED; SEE CHART. MEDS ORDERED, BUT PT NONCOMPLIANT WITH MEDICATIONS. STATED THAT HE DOESN'T TAKE ANY MEDS NOW AND WON'T TAKE ANY IN THE FUTURE. ATTEMPTED TO EDU PT OF IMPORTANCE AND RATIONAL; UNSUCCESSFUL. POSSIBLE D/C TO SNF TOMORROW. CALL LT IN REACH.
[2023-05-08 20:16] VITALS: BP 142/77
--- NOTE | 2023-05-08 21:08 | NUR ---
PT A&OX4 RECENT LE BKA, PT STATES REFUSUAL OF MEDICATIONS AND WILL FOLLOWUP W PCP ON DISCHARGE EDUCATION PROVIDED WITH MEDICATION HANDOUT PT STATES "AM NOT TAKING IT i WILL GET DIARRHEA AND I WILL NOT TKE THE WARFIN ITS RAT POISON DO I LOOK LIKE A RAT" THEN GESTURED USING MIDDLE FINGER. PT ON TELE SR W PAUSE 82. LUNGS ARE CLEAR T/O BOWEL SOUNDS IN ALL QUADS. LE BKA RECENT HEALING W SENSATION SMALL SCABING TO INCISION. RLE SCABS PT REPORT ITCHING DECLINES LOTION AND PT STATES INC OF BOWEL AND URINE WEARING ATTEND. CALL [place] WITHIN REACH BED LOWERED HEAD ELEVATED WILL CONTINUE TO MONITOR.
[2023-05-09 02:59] VITALS: BP 135/68
--- NOTE | 2023-05-09 04:25 | NUR ---
SHIFT SUMMARY PATIENT IS ALERT AND ORIENTED. PATIENT HAS NOT BEEN COMPLIANT WITH CARE THIS SHIFT. PATIENT REFUSED NIGHT TIME MEDICATIONS AND HAS STATED HE WILL NOT BE COMPLIANT WITH MEDICATIONS. SEE PRIOR NOTE. PATIENT HAS NOT COMPLAINED OF PAIN, NAUSEA, SOB OR VOMITTING THIS SHIFT. VITAL SIGNS REVIEWED. WILL MONITOR UNTIL SHIFT CHANGE.
[2023-05-09 07:39] VITALS: BP 148/72
[2023-05-09 11:41] LABS: SARS-Cov-2 (COVID-19) PCR, MMC NEGATIVE (NEGATIVE)
[2023-05-09] MEDS ORDERED: LISI5 PO (15:21)
--- NOTE | 2023-05-09 15:21 | NUR ---
PATIENT DISCHARGED TO HOME ACCOMPANIED BY HIS . PICC LINE REMOVED BY Jamil STATON RN, NO BLEEDING FROM SITE NOTED. PT AND VERBALIZED UNDERSTANDING OF D/C INSTRUCTIONS AND EDUCATION ABOUT LOW SALT DIET, S/S OF EXACERBATION, WEIGHING DAILY, AND WHEN TO CONTACT HIS PCP. OFF UNIT VIA W/C AT 1457. NO PERSONAL BELONGINGS LEFT BEHING IN ROOM.
--- NOTE | 2023-05-09 15:24 | NUR ---
TELEPHONE REPORT GIVEN TO NELDA PATEL AT [facility]. PT TRANSFER PENDING.
--- NOTE | 2023-05-09 16:00 | NUR ---
PATIENT DISCHARGED TO [facility]. DRESSED IN HIS OWN AVAILABLE CLOTHING, IV SALINE LOCK AND TELEMETRY REMOVED. OFF UNIT VIA W/C AT 1540. NO BELONGINGS LEFT BEHIND IN ROOM.
[2023-05-13 20:11] LABS: HEMOGLOBIN A1C 5.9 % (4.8-5.6)
== END 2023-05-09 15:40 ==
LOC: ER 18:07 → MEDS 18:08
PROVIDERS: Emergency Medicine; Internal Medicine; ADMIT Internal Medicine
DX: I95.1 Orthostatic hypotension (principal); I25.10 Atherosclerotic heart disease of native coronary artery without angina pectoris; E11.51 Type 2 diabetes mellitus with diabetic peripheral angiopathy without gangrene; I12.9 Hypertensive chronic kidney disease with stage 1 through stage 4 chronic kidney disease, or unspecified chronic kidney disease; E03.8 Other specified hypothyroidism; Z11.52 Encounter for screening for COVID-19; Z89.512 Acquired absence of left leg below knee; I48.91 Unspecified atrial fibrillation; Z88.0 Allergy status to penicillin; Z88.6 Allergy status to analgesic agent; Z91.012 Allergy to eggs; Z91.011 Allergy to milk products; D63.1 Anemia in chronic kidney disease; N18.30 Chronic kidney disease, stage 3 unspecified
CPT/HCPCS: 0241U; 36415; 70450; 71045; 71260; 80053; 82947; 83036; 84439; 84443; 84481; 84484; 85025; 85379; 85520; 85610; 85730; 93005; 93010; 96360; 96361; 96365; 96366; 97110; 97116; 97162; 97166; 97530; 97535; 99285-25; A9270; G0378; J1644; J1815; J7030; L0160; Q9967; U0002

== ENCOUNTER 2023-05-24 09:38 | Emergency (ER) | payer MEDICARE, OTHER ==
[~2023-05-24] VITALS: Ht 180.3 cm; Wt 59.0 kg
[~2023-05-24 09:38] MED LIST changes: +LISI5 PO
[2023-05-24 10:06] LABS: BASOPHILS ABSOLUTE AUTO 0.07 K/mm3 (0.00-0.23); BASOPHILS PERCENT AUTO 1 % (0-2); EOSINOPHILS PERCENT AUTO 3 % (0-6); IMMATURE GRAN ABSOLUTE AUTO 0.02 K/mm3 (0.00-0.10); IMMATURE GRAN PERCENT AUTO 0 % (0-1); LYMPHOCYTES ABSOLUTE AUTO 0.98 K/mm3 (0.84-5.20); LYMPHOCYTES PERCENT AUTO 16 % (21-46); MONOCYTES ABSOLUTE AUTO 0.32 K/mm3 (0.16-1.47); MONOCYTES PERCENT AUTO 5 % (4-13); Mean Corpuscular HGB 24.1 pg (26.0-34.0); Mean Corpuscular HGB Conc 30.4 g/dL (31.5-36.5); Mean Corpuscular Volume 79 fL (80-100); Mean Platelet Volume 10.1 fL (9.1-12.4); NEUTROPHILS ABSOLUTE AUTO 4.58 K/mm3 (1.96-9.15); NEUTROPHILS PERCENT AUTO 74 % (41-73); Platelet Count 441 K/mm3 (150-400); RDW Coefficient Variation 16.2 % (11.7-14.2); RDW Standard Deviation 46.6 fL (35.1-46.3); Red Blood Cell Count 2.16 M/mm3 (4.30-5.90); White Blood Cell Count 6.17 K/mm3 (4.00-11.30)
[2023-05-24 10:11] LABS: Hematocrit 17.1 % (37.0-53.0); Hemoglobin 5.2 g/dL (13.5-17.5)
[2023-05-24] MEDS ORDERED: ELIQUIS5 M3 PO (10:35)
[2023-05-24 10:41] LABS: Albumin, Blood 2.1 g/dL (3.4-5.0); Albumin/Globulin Ratio 0.5 (0.8-1.8); Bilirubin, Total 0.1 mg/dL (0.1-1.0); Bun/Creatinine Ratio 34.1 (12.0-20.0); Calcium, Blood 7.6 mg/dL (8.5-10.1); Creatinine, Blood 1.32 mg/dL (0.60-1.20); Globulin, Blood 4.2 g/dL (2.2-4.0); Potassium, Blood 4.2 mmol/L (3.5-5.5); Total Protein, Blood 6.3 g/dL (6.4-8.2)
[2023-05-24 12:45] VITALS: BP 119/61
== END 2023-05-24 12:48 | disposition short-term general hospital (02) ==
LOC: ER 09:38
PROVIDERS: Emergency Medicine
DX: K92.1 Melena (principal); D50.0 Iron deficiency anemia secondary to blood loss (chronic); I25.2 Old myocardial infarction; I69.934 Monoplegia of upper limb following unspecified cerebrovascular disease affecting left non-dominant side; I48.91 Unspecified atrial fibrillation; I25.10 Atherosclerotic heart disease of native coronary artery without angina pectoris; N18.30 Chronic kidney disease, stage 3 unspecified; E11.51 Type 2 diabetes mellitus with diabetic peripheral angiopathy without gangrene; E11.22 Type 2 diabetes mellitus with diabetic chronic kidney disease; F17.210 Nicotine dependence, cigarettes, uncomplicated; Z79.899 Other long term (current) drug therapy; Z79.01 Long term (current) use of anticoagulants; Z79.4 Long term (current) use of insulin; Z88.0 Allergy status to penicillin; Z88.5 Allergy status to narcotic agent; Z91.012 Allergy to eggs; Z91.011 Allergy to milk products; Z91.018 Allergy to other foods
CPT/HCPCS: 36430; 80053; 85025; 86850; 86900; 86901; 86923; 96361; 96374; 99285-25; C9113; J7030; P9016

== ENCOUNTER 2023-06-18 16:25 | Inpatient (IN) | payer MEDICARE, OTHER ==
[~2023-06-18] VITALS: Ht 180.3 cm; Wt 61.2 kg
[~2023-06-18 16:25] MED LIST changes: +ELIQUIS5 M3 PO
[2023-06-18 17:22] LABS: BASOPHILS ABSOLUTE AUTO 0.05 K/mm3 (0.00-0.23); BASOPHILS PERCENT AUTO 1 % (0-2); EOSINOPHILS ABSOLUTE AUTO 0.09 K/mm3 (0.00-0.68); EOSINOPHILS PERCENT AUTO 1 % (0-6); Hemoglobin 10.1 g/dL (13.5-17.5); IMMATURE GRAN ABSOLUTE AUTO 0.02 K/mm3 (0.00-0.10); IMMATURE GRAN PERCENT AUTO 0 % (0-1); LYMPHOCYTES ABSOLUTE AUTO 0.49 K/mm3 (0.84-5.20); LYMPHOCYTES PERCENT AUTO 6 % (21-46); MONOCYTES PERCENT AUTO 3 % (4-13); Mean Corpuscular HGB 26.2 pg (26.0-34.0); Mean Corpuscular HGB Conc 31.6 g/dL (31.5-36.5); Mean Corpuscular Volume 83 fL (80-100); Mean Platelet Volume 10.3 fL (9.1-12.4); NEUTROPHILS ABSOLUTE AUTO 7.86 K/mm3 (1.96-9.15); NEUTROPHILS PERCENT AUTO 89 % (41-73); Platelet Count 495 K/mm3 (150-400); RDW Standard Deviation 48.2 fL (35.1-46.3); Red Blood Cell Count 3.86 M/mm3 (4.30-5.90); White Blood Cell Count 8.81 K/mm3 (4.00-11.30)
[2023-06-18 17:44] LABS: Albumin, Blood 2.9 g/dL (3.4-5.0); Albumin/Globulin Ratio 0.5 (0.8-1.8); Bilirubin, Total 0.5 mg/dL (0.1-1.0); Bun/Creatinine Ratio 22.7 (12.0-20.0); Calcium, Blood 8.7 mg/dL (8.5-10.1); Creatinine, Blood 1.19 mg/dL (0.60-1.20); Globulin, Blood 5.5 g/dL (2.2-4.0); Potassium, Blood 3.7 mmol/L (3.5-5.5); Total Protein, Blood 8.4 g/dL (6.4-8.2)
[2023-06-18 18:56] LABS: Influenza A, PCR NEGATIVE (NEGATIVE); Influenza B, PCR NEGATIVE (NEGATIVE); Resp Syncytial Virus, PCR NEGATIVE (NEGATIVE); SARS-Cov-2 (COVID-19) PCR, MMC NEGATIVE (NEGATIVE)
[2023-06-18 21:31] LABS: Source, Urine Clean Catch
[2023-06-18 21:39] LABS: Appearance, Urine Hazy (Clear); Bilirubin, Urine Neg (Neg); Blood, Urine 3+ (Neg); Glucose Qualitative, Urine Neg (Neg); Ketones, Urine Neg (Neg); Leukocyte Esterase, Urine Neg (Neg); Nitrite, Urine Neg (Neg); Protein, Urine 3+ (Neg); Urobilinogen, Urine NORM (Normal)
[2023-06-18 21:47] LABS: Color, Urine Pale Yellow (P-Yellow)
[2023-06-18 21:49] LABS: Granular Casts 0-2 /lpf (0); Hyaline Casts 0-2 /lpf (0-2); Mucus Light (0-Heavy)
[2023-06-18 21:50] LABS: Bacteria Many /hpf; Squamous Epithelial Cells Few /hpf (Few)
[2023-06-19 04:14] VITALS: BP 135/84
--- NOTE | 2023-06-19 04:29 | NUR ---
PT ARRIVED TO THE UNIT VIA W/C. PT ABLE TO TRANSFER SELF FROM W/C TO HOSPITAL BED USING UPPER EXTREMETIES. PT NOT ABLE TO STAY AWAKE DURING NURSING ASSESSMENT, EVEN AFTER TAPPING ON HIS ARMS, AND AFTER OTHER CARE STAFF TRIED TO GENTLY NUDGE PT. PT ON RA, VSS. PT ONLY ABLE TO VERIFY HIS NAME AND , AND THAT HE IS AT [facility]. PT ADMITTED FOR INTRACTABLE NAUSEA AND VOMITING. PT RECEIVED IV COMPAZINE. PT APPEARS TO BE SLEEPING COMFORTABLY. RESP RATE EVEN AND UNLABORED. PT HAS AN LEFT LEG BKA FROM 2022. NO SIGNS OF PAIN/DISCOMFORT NOTED. CALL LIGHT WITHIN REACH, WCTM.
[2023-06-19 05:41] LABS: BASOPHILS ABSOLUTE AUTO 0.02 K/mm3 (0.00-0.23); BASOPHILS PERCENT AUTO 0 % (0-2); EOSINOPHILS PERCENT AUTO 0 % (0-6); Hemoglobin 7.7 g/dL (13.5-17.5); IMMATURE GRAN ABSOLUTE AUTO 0.03 K/mm3 (0.00-0.10); IMMATURE GRAN PERCENT AUTO 0 % (0-1); LYMPHOCYTES ABSOLUTE AUTO 0.32 K/mm3 (0.84-5.20); LYMPHOCYTES PERCENT AUTO 3 % (21-46); MONOCYTES ABSOLUTE AUTO 0.21 K/mm3 (0.16-1.47); MONOCYTES PERCENT AUTO 2 % (4-13); Mean Corpuscular HGB 26.1 pg (26.0-34.0); Mean Corpuscular HGB Conc 32.1 g/dL (31.5-36.5); Mean Corpuscular Volume 81 fL (80-100); Mean Platelet Volume 10.8 fL (9.1-12.4); NEUTROPHILS ABSOLUTE AUTO 9.33 K/mm3 (1.96-9.15); NEUTROPHILS PERCENT AUTO 94 % (41-73); Platelet Count 400 K/mm3 (150-400); RDW Coefficient Variation 16.1 % (11.7-14.2); RDW Standard Deviation 48.1 fL (35.1-46.3); Red Blood Cell Count 2.95 M/mm3 (4.30-5.90); White Blood Cell Count 9.91 K/mm3 (4.00-11.30)
[2023-06-19 06:06] LABS: Albumin, Blood 2.2 g/dL (3.4-5.0); Albumin/Globulin Ratio 0.5 (0.8-1.8); Bilirubin, Total 0.3 mg/dL (0.1-1.0); Bun/Creatinine Ratio 23.5 (12.0-20.0); Calcium, Blood 8.1 mg/dL (8.5-10.1); Creatinine, Blood 1.19 mg/dL (0.60-1.20); Globulin, Blood 4.3 g/dL (2.2-4.0); Potassium, Blood 4.4 mmol/L (3.5-5.5); Total Protein, Blood 6.5 g/dL (6.4-8.2)
--- NOTE | 2023-06-19 06:25 | NUR ---
PT's HEMOGLOBIN LAB RESULTS LAST NIGHT AT 1710 WAS 10.1 HEMOGLOBIN LAB RESULTS TODAY 06/19/[address] BEE THE CAREER SERVICES MANAGER HOSPITALIST WAS NOTIFIED OF THE DROP IN HEMOGLOBIN. DR. BEE WILL FOLLOW UP.
[2023-06-19 07:46] VITALS: BP 159/107
--- NOTE | 2023-06-19 10:01 | NUR ---
PATIENT SLEEPY AND DIFFICULT TO AROUSE. WHEN AWAKENED. PATIENT AGITATED AND REFUSING TO TAKE HIS MEDICATIONS. PATIENT STATING "LEAVE ME THE FUCK ALONE". DR MONTAÑO NOTIFIED OF PATIENT REFUSING TO TAKE MEDS AND NOT WILLING TO WAKE UP TO TAKE MEDS OR PARTICIPATE IN ASSESSMENT.
[2023-06-19 13:03] LABS: Hematocrit 25.7 % (37.0-53.0); Hemoglobin 8.2 g/dL (13.5-17.5)
[2023-06-19 15:41] VITALS: BP 149/91
--- NOTE | 2023-06-19 18:43 | NUR ---
SHIFT SUMMARY PATIENT MORE COOPERATIVE AT END OF SHIFT. PATIENT CONTINUES TO REFUSE TO TAKE HIS MEDICATIONS. PATIENT STATES THAT HE DOES NOT NEED ANYTHING TO HELP HIM PEE OR POOP. PATIENT STATES HE HAS REGULAR BOWEL MOVEMENTS THAT ARE SOFT. PATIENT STATES THAT HE HAS BEEN FLUSHING HIS MEDS AT REHAB BECAUSE HE DOES NOT TRUST ANYONE THERE. PATIENT HAS MIDLINE INSCISION FROM RECENT BOWEL RESECTION. STERISTRIPS AND BANDAGE COVERING AREA. PATIENT MOE HAS RECENT L BKA. PATIENT IS A DIABETIC BUT IS NON COMPLIANT WITH DIET. PATIENT DENIES ANY NAUSEA THIS SHIFT. PATIENT USING URINAL TO VOID.
[2023-06-19 20:12] VITALS: BP 144/86
[2023-06-19] MEDS ORDERED: XARELTO20 MG PO (20:30)
[2023-06-20 05:04] VITALS: BP 166/93
--- NOTE | 2023-06-20 05:05 | NUR ---
END OF SHIFT SUMMARY PT A&O x4, VSS, AFEBRILE. PT SELECTIVE ON WHICH MEDICATIONS HE WANTED TO TAKE. PT REFUSED THE BOWEL CARE MEDICATION. NO NAUSEA/VOMITING, PT DENIED PAIN. PT SLEPT THE MAJORITY OF THE SHIFT. PT VOIDING WELL, USING THE URINAL AT THE BEDSIDE. PT'S APPETITE IMPROVING. PT ABLE TO MAKE NEEDS KNOWN, CALL LIGHT WITHIN REACH, WC.
[2023-06-20 07:31] VITALS: BP 197/98
[2023-06-20 15:36] VITALS: BP 201/99
--- NOTE | 2023-06-20 19:39 | NUR ---
SHIFT SUMMARY A&O X 4, VSS HOWEVER BP IS ELEVATED. STARTED SHIFT C/O N/V W/EMESIS & MYERS, PLACED CALL TO MD, ORDERS RECEIVED FOR ONE TIME DOSES OF TORADOL & REGLAN. PT ATTEMPTED MULTIPLE TIMES TO HAVE BM ON BSC WITH LITTLE RESULTS. CONTINUED TO HAVE NAUSEA AFTER REGLAN WITH SMALL AMOUNTS OF EMESIS. PT DID NOT WANT TO TAKE MORNING MEDS D/T NAUSEA. PT ALSO C/O CP, STAT EKG ORDERED & DONE, NO CHANGES NOTED ON EKG, TROPONINS ORDERED & DONE, RESULTED NML, GI COCKTAIL ORDERED & GIVEN WITH GOOD RELIEF STATED BY PT. AFTERNOON VITALS SHOWED SBP>200. PT REQUESTED BOWEL MEDS, TOOK MEDS INTO PT AND ADMINISTERED MEDS, BOWEL MEDS & SUPPOSITORY. WITH INSERTION OF SUPPOSITORY, NO BM WAS FELT IN RECTAL VAULT. PT WAS ABLE TO KEEP MEDS DOWN. PT HAS L SOFIE & IS 2 PERSON ASSIST TO BSC WITH GB. PLAN IS FOR RETURN TO REHAB UPON DC.
[2023-06-20 23:05] VITALS: BP 201/99
[2023-06-21] VITALS (9 sets, daily range): BP systolic 137–194; BP diastolic 71–98
--- NOTE | 2023-06-21 05:28 | NUR ---
SUMMARY: PT A/OX4, IS DROWSY BUT WAKEFUL AND SPECIFIES NEEDS. HE BEGAN SHIFT NAUSEOUS W/EMESIS, NOTIFIED AND COMPAZINE RX'D AND RECEIVED PRN FOR SOME RELIEF. HE'S CONT'D TO HAVE INTERMITTENT NAUSEA BUT ONLY PHLEGM/SALIVA IS OBSERVED SINCE BEING GIVEN PRN ANTIEMETICS. HE'S INCONTINENT AND HAD X2 MEDIUM SOFT GRAINY BM'S W/ATTENDS CHANGED PRN. PT ATTEMPTS TO USE URINAL BUT TYPICALLY MISSES SO LINEN/GOWN CHANGES HAVE BEEN REQUIRED. NO ACUTE CHANGES, VSS/AFEBRILE. WCTM AND REPORT TO DAY RN.
[2023-06-21 05:49] LABS: Hematocrit 29.2 % (37.0-53.0); Hemoglobin 9.5 g/dL (13.5-17.5); Mean Corpuscular HGB 25.8 pg (26.0-34.0); Mean Corpuscular HGB Conc 32.5 g/dL (31.5-36.5); Mean Corpuscular Volume 79 fL (80-100); Mean Platelet Volume 10.8 fL (9.1-12.4); Platelet Count 455 K/mm3 (150-400); RDW Coefficient Variation 15.9 % (11.7-14.2); Red Blood Cell Count 3.68 M/mm3 (4.30-5.90); White Blood Cell Count 9.42 K/mm3 (4.00-11.30)
[2023-06-21 06:46] LABS: Bun/Creatinine Ratio 28.7 (12.0-20.0); Calcium, Blood 8.4 mg/dL (8.5-10.1); Creatinine, Blood 1.08 mg/dL (0.60-1.20); Potassium, Blood 3.9 mmol/L (3.5-5.5); Thyroid Stimulating Hormone 0.985 uIU/mL (0.360-4.800)
--- NOTE | 2023-06-21 17:44 | NUR ---
PATIENT IS ALERT AND ORIENTED AND COOPERATIVE WITH CARE. HE IS HYPERTENSIVE, COREG STARTED TODAY AND THE DOSE DOUBLED THIS AFTERNOON. DR. MONTAÑO IS AWARE OF PATIENT'S LATEST BP. PATIENT IS COMPLAINING OF INCREASED PAIN IN HIS LEFT ABDOMEN, STATES HIS STONE PAIN WENT AWAY FOR A DAY OR SO AND NOW ITS BACK WORSE THAN BEFORE. DR. MONTAÑO NOTIFIED OF THIS AND ORDERED THAT WE JUST CONTINUE TO MONITOR FOR NOW. TYLENOL GIVEN FOR THE PAIN. NAUSEA MEDS GIVEN PER EMAR. WILL CONTINUE TO MONITOR
[2023-06-22 04:11] VITALS: BP 146/79
--- NOTE | 2023-06-22 04:54 | NUR ---
END OF SHIFT SUMMARY PT SLEPT FOR THE MAJORITY OF THE SHIFT. PT C/O ABDOMINAL PAIN. PRN APAP AND COMPAZINE GIVEN WHICH WERE EFFECTIVE. PT RECEIVING IV ABX. PT CALLS APPROPRIATELY, IS ABLE TO MAKE NEEDS KNOWN. CALL LIGHT WITHIN REACH, WCTM.
[2023-06-22 07:39] VITALS: BP 164/95
[2023-06-22 12:47] LABS: SARS-Cov-2 (COVID-19) PCR, MMC NEGATIVE (NEGATIVE)
[2023-06-22] MEDS ORDERED: Carvedilol12.5 MG PO (15:22)
[2023-06-22] MEDS ORDERED: MIRALAX17 GM PO (15:23)
[2023-06-22] MEDS ORDERED: TAMS.4ER PO (15:23)
[2023-06-22] MEDS ORDERED: NITR100CA PO (15:23)
[2023-06-22] MEDS ORDERED: PANT20 PO (15:23)
[2023-06-22 15:28] VITALS: BP 179/95
--- NOTE | 2023-06-22 16:49 | NUR ---
DISCHARGE NOTE: MEDICAL TRANSPORT ARRIVED VIA WHEELCHAIR TO TAKE PATIENT BACK TO [facility]. PATIENT'S IV WAS REMOVED, BELONGINGS WERE COLLECTED, AND HE WAS TRANSFERRED WITH A GAITBELT AND 2 STAFF ASSISTANCE TO THE WHEELCHAIR. PAPERWORK AND PATIENT BELONGINGS GIVEN TO MEDICAL TRANSPORT. NO SIGNS OR SYMPTOMS OF DISTRESS WITH TRANSPORT.
== END 2023-06-22 16:55 | DRG 690 ==
LOC: ER 16:25 → MEDS 06-19 01:59 → ER 06-19 01:59 → MEDS 06-19 01:59
PROVIDERS: Internal Medicine; Student in an Organized Health Care Education/Training Program; ADMIT Internal Medicine
DX: N13.6 Pyonephrosis (principal); I48.91 Unspecified atrial fibrillation; K59.00 Constipation, unspecified; R09.02 Hypoxemia; F17.210 Nicotine dependence, cigarettes, uncomplicated; E78.5 Hyperlipidemia, unspecified; I25.10 Atherosclerotic heart disease of native coronary artery without angina pectoris; I12.9 Hypertensive chronic kidney disease with stage 1 through stage 4 chronic kidney disease, or unspecified chronic kidney disease; E11.22 Type 2 diabetes mellitus with diabetic chronic kidney disease; N18.30 Chronic kidney disease, stage 3 unspecified; D63.1 Anemia in chronic kidney disease; E11.51 Type 2 diabetes mellitus with diabetic peripheral angiopathy without gangrene; E03.9 Hypothyroidism, unspecified; R74.02 Elevation of levels of lactic acid dehydrogenase [LDH]; Z85.038 Personal history of other malignant neoplasm of large intestine; Z90.49 Acquired absence of other specified parts of digestive tract; I25.2 Old myocardial infarction; I69.334 Monoplegia of upper limb following cerebral infarction affecting left non-dominant side; Z79.4 Long term (current) use of insulin; Z89.512 Acquired absence of left leg below knee
CPT/HCPCS: 0241U; 36415; 51701; 71260; 74018; 74177; 80048; 80053; 81001; 83605; 83690; 83880; 84443; 84484; 85014; 85018; 85025; 85027; 87077; 87086; 87186; 93005; 93010; 96361-59; 96374-59; 96375; 96375-59; 96376; 96376-59; 99285-25; A9270; C9113; G0378; J0744; J0780; J1170; J1790; J1885; J2405; J2765; J3010; J3370; J7030; J7050; Q9967; U0002

== ENCOUNTER 2023-07-29 11:18 | Emergency (ER) | payer MEDICARE, OTHER ==
[~2023-07-29] VITALS: Ht 180.3 cm; Wt 55.3 kg
[~2023-07-29 11:18] MED LIST changes: +Carvedilol12.5 MG PO; +MIRALAX17 GM PO; +NITR100CA PO; +PANT20 PO; +TAMS.4ER PO; +XARELTO20 MG PO
[2023-07-29 12:06] LABS: BASOPHILS ABSOLUTE AUTO 0.07 K/mm3 (0.00-0.23); BASOPHILS PERCENT AUTO 1 % (0-2); EOSINOPHILS PERCENT AUTO 2 % (0-6); Hematocrit 37.5 % (37.0-53.0); IMMATURE GRAN ABSOLUTE AUTO 0.01 K/mm3 (0.00-0.10); IMMATURE GRAN PERCENT AUTO 0 % (0-1); LYMPHOCYTES ABSOLUTE AUTO 0.74 K/mm3 (0.84-5.20); LYMPHOCYTES PERCENT AUTO 15 % (21-46); MONOCYTES ABSOLUTE AUTO 0.26 K/mm3 (0.16-1.47); MONOCYTES PERCENT AUTO 5 % (4-13); Mean Corpuscular HGB 24.4 pg (26.0-34.0); Mean Corpuscular Volume 76 fL (80-100); NEUTROPHILS ABSOLUTE AUTO 3.74 K/mm3 (1.96-9.15); NEUTROPHILS PERCENT AUTO 76 % (41-73); NRBC ABSOLUTE 0.02 K/mm3 (0.00-0.02); NRBC Auto 0.4 /100 WBC (0.0-0.2); RDW Coefficient Variation 15.1 % (11.7-14.2); RDW Standard Deviation 41.6 fL (35.1-46.3); Red Blood Cell Count 4.92 M/mm3 (4.30-5.90); White Blood Cell Count 4.92 K/mm3 (4.00-11.30)
[2023-07-29 12:26] LABS: Albumin, Blood 3.1 g/dL (3.4-5.0); Albumin/Globulin Ratio 0.7 (0.8-1.8); Bilirubin, Total 0.7 mg/dL (0.1-1.0); Bun/Creatinine Ratio 20.7 (12.0-20.0); Calcium, Blood 8.8 mg/dL (8.5-10.1); Creatinine, Blood 0.96 mg/dL (0.60-1.20); Globulin, Blood 4.7 g/dL (2.2-4.0); Potassium, Blood 3.8 mmol/L (3.5-5.5); Total Protein, Blood 7.8 g/dL (6.4-8.2)
[2023-07-29 13:19] LABS: Platelet Count 194 K/mm3 (150-400)
[2023-07-29 19:30] VITALS: BP 172/98
== END 2023-07-29 19:40 | disposition home or self-care (01) ==
LOC: ER 11:18
PROVIDERS: Physician Assistant
DX: S20.229A Contusion of unspecified back wall of thorax, initial encounter (principal); R53.81 Other malaise; R64 Cachexia; R29.6 Repeated falls; I48.91 Unspecified atrial fibrillation; Z87.891 Personal history of nicotine dependence; W18.11XA Fall from or off toilet without subsequent striking against object, initial encounter
CPT/HCPCS: 36415; 72070; 80053; 83690; 85025; 99285-25

== ENCOUNTER 2023-11-27 17:21 | Observation (INO) | payer MEDICARE, OTHER ==
[~2023-11-27] VITALS: Ht 180.3 cm; Wt 66.1 kg
[2023-11-27 21:05] LABS: BASOPHILS ABSOLUTE AUTO 0.07 K/mm3 (0.00-0.23); BASOPHILS PERCENT AUTO 1 % (0-2); EOSINOPHILS ABSOLUTE AUTO 0.21 K/mm3 (0.00-0.68); EOSINOPHILS PERCENT AUTO 3 % (0-6); Hematocrit 38.8 % (37.0-53.0); Hemoglobin 12.3 g/dL (13.5-17.5); IMMATURE GRAN ABSOLUTE AUTO 0.02 K/mm3 (0.00-0.10); IMMATURE GRAN PERCENT AUTO 0 % (0-1); LYMPHOCYTES ABSOLUTE AUTO 1.01 K/mm3 (0.84-5.20); LYMPHOCYTES PERCENT AUTO 14 % (21-46); MONOCYTES ABSOLUTE AUTO 0.41 K/mm3 (0.16-1.47); MONOCYTES PERCENT AUTO 6 % (4-13); Mean Corpuscular HGB 25.3 pg (26.0-34.0); Mean Corpuscular HGB Conc 31.7 g/dL (31.5-36.5); Mean Corpuscular Volume 80 fL (80-100); Mean Platelet Volume 10.3 fL (9.1-12.4); NEUTROPHILS ABSOLUTE AUTO 5.77 K/mm3 (1.96-9.15); NEUTROPHILS PERCENT AUTO 77 % (41-73); Platelet Count 343 K/mm3 (150-400); RDW Coefficient Variation 14.9 % (11.7-14.2); Red Blood Cell Count 4.87 M/mm3 (4.30-5.90); White Blood Cell Count 7.49 K/mm3 (4.00-11.30)
[2023-11-27 21:35] LABS: Albumin, Blood 3.2 g/dL (3.4-5.0); Albumin/Globulin Ratio 0.6 (0.8-1.8); Bilirubin, Total 0.7 mg/dL (0.1-1.0); Bun/Creatinine Ratio 24.3 (12.0-20.0); Calcium, Blood 9.4 mg/dL (8.5-10.1); Creatinine, Blood 1.4 mg/dL (0.60-1.20); Globulin, Blood 5.2 g/dL (2.2-4.0); Potassium, Blood 4.6 mmol/L (3.5-5.5); Total Protein, Blood 8.4 g/dL (6.4-8.2)
[2023-11-27] MEDS ORDERED: Acetaminophen 325 MG TABLET PO PRN ×2 (22:30→23:30)
[2023-11-27] MEDS ORDERED: Ondansetron HCl 2 MG / ML 2ML Vial IV PRN (22:30)
[2023-11-27] MEDS ORDERED: NS 1,000 ML IV ONE (22:30)
[2023-11-27] MEDS ORDERED: FentaNYL Citrate 50 MCG/ML 2 ML Injection IV PRN ×2 (22:30→23:30)
[2023-11-27] MEDS ORDERED: Clindamycin 900mg in D5W 50ML 50 ML IV SCH (22:46)
[2023-11-27 23:08] LABS: International Normalized Ratio 1.01; Prothrombin Time Results 10.8 Sec (9.7-11.5)
--- NOTE | 2023-11-27 23:40 | NUR ---
ARRIVAL TO UNIT PT TRANSFERED TO SURGICAL FROM ER. A/O X4. IN ROOM. PT USED URINAL INDEPENDENTLY. REFUSING SCD ON R LEG. PT DENIES PAIN AND NAUSEA, REDNESS AND SWELLING NOTED TO R GREAT TOE. PT INSTRUCTED ON USE OF CALL LIGHT.
[2023-11-27 23:45] VITALS: BP 150/92
[2023-11-28 04:30] VITALS: BP 151/77
--- NOTE | 2023-11-28 04:30 | NUR ---
SHIFT SUMMARY PT IS A/O X4, BUT AND PT MAKING INNAPROPRIATE SEXUAL COMMENTS TO STAFF, NURSING HOG COUNTER CONSULTED W/ PT AND FAMILY MEMBER REGARDING BEHAVIOR. VSS. PT DENIES PAIN AND NAUSEA, TELE IN PLACE. NO CHANGE IN R GREAT TOE NOTED, REDNESS AND SWELLING UNCHANGED. IV FLUIDS RUNNING ORDERED. PT CALLS APPROPRIATELY.
[2023-11-28 06:03] LABS: BASOPHILS ABSOLUTE AUTO 0.05 K/mm3 (0.00-0.23); BASOPHILS PERCENT AUTO 1 % (0-2); EOSINOPHILS ABSOLUTE AUTO 0.17 K/mm3 (0.00-0.68); EOSINOPHILS PERCENT AUTO 3 % (0-6); Hematocrit 32.1 % (37.0-53.0); Hemoglobin 10.4 g/dL (13.5-17.5); IMMATURE GRAN ABSOLUTE AUTO 0.02 K/mm3 (0.00-0.10); IMMATURE GRAN PERCENT AUTO 0 % (0-1); LYMPHOCYTES PERCENT AUTO 13 % (21-46); MONOCYTES ABSOLUTE AUTO 0.57 K/mm3 (0.16-1.47); MONOCYTES PERCENT AUTO 8 % (4-13); Mean Corpuscular HGB 25.6 pg (26.0-34.0); Mean Corpuscular HGB Conc 32.4 g/dL (31.5-36.5); Mean Corpuscular Volume 79 fL (80-100); Mean Platelet Volume 10.2 fL (9.1-12.4); NEUTROPHILS ABSOLUTE AUTO 5.11 K/mm3 (1.96-9.15); NEUTROPHILS PERCENT AUTO 75 % (41-73); Platelet Count 245 K/mm3 (150-400); RDW Coefficient Variation 14.8 % (11.7-14.2); RDW Standard Deviation 43.1 fL (35.1-46.3); Red Blood Cell Count 4.06 M/mm3 (4.30-5.90); White Blood Cell Count 6.82 K/mm3 (4.00-11.30)
[2023-11-28 06:35] LABS: Albumin, Blood 2.6 g/dL (3.4-5.0); Albumin/Globulin Ratio 0.6 (0.8-1.8); Bilirubin, Total 0.6 mg/dL (0.1-1.0); Calcium, Blood 8.6 mg/dL (8.5-10.1); Creatinine, Blood 1.31 mg/dL (0.60-1.20); Globulin, Blood 4.2 g/dL (2.2-4.0); Potassium, Blood 4.2 mmol/L (3.5-5.5); Total Protein, Blood 6.8 g/dL (6.4-8.2)
--- NOTE | 2023-11-28 07:27 | NUR ---
DR GUPTA WAS AT BEDSIDE TO CHECK PTS R FOOT THIS AM. I ADVISED HIM OF PT HX AFIB,CURRENTLY REPORTED AFIB.PT REPORTED HE DOES NOT TAKE MEDS FOR THIS AND CURRENT RATE IS CONTROLLED. PENDING CX WITH DR SHEPPARD.
[2023-11-28] MEDS ORDERED: Insulin Human Lispro 100 Units/ML 3ML Syringe SC SCH ×2 (07:30)
[2023-11-28 08:26] VITALS: BP 158/76
[2023-11-28] MEDS ORDERED: MASOPHEN325 M3 PO (09:36)
[2023-11-28] MEDS ORDERED: VISBIOME 112.51 EACH PO (09:37)
[2023-11-28] MEDS ORDERED: Carvedilol12.5 MG PO (09:38)
[2023-11-28] MEDS ORDERED: Cleocin HCl150 MG PO (09:39)
[2023-11-28] MEDS ORDERED: LISI20 PO (09:40)
[2023-11-28] MEDS ORDERED: NITR.4SL SL (09:42)
[2023-11-28] MEDS ORDERED: XARELTO20 MG PO (09:43)
[2023-11-28] MEDS ORDERED: PANT20 PO (09:43)
[2023-11-28] MEDS ORDERED: TAMS.4ER PO (09:44)
[2023-11-28] MEDS ORDERED: Clindamycin HCl 150 MG Cap PO ONE (12:00)
--- NOTE | 2023-11-28 15:08 | NUR ---
DISCHARGE PT AND LEFT WITH WC TRANSPORT TO GO TO [facility] TO SUBSTATION OPERATOR APPRENTICE ABX (BOTH PARTIES REP THEY WILL NOT BE PICKING UP ANY OF THE OTHER MEDS), WITH ALL PERSONAL POSSESSIONS INCLUDING DC PACKET AND THEN WILL BE TAKEN TO THEIR HOME. DC INS PROVIDED, THEY REP UNDERSTANDING TAKING ABX PER SCRIPT AND FU WITH DR DASH. PT A&OX4, TEDDY PO, VOIDING/URINAL, TRANSFERRED SELF TO FROM BED, DENIES PAIN, IV DC'D.
== END 2023-11-28 14:08 | disposition home or self-care (01) ==
LOC: ER 17:21 → SURS 17:22 → ER 22:26 → SURS 22:26 → ER 23:18 → SURS 23:35
PROVIDERS: Emergency Medicine; ADMIT Internal Medicine
DX: L03.031 Cellulitis of right toe (principal); E11.69 Type 2 diabetes mellitus with other specified complication; M86.8X7 Other osteomyelitis, ankle and foot; E78.5 Hyperlipidemia, unspecified; I25.10 Atherosclerotic heart disease of native coronary artery without angina pectoris; E11.22 Type 2 diabetes mellitus with diabetic chronic kidney disease; N18.30 Chronic kidney disease, stage 3 unspecified; E11.51 Type 2 diabetes mellitus with diabetic peripheral angiopathy without gangrene; Z89.421 Acquired absence of other right toe(s); Z89.512 Acquired absence of left leg below knee; Z88.0 Allergy status to penicillin; Z88.8 Allergy status to other drugs, medicaments and biological substances; Z91.011 Allergy to milk products; I48.91 Unspecified atrial fibrillation
CPT/HCPCS: 36415; 73630; 80053; 82947; 83880; 85025; 85610; 99284-25; A9270; G0378; J7030

== ENCOUNTER 2024-01-06 02:50 | Day surgery (SDC) | payer MEDICARE, OTHER ==
[~2024-01-06 02:50] MED LIST changes: +Cleocin HCl150 MG PO; +LISI20 PO; +MASOPHEN325 M3 PO; +VISBIOME 112.51 EACH PO
== END 2024-01-06 22:55 | disposition home or self-care (01) ==
LOC: WOUND 02:50
DX: E11.621 Type 2 diabetes mellitus with foot ulcer (principal); L97.512 Non-pressure chronic ulcer of other part of right foot with fat layer exposed; E11.51 Type 2 diabetes mellitus with diabetic peripheral angiopathy without gangrene; E11.59 Type 2 diabetes mellitus with other circulatory complications; M86.171 Other acute osteomyelitis, right ankle and foot; E11.40 Type 2 diabetes mellitus with diabetic neuropathy, unspecified; F17.210 Nicotine dependence, cigarettes, uncomplicated; I48.91 Unspecified atrial fibrillation; I25.10 Atherosclerotic heart disease of native coronary artery without angina pectoris; I25.2 Old myocardial infarction; E78.5 Hyperlipidemia, unspecified; Z91.012 Allergy to eggs; Z88.0 Allergy status to penicillin
CPT/HCPCS: G0463

== ENCOUNTER 2024-06-09 11:00 | Emergency (ER) | payer MEDICARE, OTHER ==
[~2024-06-09] VITALS: Ht 180.3 cm; Wt 68.0 kg
[2024-06-09] MEDS ORDERED: Lactated Ringer's 1,000 ML IV ONE (11:40)
[2024-06-09 11:57] LABS: BASOPHILS ABSOLUTE AUTO 0.06 K/mm3 (0.00-0.23); BASOPHILS PERCENT AUTO 1 % (0-2); EOSINOPHILS ABSOLUTE AUTO 0.18 K/mm3 (0.00-0.68); EOSINOPHILS PERCENT AUTO 4 % (0-6); Hemoglobin 13.3 g/dL (13.5-17.5); IMMATURE GRAN ABSOLUTE AUTO 0.01 K/mm3 (0.00-0.10); IMMATURE GRAN PERCENT AUTO 0 % (0-1); LYMPHOCYTES ABSOLUTE AUTO 0.65 K/mm3 (0.84-5.20); LYMPHOCYTES PERCENT AUTO 13 % (21-46); MONOCYTES PERCENT AUTO 6 % (4-13); Mean Corpuscular HGB Conc 33.3 g/dL (31.5-36.5); Mean Corpuscular Volume 81 fL (80-100); Mean Platelet Volume 10.6 fL (9.1-12.4); NEUTROPHILS ABSOLUTE AUTO 3.96 K/mm3 (1.96-9.15); NEUTROPHILS PERCENT AUTO 77 % (41-73); Platelet Count 242 K/mm3 (150-400); RDW Coefficient Variation 13.7 % (11.7-14.2); Red Blood Cell Count 4.93 M/mm3 (4.30-5.90); White Blood Cell Count 5.16 K/mm3 (4.00-11.30)
[2024-06-09 12:08] LABS: Albumin, Blood 2.7 g/dL (3.4-5.0); Albumin/Globulin Ratio 0.7 (0.8-1.8); Bilirubin, Total 0.8 mg/dL (0.1-1.0); Bun/Creatinine Ratio 15.7 (12.0-20.0); Calcium, Blood 8.9 mg/dL (8.5-10.1); Creatinine, Blood 1.4 mg/dL (0.60-1.20); Magnesium, Blood 2.4 mg/dL (1.6-2.4); Potassium, Blood 4.1 mmol/L (3.5-5.5); Total Protein, Blood 6.7 g/dL (6.4-8.2)
[2024-06-09 13:20] LABS: Source, Urine Clean Catch
[2024-06-09 13:22] LABS: Appearance, Urine Cloudy (Clear); Bilirubin, Urine Neg (Neg); Blood, Urine 3+ (Neg); Color, Urine Yellow (P-Yellow); Glucose Qualitative, Urine Neg (Neg); Ketones, Urine Neg (Neg); Leukocyte Esterase, Urine 3+ (Neg); Nitrite, Urine Neg (Neg); Protein, Urine 4+ (Neg); Urobilinogen, Urine NORM (Normal)
[2024-06-09 13:30] LABS: Bacteria Many /hpf; Squamous Epithelial Cells Few /hpf (Few); White Blood Cells, Urine TNTC /hpf (0-5)
[2024-06-09 13:37] LABS: CORONAVIRUS COVID-19 AG Negative (NEGATIVE); INFLUENZA A AG Negative (NEGATIVE); INFLUENZA B AG Negative (NEGATIVE)
[2024-06-09 14:00] VITALS: BP 191/106
[2024-06-09] MEDS ORDERED: Cephalexin Monohydrate 500 MG Cap PO ONE (14:35)
[2024-06-09] MEDS ORDERED: CEPH500 PO (14:37)
[2024-06-10] MEDS ORDERED: AZIT250 PO (17:24)
== END 2024-06-09 15:37 | disposition home or self-care (01) ==
LOC: ER 11:00
PROVIDERS: Student in an Organized Health Care Education/Training Program
DX: J18.9 Pneumonia, unspecified organism (principal); N30.00 Acute cystitis without hematuria; N39.0 Urinary tract infection, site not specified; R53.1 Weakness; E11.22 Type 2 diabetes mellitus with diabetic chronic kidney disease; N18.30 Chronic kidney disease, stage 3 unspecified; E78.5 Hyperlipidemia, unspecified; I48.91 Unspecified atrial fibrillation; F17.210 Nicotine dependence, cigarettes, uncomplicated; Z86.73 Personal history of transient ischemic attack (TIA), and cerebral infarction without residual deficits; Z79.899 Other long term (current) drug therapy; Z88.0 Allergy status to penicillin; Z88.5 Allergy status to narcotic agent; Z91.011 Allergy to milk products
CPT/HCPCS: 70450; 71045; 80053; 81001; 82550; 83735; 83880; 84484; 85025; 87086; 87428-QW; 93005; 93010; 96360; 96361; 99285-25; A9270; J7120

== ENCOUNTER 2024-07-27 17:46 | Emergency (ER) | payer MEDICARE, OTHER ==
[~2024-07-27] VITALS: Ht 180.3 cm; Wt 68.0 kg
[~2024-07-27 17:46] MED LIST changes: +AZIT250 PO; +CEPH500 PO
[2024-07-27 18:17] LABS: BASOPHILS ABSOLUTE AUTO 0.07 K/mm3 (0.00-0.23); BASOPHILS PERCENT AUTO 1 % (0-2); EOSINOPHILS ABSOLUTE AUTO 0.24 K/mm3 (0.00-0.68); EOSINOPHILS PERCENT AUTO 4 % (0-6); Hematocrit 37.6 % (37.0-53.0); Hemoglobin 12.5 g/dL (13.5-17.5); IMMATURE GRAN ABSOLUTE AUTO 0.01 K/mm3 (0.00-0.10); IMMATURE GRAN PERCENT AUTO 0 % (0-1); LYMPHOCYTES ABSOLUTE AUTO 0.67 K/mm3 (0.84-5.20); LYMPHOCYTES PERCENT AUTO 11 % (21-46); MONOCYTES ABSOLUTE AUTO 0.26 K/mm3 (0.16-1.47); MONOCYTES PERCENT AUTO 4 % (4-13); Mean Corpuscular HGB 27.3 pg (26.0-34.0); Mean Corpuscular HGB Conc 33.2 g/dL (31.5-36.5); Mean Corpuscular Volume 82 fL (80-100); Mean Platelet Volume 10.3 fL (9.1-12.4); NEUTROPHILS ABSOLUTE AUTO 4.64 K/mm3 (1.96-9.15); NEUTROPHILS PERCENT AUTO 79 % (41-73); Platelet Count 238 K/mm3 (150-400); RDW Coefficient Variation 13.8 % (11.7-14.2); RDW Standard Deviation 40.8 fL (35.1-46.3); Red Blood Cell Count 4.58 M/mm3 (4.30-5.90); White Blood Cell Count 5.89 K/mm3 (4.00-11.30)
[2024-07-27 18:38] LABS: Albumin, Blood 2.6 g/dL (3.4-5.0); Albumin/Globulin Ratio 0.6 (0.8-1.8); Bilirubin, Total 0.8 mg/dL (0.1-1.0); Bun/Creatinine Ratio 18.7 (12.0-20.0); Calcium, Blood 8.5 mg/dL (8.5-10.1); Creatinine, Blood 1.34 mg/dL (0.60-1.20); Potassium, Blood 4.8 mmol/L (3.5-5.5); Total Protein, Blood 6.6 g/dL (6.4-8.2)
[2024-07-27 19:25] VITALS: BP 211/112
[2024-07-27 19:28] LABS: Source, Urine Voided
[2024-07-27 19:37] LABS: Appearance, Urine Cloudy (Clear); Bilirubin, Urine Neg (Neg); Blood, Urine 4+ (Neg); Glucose Qualitative, Urine Neg (Neg); Ketones, Urine Neg (Neg); Leukocyte Esterase, Urine 3+ (Neg); Nitrite, Urine Neg (Neg); Protein, Urine 4+ (Neg); Specific Gravity, Urine 1.015 (1.003-1.022); Urobilinogen, Urine NORM (Normal)
[2024-07-27 19:44] LABS: Color, Urine Pale Yellow (P-Yellow)
[2024-07-27 19:45] LABS: Bacteria Many /hpf; Squamous Epithelial Cells Rare /hpf (Few); White Blood Cells, Urine TNTC /hpf (0-5)
[2024-07-27] MEDS ORDERED: Trimethoprim/Sulfamethoxazole DS Tab PO ONE (20:00)
[2024-07-27] MEDS ORDERED: CefTRIAXone Sodium 1,000 MG in NS 50 ML IV ONE (20:40)
[2024-07-27] MEDS ORDERED: Magnesium Citr296 ML PO (20:46)
[2024-07-27] MEDS ORDERED: CEPH500 PO (20:46)
[2024-07-27] MEDS ORDERED: Magic Bullet10 MG PR (20:46)
== END 2024-07-27 20:58 | disposition home or self-care (01) ==
LOC: ER 17:46
PROVIDERS: Emergency Medicine
DX: N39.0 Urinary tract infection, site not specified (principal); K59.00 Constipation, unspecified; E11.22 Type 2 diabetes mellitus with diabetic chronic kidney disease; N18.30 Chronic kidney disease, stage 3 unspecified; E78.5 Hyperlipidemia, unspecified; I48.91 Unspecified atrial fibrillation; F17.210 Nicotine dependence, cigarettes, uncomplicated; Z88.1 Allergy status to other antibiotic agents; Z88.5 Allergy status to narcotic agent; Z91.011 Allergy to milk products; Z79.899 Other long term (current) drug therapy
CPT/HCPCS: 71045; 74177; 80053; 81001; 83690; 85025; 87086; 96374; 99284-25; A9270; J0696; Q9967

== ENCOUNTER → 2024-08-18 | Outpatient (CLI) | payer MEDICARE, OTHER ==
[~2024-08-18] MED LIST changes: +Magic Bullet10 MG PR; +Magnesium Citr296 ML PO
== END ==
LOC: LAB SHORT 17:31 → LAB 17:31
DX: N30.01 Acute cystitis with hematuria (principal); R82.90 Unspecified abnormal findings in urine
CPT/HCPCS: 87086

== ENCOUNTER 2024-09-22 21:42 | Emergency (ER) | payer MEDICARE, OTHER ==
[~2024-09-22] VITALS: Ht 180.3 cm; Wt 72.6 kg
[2024-09-22] MEDS ORDERED: Carvedilol 6.25 MG Tab PO ONE (21:55)
[2024-09-22 21:59] LABS: BASOPHILS ABSOLUTE AUTO 0.06 K/mm3 (0.00-0.23); BASOPHILS PERCENT AUTO 1 % (0-2); EOSINOPHILS PERCENT AUTO 9 % (0-6); Hematocrit 37.5 % (37.0-53.0); Hemoglobin 12.8 g/dL (13.5-17.5); IMMATURE GRAN ABSOLUTE AUTO 0.01 K/mm3 (0.00-0.10); IMMATURE GRAN PERCENT AUTO 0 % (0-1); LYMPHOCYTES ABSOLUTE AUTO 0.54 K/mm3 (0.84-5.20); LYMPHOCYTES PERCENT AUTO 10 % (21-46); MONOCYTES ABSOLUTE AUTO 0.47 K/mm3 (0.16-1.47); MONOCYTES PERCENT AUTO 9 % (4-13); Mean Corpuscular HGB 27.6 pg (26.0-34.0); Mean Corpuscular HGB Conc 34.1 g/dL (31.5-36.5); Mean Corpuscular Volume 81 fL (80-100); Mean Platelet Volume 10.5 fL (9.1-12.4); NEUTROPHILS ABSOLUTE AUTO 3.82 K/mm3 (1.96-9.15); NEUTROPHILS PERCENT AUTO 71 % (41-73); Platelet Count 263 K/mm3 (150-400); RDW Coefficient Variation 13.6 % (11.7-14.2); RDW Standard Deviation 39.8 fL (35.1-46.3); Red Blood Cell Count 4.63 M/mm3 (4.30-5.90)
[2024-09-22 22:18] LABS: Bun/Creatinine Ratio 20.4 (12.0-20.0); Creatinine, Blood 1.37 mg/dL (0.60-1.20); Potassium, Blood 4.4 mmol/L (3.5-5.5)
[2024-09-22 22:42] LABS: Influenza A, PCR NEGATIVE (NEGATIVE); Influenza B, PCR NEGATIVE (NEGATIVE); Resp Syncytial Virus, PCR NEGATIVE (NEGATIVE); SARS-Cov-2 (COVID-19) PCR, MMC NEGATIVE (NEGATIVE)
[2024-09-23] MEDS ORDERED: LEVOFLOXACIN250 M9 PO (00:39)
[2024-09-23] MEDS ORDERED: LevoFLOXacin 750 MG Tab PO ONE (00:40)
[2024-09-23] MEDS ORDERED: Carvedilol12.5 MG PO (00:40)
[2024-09-23 01:24] VITALS: BP 184/91
== END 2024-09-23 01:32 | disposition home or self-care (01) ==
LOC: ER 21:42
PROVIDERS: Emergency Medicine
DX: J18.9 Pneumonia, unspecified organism (principal); E11.9 Type 2 diabetes mellitus without complications; N18.30 Chronic kidney disease, stage 3 unspecified; I25.2 Old myocardial infarction; I48.91 Unspecified atrial fibrillation; F17.210 Nicotine dependence, cigarettes, uncomplicated
CPT/HCPCS: 0241U; 71045; 80048; 83880; 84484; 85025; 93005; 93010; 99285-25; A9270

== ENCOUNTER 2025-01-04 15:00 | Emergency (ER) | payer MEDICARE, OTHER ==
[~2025-01-04] VITALS: Ht 177.8 cm; Wt 52.2 kg
[~2025-01-04 15:00] MED LIST changes: +LEVOFLOXACIN250 M9 PO
[2025-01-04 15:44] LABS: BASOPHILS ABSOLUTE AUTO 0.07 K/mm3 (0.00-0.23); BASOPHILS PERCENT AUTO 1 % (0-2); EOSINOPHILS ABSOLUTE AUTO 0.17 K/mm3 (0.00-0.68); EOSINOPHILS PERCENT AUTO 3 % (0-6); Hematocrit 39.3 % (37.0-53.0); Hemoglobin 13.0 g/dL (13.5-17.5); IMMATURE GRAN ABSOLUTE AUTO 0.03 K/mm3 (0.00-0.10); IMMATURE GRAN PERCENT AUTO 1 % (0-1); LYMPHOCYTES ABSOLUTE AUTO 0.76 K/mm3 (0.84-5.20); LYMPHOCYTES PERCENT AUTO 12 % (21-46); MONOCYTES ABSOLUTE AUTO 0.31 K/mm3 (0.16-1.47); MONOCYTES PERCENT AUTO 5 % (4-13); Mean Corpuscular HGB Conc 33.1 g/dL (31.5-36.5); Mean Corpuscular Volume 82 fL (80-100); NEUTROPHILS ABSOLUTE AUTO 5.04 K/mm3 (1.96-9.15); NEUTROPHILS PERCENT AUTO 79 % (41-73); NRBC ABSOLUTE 0.00 K/mm3 (0.00-0.02); NRBC Auto 0.0 /100 WBC (0.0-0.2); Platelet Count 293 K/mm3 (150-400); RDW Coefficient Variation 13.5 % (11.7-14.2); RDW Standard Deviation 40.1 fL (35.1-46.3)
[2025-01-04 15:57] LABS: Alanine Aminotransfer (ALT/SGP 8 U/L (12-78); Albumin, Blood 2.5 g/dL (3.4-5.0); Albumin/Globulin Ratio 0.6 (0.8-1.8); Anion Gap 9 mmol/L (3-11); Aspartate Aminotrans (AST/SGOT 14 U/L (12-37); Bilirubin, Total 0.8 mg/dL (0.1-1.0); Blood Urea Nitrogen 28 mg/dL (8-24); CO2, Blood 25 mmol/L (21-32); Calcium, Blood 8.3 mg/dL (8.5-10.1); Chloride, Blood 105 mmol/L (98-108); Creatinine, Blood 1.58 mg/dL (0.60-1.20); Ethanol (Alcohol), Blood, Med <3 mg/dL; Globulin, Blood 4.2 g/dL (2.2-4.0); Glucose, Blood 147 mg/dL (70-99); Potassium, Blood 4.7 mmol/L (3.5-5.5); Sodium, Blood 134 mmol/L (136-145); Total Protein, Blood 6.7 g/dL (6.4-8.2)
[2025-01-04 18:01] VITALS: BP 173/113
== END 2025-01-04 17:57 | disposition home or self-care (01) ==
LOC: ER 15:00
PROVIDERS: Emergency Medicine
DX: E11.65 Type 2 diabetes mellitus with hyperglycemia (principal); E11.22 Type 2 diabetes mellitus with diabetic chronic kidney disease; N18.30 Chronic kidney disease, stage 3 unspecified; E11.40 Type 2 diabetes mellitus with diabetic neuropathy, unspecified; I25.10 Atherosclerotic heart disease of native coronary artery without angina pectoris; I69.398 Other sequelae of cerebral infarction; I25.2 Old myocardial infarction; E78.5 Hyperlipidemia, unspecified; I48.91 Unspecified atrial fibrillation; F17.210 Nicotine dependence, cigarettes, uncomplicated; Z89.512 Acquired absence of left leg below knee; Z88.0 Allergy status to penicillin; Z88.5 Allergy status to narcotic agent; Z91.011 Allergy to milk products; Z79.899 Other long term (current) drug therapy
CPT/HCPCS: 80053; 80320; 85025; 93005; 93010; 99285-25

== ENCOUNTER 2025-01-05 13:59 | Emergency (ER) | payer MEDICARE, OTHER ==
[~2025-01-05] VITALS: Ht 162.6 cm; Wt 72.6 kg
[2025-01-05 14:32] LABS: BASOPHILS ABSOLUTE AUTO 0.03 K/mm3 (0.00-0.23); BASOPHILS PERCENT AUTO 1 % (0-2); EOSINOPHILS ABSOLUTE AUTO 0.06 K/mm3 (0.00-0.68); EOSINOPHILS PERCENT AUTO 1 % (0-6); Hematocrit 33.4 % (37.0-53.0); Hemoglobin 11.2 g/dL (13.5-17.5); IMMATURE GRAN ABSOLUTE AUTO 0.01 K/mm3 (0.00-0.10); IMMATURE GRAN PERCENT AUTO 0 % (0-1); LYMPHOCYTES ABSOLUTE AUTO 0.53 K/mm3 (0.84-5.20); LYMPHOCYTES PERCENT AUTO 9 % (21-46); MONOCYTES ABSOLUTE AUTO 0.30 K/mm3 (0.16-1.47); MONOCYTES PERCENT AUTO 5 % (4-13); Mean Corpuscular HGB Conc 33.5 g/dL (31.5-36.5); Mean Corpuscular Volume 82 fL (80-100); NEUTROPHILS ABSOLUTE AUTO 4.69 K/mm3 (1.96-9.15); NEUTROPHILS PERCENT AUTO 84 % (41-73); NRBC ABSOLUTE 0.00 K/mm3 (0.00-0.02); NRBC Auto 0.0 /100 WBC (0.0-0.2); Platelet Count 245 K/mm3 (150-400); RDW Coefficient Variation 13.2 % (11.7-14.2); RDW Standard Deviation 39.1 fL (35.1-46.3)
[2025-01-05 14:44] LABS: Alanine Aminotransfer (ALT/SGP 8.0 U/L (12-78); Albumin, Blood 1.9 g/dL (3.4-5.0); Albumin/Globulin Ratio 0.5 (0.8-1.8); Anion Gap 10.0 mmol/L (3-11); Aspartate Aminotrans (AST/SGOT 11.0 U/L (12-37); Bilirubin, Total 0.9 mg/dL (0.1-1.0); Blood Urea Nitrogen 19.0 mg/dL (8-24); CO2, Blood 18.0 mmol/L (21-32); Calcium, Blood 6.6 mg/dL (8.5-10.1); Chloride, Blood 111.0 mmol/L (98-108); Creatinine, Blood 1.19 mg/dL (0.60-1.20); Globulin, Blood 3.7 g/dL (2.2-4.0); Glucose, Blood 102.0 mg/dL (70-99); Potassium, Blood 3.9 mmol/L (3.5-5.5); Sodium, Blood 135.0 mmol/L (136-145); Total Protein, Blood 5.6 g/dL (6.4-8.2)
[2025-01-05] MEDS ORDERED: NS 500 ML IV SCH (16:10)
[2025-01-05 19:31] VITALS: BP 191/97
== END 2025-01-05 21:26 | disposition home or self-care (01) ==
LOC: ER 13:59
PROVIDERS: Emergency Medicine
DX: E83.51 Hypocalcemia (principal); E11.22 Type 2 diabetes mellitus with diabetic chronic kidney disease; N18.30 Chronic kidney disease, stage 3 unspecified; E78.5 Hyperlipidemia, unspecified; E11.51 Type 2 diabetes mellitus with diabetic peripheral angiopathy without gangrene; Z79.899 Other long term (current) drug therapy; Z88.0 Allergy status to penicillin; Z88.5 Allergy status to narcotic agent; Z91.011 Allergy to milk products
CPT/HCPCS: 80053; 80320; 82330; 85025; 99285

== ENCOUNTER 2025-01-08 10:32 | Emergency (ER) | payer MEDICARE, OTHER ==
[~2025-01-08] VITALS: Ht 180.3 cm; Wt 72.6 kg
[2025-01-08 11:04] LABS: BASOPHILS ABSOLUTE AUTO 0.09 K/mm3 (0.00-0.23); BASOPHILS PERCENT AUTO 2 % (0-2); EOSINOPHILS ABSOLUTE AUTO 0.27 K/mm3 (0.00-0.68); EOSINOPHILS PERCENT AUTO 5 % (0-6); Hematocrit 38.2 % (37.0-53.0); Hemoglobin 12.4 g/dL (13.5-17.5); IMMATURE GRAN ABSOLUTE AUTO 0.01 K/mm3 (0.00-0.10); IMMATURE GRAN PERCENT AUTO 0 % (0-1); LYMPHOCYTES ABSOLUTE AUTO 0.74 K/mm3 (0.84-5.20); LYMPHOCYTES PERCENT AUTO 13 % (21-46); MONOCYTES ABSOLUTE AUTO 0.38 K/mm3 (0.16-1.47); MONOCYTES PERCENT AUTO 7 % (4-13); Mean Corpuscular HGB Conc 32.5 g/dL (31.5-36.5); Mean Corpuscular Volume 83 fL (80-100); NEUTROPHILS ABSOLUTE AUTO 4.03 K/mm3 (1.96-9.15); NEUTROPHILS PERCENT AUTO 73 % (41-73); NRBC ABSOLUTE 0.00 K/mm3 (0.00-0.02); NRBC Auto 0.0 /100 WBC (0.0-0.2); Platelet Count 265 K/mm3 (150-400); RDW Coefficient Variation 13.9 % (11.7-14.2); RDW Standard Deviation 42.0 fL (35.1-46.3)
[2025-01-08 11:22] LABS: Alanine Aminotransfer (ALT/SGP 16.0 U/L (12-78); Albumin, Blood 2.3 g/dL (3.4-5.0); Albumin/Globulin Ratio 0.5 (0.8-1.8); Anion Gap 10.0 mmol/L (3-11); Aspartate Aminotrans (AST/SGOT 24.0 U/L (12-37); Bilirubin, Total 0.3 mg/dL (0.1-1.0); Blood Urea Nitrogen 25.0 mg/dL (8-24); CO2, Blood 21.0 mmol/L (21-32); Calcium, Blood 7.8 mg/dL (8.5-10.1); Chloride, Blood 107.0 mmol/L (98-108); Creatinine, Blood 1.64 mg/dL (0.60-1.20); Globulin, Blood 4.2 g/dL (2.2-4.0); Glucose, Blood 135.0 mg/dL (70-99); Potassium, Blood 4.2 mmol/L (3.5-5.5); Sodium, Blood 134.0 mmol/L (136-145); Total Protein, Blood 6.5 g/dL (6.4-8.2)
[2025-01-08 11:22] LABS: Source, Urine Clean Catch
[2025-01-08 11:32] LABS: Bilirubin, Urine Neg (Neg); Color, Urine Yellow (P-Yellow); Glucose Qualitative, Urine Neg (Neg); Ketones, Urine Neg (Neg); Leukocyte Esterase, Urine 3+ (Neg); Protein, Urine 3+ (Neg); Specific Gravity, Urine 1.015 (1.003-1.022); Urobilinogen, Urine NORM (Normal)
[2025-01-08 11:44] LABS: White Blood Cells, Urine TNTC /hpf (0-5)
[2025-01-08] MEDS ORDERED: LEVFLO500 PO (13:20)
[2025-01-08] MEDS ORDERED: LevoFLOXacin 750 MG/D5W 150ML 150 ML IV ONE (13:20)
[2025-01-08 15:20] VITALS: BP 186/84
== END 2025-01-08 15:25 | disposition home or self-care (01) ==
LOC: ER 10:32
PROVIDERS: Emergency Medicine
DX: N39.0 Urinary tract infection, site not specified (principal); J18.9 Pneumonia, unspecified organism
CPT/HCPCS: 36415; 71046; 80053; 81001; 83605; 85025; 87040; 87077; 87086; 87186; 96365; 99283-25; J1956

== ENCOUNTER 2025-05-05 10:36 | Inpatient (IN) | payer MEDICARE, OTHER ==
[~2025-05-05] VITALS: Ht 180.3 cm; Wt 63.4 kg
[~2025-05-05 10:36] MED LIST changes: +LEVFLO500 PO
[2025-05-05 11:08] LABS: BASOPHILS ABSOLUTE AUTO 0.08 K/mm3 (0.00-0.23); BASOPHILS PERCENT AUTO 2 % (0-2); EOSINOPHILS ABSOLUTE AUTO 0.26 K/mm3 (0.00-0.68); EOSINOPHILS PERCENT AUTO 5 % (0-6); Hematocrit 39.9 % (37.0-53.0); Hemoglobin 13.1 g/dL (13.5-17.5); IMMATURE GRAN ABSOLUTE AUTO 0.02 K/mm3 (0.00-0.10); IMMATURE GRAN PERCENT AUTO 0 % (0-1); LYMPHOCYTES ABSOLUTE AUTO 0.80 K/mm3 (0.84-5.20); LYMPHOCYTES PERCENT AUTO 15 % (21-46); MONOCYTES ABSOLUTE AUTO 0.33 K/mm3 (0.16-1.47); MONOCYTES PERCENT AUTO 6 % (4-13); Mean Corpuscular HGB Conc 32.8 g/dL (31.5-36.5); Mean Corpuscular Volume 85 fL (80-100); NEUTROPHILS ABSOLUTE AUTO 4.00 K/mm3 (1.96-9.15); NEUTROPHILS PERCENT AUTO 73 % (41-73); NRBC ABSOLUTE 0.00 K/mm3 (0.00-0.02); NRBC Auto 0.0 /100 WBC (0.0-0.2); Platelet Count 305 K/mm3 (150-400); RDW Coefficient Variation 14.3 % (11.7-14.2); RDW Standard Deviation 44.4 fL (35.1-46.3)
[2025-05-05 11:28] LABS: Alanine Aminotransfer (ALT/SGP 14.0 U/L (12-78); Albumin, Blood 2.9 g/dL (3.4-5.0); Albumin/Globulin Ratio 0.7 (0.8-1.8); Anion Gap 9.0 mmol/L (3-11); Aspartate Aminotrans (AST/SGOT 16.0 U/L (12-37); Bilirubin, Total 0.3 mg/dL (0.1-1.0); Blood Urea Nitrogen 38.0 mg/dL (8-24); CO2, Blood 19.0 mmol/L (21-32); Calcium, Blood 8.4 mg/dL (8.5-10.1); Chloride, Blood 111.0 mmol/L (98-108); Creatinine, Blood 1.96 mg/dL (0.60-1.20); Globulin, Blood 4.2 g/dL (2.2-4.0); Glucose, Blood 159.0 mg/dL (70-99); Potassium, Blood 4.4 mmol/L (3.5-5.5); Sodium, Blood 135.0 mmol/L (136-145); Total Protein, Blood 7.1 g/dL (6.4-8.2)
[2025-05-05] MEDS ORDERED: FLU VACC TS2025(65UP)/MF59C/PF 45 MCG/0.5 ML SYRINGE IM SCH (15:20)
[2025-05-05] MEDS ORDERED: CeFAZolin Sodium 1,000 MG in NS 50 ML IV SCH (16:00)
[2025-05-05 17:35] VITALS: BP 179/94
--- NOTE | 2025-05-05 18:41 | NUR ---
SHIFT SUMMARY/ADMIT PT AOX4, COOPERATIVE, ABLE TO MAKE NEEDS KNOWN. PT DOES HAVE AGRESSIVE DEMEANOR. TOLERATING MEDICATIONS. UPON ARRIVAL, PT HYPERTENSIVE, PT REFUSED MEDICATIONS, EDUCATED ON LIKELY PATH IF MEDICATTION NOT ACCEPTED, PT OPTED TO TAKE MEDICATION. ON ROOM AIR. Flores CARRIZALES, PODIATRY CONSULTED AND ARRIVED. BED ALARM ACTIVE. BED IN LOWEST POSITION, CALL LIGHT WITHIN REACH.
[2025-05-05 19:28] VITALS: BP 80/63
[2025-05-05 19:31] VITALS: BP 144/61
[2025-05-05] MEDS ORDERED: NITR.4SL SL (22:21)
[2025-05-05] MEDS ORDERED: NS 250 ML IV PRN (23:30)
--- NOTE | 2025-05-06 04:25 | NUR ---
NO ACUTE CHANGES DURING SHIFT. PATIENT ALERT AND ORIENTED X4, ABLE TO MAKE NEEDS KNOWN. PATIENT ABLE TO TURN SELF IN BED, 1 ASSIST OUT OF THE BED. PATIENT ON ROOM AIR. NO COMPLAINTS OF SOB. NO COMPLAINTS OF PAIN. PATIENT RECEIVED IV ANTIBIOTICS. BED IN LOW POSITION WITH WHEELS LOCKED. CALL LIGHT WITHIN REACH
[2025-05-06 04:36] VITALS: BP 157/71
[2025-05-06 05:12] LABS: BASOPHILS ABSOLUTE AUTO 0.07 K/mm3 (0.00-0.23); BASOPHILS PERCENT AUTO 1 % (0-2); EOSINOPHILS ABSOLUTE AUTO 0.25 K/mm3 (0.00-0.68); EOSINOPHILS PERCENT AUTO 5 % (0-6); Hematocrit 33.8 % (37.0-53.0); Hemoglobin 11.4 g/dL (13.5-17.5); IMMATURE GRAN ABSOLUTE AUTO 0.00 K/mm3 (0.00-0.10); IMMATURE GRAN PERCENT AUTO 0 % (0-1); LYMPHOCYTES ABSOLUTE AUTO 0.89 K/mm3 (0.84-5.20); LYMPHOCYTES PERCENT AUTO 17 % (21-46); MONOCYTES ABSOLUTE AUTO 0.34 K/mm3 (0.16-1.47); MONOCYTES PERCENT AUTO 6 % (4-13); Mean Corpuscular HGB Conc 33.7 g/dL (31.5-36.5); Mean Corpuscular Volume 84 fL (80-100); NEUTROPHILS ABSOLUTE AUTO 3.74 K/mm3 (1.96-9.15); NEUTROPHILS PERCENT AUTO 71 % (41-73); NRBC ABSOLUTE 0.00 K/mm3 (0.00-0.02); NRBC Auto 0.0 /100 WBC (0.0-0.2); Platelet Count 266 K/mm3 (150-400); RDW Coefficient Variation 14.1 % (11.7-14.2); RDW Standard Deviation 43.1 fL (35.1-46.3)
[2025-05-06 05:53] LABS: Anion Gap 9.0 mmol/L (3-11); Blood Urea Nitrogen 41.0 mg/dL (8-24); CO2, Blood 21.0 mmol/L (21-32); Calcium, Blood 8.1 mg/dL (8.5-10.1); Chloride, Blood 110.0 mmol/L (98-108); Creatinine, Blood 1.79 mg/dL (0.60-1.20); Glucose, Blood 105.0 mg/dL (70-99); Potassium, Blood 4.1 mmol/L (3.5-5.5); Sodium, Blood 136.0 mmol/L (136-145)
[2025-05-06 07:32] VITALS: BP 155/99
[2025-05-06] MEDS ORDERED: Enoxaparin 40 MG/0.4 ML SYR SC SCH (09:00)
[2025-05-06] MEDS ORDERED: Carvedilol12.5 MG PO (11:27)
[2025-05-06] MEDS ORDERED: Cephalexin250 MG/5 M PO (11:28)
[2025-05-06] MEDS ORDERED: CEPH500 PO (11:51)
--- NOTE | 2025-05-06 12:02 | NUR ---
[facility] TO CLARIFY ANTIBIOTIC DOSING. CALL TO DR. CHAPPELL TO CONFIRM KEFLEX 1000MG PO TID FOR 10 DAYS. CALL TO [facility] TO UPDATE PHARMACIST.
--- NOTE | 2025-05-06 13:31 | NUR ---
ROUNDED ON PT PER REQUEST. PATIENT WANTED TO DISCUSS ADVANCED CARE PLANNING. PROVIDE POLST FORM. AFTER DISCUSSION PATIENT ELECTED DNR AND SELECTIVE INTERVENTIONS. PROVIDER SIGNED. COPY SENT TO REGISTRY AND MEDICAL RECORDS, ORIG. SENT WITH PATIENT
--- NOTE | 2025-05-06 13:45 | NUR ---
PT DISCHARGED TO HOME. DISCHARGE INSTRUCTIONS PROVIDED AND EDUCATED ON AT TIME OF DISCHARGE. MEDICATIONS FAXED TO [facility].
== END 2025-05-06 13:45 | disposition home or self-care (01) | DRG 638 ==
LOC: ER 10:36 → MEDS 15:13
PROVIDERS: Physician Assistant; ADMIT Internal Medicine
DX: E11.69 Type 2 diabetes mellitus with other specified complication (principal); E87.1 Hypo-osmolality and hyponatremia; I48.20 Chronic atrial fibrillation, unspecified; M86.671 Other chronic osteomyelitis, right ankle and foot; N17.9 Acute kidney failure, unspecified; E11.22 Type 2 diabetes mellitus with diabetic chronic kidney disease; N18.30 Chronic kidney disease, stage 3 unspecified; I25.10 Atherosclerotic heart disease of native coronary artery without angina pectoris; E78.5 Hyperlipidemia, unspecified; I48.91 Unspecified atrial fibrillation; E11.51 Type 2 diabetes mellitus with diabetic peripheral angiopathy without gangrene; D63.1 Anemia in chronic kidney disease; N20.0 Calculus of kidney; Z89.512 Acquired absence of left leg below knee; I69.341 Monoplegia of lower limb following cerebral infarction affecting right dominant side; I25.2 Old myocardial infarction; Z85.038 Personal history of other malignant neoplasm of large intestine; Z90.49 Acquired absence of other specified parts of digestive tract; Z89.421 Acquired absence of other right toe(s); Z91.0110 Allergy to milk products, unspecified; Z88.5 Allergy status to narcotic agent; Z88.0 Allergy status to penicillin
CPT/HCPCS: 36415; 73630; 73718; 80048; 80053; 85025; 85651; 86140; 99285-25; A9270; J0690